=== PATIENT | male | born 1950 | race African-American/Black ===

== ENCOUNTER 2019-12-14 13:47 | Inpatient (IN) | payer MEDICARE ==
[2019-12-14 15:10] LABS: HEMATOCRIT 24.4 % (37.9-51.0); HEMOGLOBIN 8.3 g/dL (13.5-17.0); MEAN CORPUSCULAR HGB CONC 34.1 g/dL (32.0-36.0); MEAN CORPUSCULAR VOLUME 94 fl (80-97); PLATELET COUNT 312 10^3/uL (150-450); RED CELL DISTRIBUTION WIDTH 14.2 % (11.5-14.0)
[2019-12-14 15:16] LABS: ALKALINE PHOSPHATASE 721 U/L (38-126); ASPARTATE AMINO TRANSFERASE 19 U/L (17-59); BILIRUBIN,DIRECT 5.3 mg/dL (0.0-0.4); BILIRUBIN,TOTAL 5.7 mg/dL (0.2-1.3); CALCIUM 8.6 mg/dL (8.4-10.2); CHLORIDE 95 mmol/L (98-107); GLUCOSE 178 mg/dL (75-110); POTASSIUM 4.9 mmol/L (3.6-5.0); TOTAL PROTEIN 8.2 g/dL (6.3-8.2)
--- NOTE | 2019-12-14 15:22 | ER Document Report ---
ED General - General Chief Complaint: General Weakness Stated Complaint: GENERAL WEAKNESS Time Seen by Provider: 12/14/19 14:50 Notes: CHIEF COMPLAINT: Generalized weakness HPI: 69-year-old male who is a poor historian brought in for evaluation of generalized weakness over the last 2 months progressively worsening to the point that he is now not able to ambulate because of generalized weakness. Patient has not had fever nausea vomiting but was noticed to be jaundiced by EMS. Patient does report prior history of alcoholism but has not had a drink in 2 years per the patient. Patient does report abdominal discomfort. Patient does report shortness of breath. ROS: See HPI - all other systems were reviewed and are otherwise negative Constitutional: no fever Eyes: no drainage, no blurred vision, + jaundice ENT: no runny nose, no sore throat Cardiovascular: no chest pain Resp: + SOB, no cough GI: no vomiting, no diarrhea, + abdominal pain : no dysuria Integumentary: + rash Allergy: no hives Musculoskeletal: no extremity pain or swelling Neurological: no numbness/tingling, + weakness MEDICATIONS: I agree with the patient medications as charted by the RN. ALLERGIES: I agree with the allergies as charted by the RN. PAST MEDICAL HISTORY/PAST SURGICAL HISTORY: Reviewed and agree as charted by RN. SOCIAL HISTORY: Reviewed and agree as charted by RN. FAMILY HISTORY: No significant familial comorbid conditions directly related to patient complaint EXAM: Reviewed vital signs as charted by RN. CONSTITUTIONAL: Alert and oriented and responds appropriately to questions. Cachectic-appearing HEAD: Normocephalic; atraumatic EYES: PERRL; Conjunctivae clear, sclerae icteric ENT: normal nose; no rhinorrhea; moist mucous membranes; pharynx without lesions noted, no uvula edema or deviation, no tonsillar hypertrophy, phonation normal NECK: Supple without meningismus; non-tender; no cervical lymphadenopathy, no masses CARD: RRR; no murmurs, no clicks, no rubs, no gallops; symmetric distal pulses RESP: Normal chest excursion without splinting or tachypnea; breath sounds clear and equal bilaterally; no wheezes, no rhonchi, no rales, pulse oximetry 100% on room air not hypoxic ABD/GI: Normal bowel sounds; abdomen is distended, mildly generally tender. BACK: The back appears normal and is non-tender to palpation, there is no CVA tenderness EXT: Normal ROM in all joints; non-tender to palpation; no cyanosis, no e ffusions, no edema SKIN: Jaundiced color for age and race; warm; dry; good turgor; slight breakdown of skin in the sacral and upper gluteal region is noted NEURO: Moves all extremities equally; Motor and sensory function intact, mild generalized weakness in all extremities is noted PSYCH: The patient's mood and manner are appropriate. Grooming and personal hygiene are appropriate. MDM: 69-year-old male with unknown medical history brought for evaluation of shortness of breath abdominal distention and generalized weakness. Symptoms have been progressive apparently over the last 1 to 2 months. Patient now not able to walk on his own. Does live with his sister who moved him out of his ho use because of poor living conditions. Abdomen is significantly distended, patient is jaundiced. Will obtain screening labs, plan for CT of the abdomen given the distention but will obtain chest x-ray and KUB x-ray to evaluate for obstructive pattern - Related Data Allergies/Adverse Reactions: No Known Allergies Allergy (Verified 12/14/19 15:43) Past Medical History - Social History Smoking Status: Unknown if Ever Smoked Chew tobacco use (# tins/day): Yes Family History: Reviewed & Not Pertinent Patient has suicidal ideation: No Patient has homicidal ideation: No - Immunizations Hx Diphtheria, Pertussis, Tetanus Vaccination: No - greater than 5 years Hx Pneumococcal Vaccination: 06/18/10 Physical Exam - Vital signs Vitals: Resp Pulse Ox 28 H 100 12/14/19 13:53 12/14/19 13:53 Course - Re-evaluation Re-evalutation: 12/14/19 15:29 I did note that the patient's lactic acid was 5.7 this may be dehydration. He is mildly tachycardic, very cachectic. I will start hydrating patient towards 30 mL/kg for sepsis protocol. As I was speaking with the radiologist about the patient's x-ray imaging she believes he has a large volvulus, also believes his urinary bladder is massively distended, recommending Lynn catheter. Will have nursing place this. While I was speaking with nursing lab called about the patient's lab work, his creatinine is 22. Will not scan with IV contrast. 12/14/19 15:[address] Montero, attending. discussed with Dr. Townsend, surgery. Case was discussed. Given the severe metabolic abnormalities recommends medical or team truck driver admission but he will come see the patient in consult 12/14/19 15:[address] Avila the team truck driver who will come see the patient. We did discuss the patient's lab work and imaging studies. I did discuss further imaging with CT and pose the question of oral contrast versus no contrast he indicated that questions should be directed to the surgeon. I spoke with Dr. Townsend who indicates that he is more concerned about the medical comorbidities and issues going on with the patient at this time states he will come and see the patient and will address the contrast issue for CT imaging after he evaluates the patient and will discuss this with Dr. Avila to figure out further imaging as necessary. - Vital Signs Vital signs: Temp Pulse Resp BP Pulse Ox 24 H 152/81 H 100 12/14/19 14:01 12/14/19 14:01 12/14/19 14:01 - Laboratory Result Diagrams: 12/14/19 14:24 12/14/19 14:24 Laboratory results interpreted by me: 12/14/19 12/14/19 12/14/19 14:24 14:24 14:24 WBC 27.0 H RBC 2.60 L Hgb 8.3 L Hct 24.4 L RDW 14.2 H Seg Neuts % (Manual) 89 H Band Neutrophils % 6 H Lymphocytes % (Manual) 1 L Abs Neuts (Manual) 25.7 H Abs Lymphs (Manual) 0.3 L Sodium 135.0 L Chloride 95 L Carbon Dioxide < 5 L* BUN 217 H Creatinine 22.36 H Est GFR ( Amer) 2 L Est GFR (MDRD) Non-Af 2 L Glucose 178 H Lactic Acid 5.7 H Total Bilirubin 5.7 H Direct Bilirubin 5.3 H Alkaline Phosphatase 721 H Creatine Kinase NT-Pro-B Natriuret Pep Lipase 483.2 H 12/14/19 12/14/19 14:24 14:24 WBC RBC Hgb Hct RDW Seg Neuts % (Manual) Band Neutrophils % Lymphocytes % (Manual) Abs Neuts (Manual) Abs Lymphs (Manual) Sodium Chloride Carbon Dioxide BUN Creatinine Est GFR ( Amer) Est GFR (MDRD) Non-Af Glucose Lactic Acid Total Bilirubin Direct Bilirubin Alkaline Phosphatase Creatine Kinase 32 L NT-Pro-B Natriuret Pep 1240 H Lipase Discharge - Discharge Clinical Impression: Sigmoid volvulus, Jaundice Sepsis Qualifiers: Sepsis type: sepsis due to unspecified organism Sepsis acute organ dysfunction status: with acute organ dysfunction Severe sepsis acute organ dysfunction type: acute renal failure Acute renal failure type: unspecified Severe sepsis shock status: unspecified Qualified Code(s): A41.9 - Sepsis, unspecified organism; R65.20 - Severe sepsis without septic shock; N17.9 - Acute kidney failure, unspecified Acute renal failure (ARF) Qualifiers: Acute renal failure type: unspecified Qualified Code(s): N17.9 - Acute kidney failure, unspecified Condition: Serious Disposition: ADMITTED INPATIENT Admitting Provider: Margarita (Equipment Engineering Technician) Unit Admitted: ICU
[2019-12-14 15:29] LABS: ABSOLUTE LYMPHOCYTES# (MANUAL) 0.3 10^3/uL (0.5-4.7); ABSOLUTE MONOCYTES # (MANUAL) 1.1 10^3/uL (0.1-1.4); BAND NEUTROPHILS % (MANUAL) 6 % (3-5); BASOPHILS % (MANUAL) 0 % (0-2); EOSINOPHILS % (MANUAL) 0 % (0-6); LYMPHOCYTES % (MANUAL) 1 % (13-45); MONOCYTES % (MANUAL) 4 % (3-13); SEGMENTED NEUTROPHILS % (MAN) 89 % (42-78); TOTAL CELLS COUNTED 100
[2019-12-14] MEDS ORDERED: RINGERS SOLUTION,LACTATED 1,000 ML IV ONE (15:29)
[2019-12-14 15:30] LABS: ANISOCYTOSIS SLIGHT; PLATELET COMMENT ADEQUATE; TOXIC GRANULATION SLIGHT
[2019-12-14 15:31] LABS: BLOOD UREA NITROGEN 217 mg/dL (7-20)
[2019-12-14 15:32] LABS: CARBON DIOXIDE < 5 mmol/L (22-30)
--- NOTE | 2019-12-14 15:33 | RADIOLOGY REPORT (SQ) ---
EXAM DESCRIPTION: CHEST SINGLE VIEW IMAGES COMPLETED DATE/TIME: 12/14/2019 3:22 pm REASON FOR STUDY: sob COMPARISON: None. EXAM PARAMETERS: NUMBER OF VIEWS: One view. TECHNIQUE: Single frontal radiographic view of the chest acquired. RADIATION DOSE: NA LIMITATIONS: None. FINDINGS: LUNGS AND PLEURA: Minimal right basilar atelectasis. Lungs otherwise well inflated and cl ear. No pleural effusion. No pneumothorax MEDIASTINUM AND HILAR STRUCTURES: No masses. Contour normal. HEART AND VASCULAR STRUCTURES: Heart normal in size. Normal vasculature. BONES: No acute findings. HARDWARE: None in the chest. OTHER: Gaseous distension of bowel loops under the hemidiaphragms IMPRESSION: Right basilar atelectasis Gaseous distention of bowel loops under the right and left hemidiaphragm TECHNICAL DOCUMENTATION: JOB ID: [id number] 2010 [employer]- All Rights Reserved Reading location - IP/workstation name: [email or web address]
[2019-12-14] MEDS ORDERED: ONDANSETRON HCL INJ/PF 4 MG/2 ML SDV IV ONE (15:35)
--- NOTE | 2019-12-14 15:39 | RADIOLOGY REPORT (SQ) ---
EXAM DESCRIPTION: KUB/ABDOMEN (SINGLE VIEW) IMAGES COMPLETED DATE/TIME: 12/14/2019 3:22 pm REASON FOR STUDY: abd distention COMPARISON: None. NUMBER OF VIEWS: One view. TECHNIQUE: Supine radiographic image of the abdomen acquired. LIMITATIONS: None. FINDINGS: BOWEL GAS PATTERN: Massively distended colon in the pelvis worrisome for sigmoid volvulus. Markedly distended urinary bladder. Findings called to Emil Hodgson in the emergency room. CALCIFICATIONS: No suspicious calcifications. SOFT TISSUES: No hepatosplenomegaly. HARDWARE: None in the abdomen. BONES: No acute fracture. No worrisome bone lesions. OTHER: No other significant finding. IMPRESSION: Marked urinary bladder distention Distended tortuous sigmoid colon worrisome for sigmoid volvulus TECHNICAL DOCUMENTATION: JOB ID: [id number] 2010 [employer]- All Rights Reserved Reading location - IP/workstation name: [email or web address]
[2019-12-14 15:43] LABS: NT PRO BNP 1240 pg/mL (<125)
[2019-12-14 15:44] LABS: TROPONIN I < 0.012 ng/mL
[2019-12-14] MEDS ORDERED: PIPERACILLIN/TAZOBACTAM 3.375 GM VIAL IV ONE (15:44)
[2019-12-14 16:06] LABS: APPEARANCE,URINE SLIGHTLY-CLOUDY; BILIRUBIN,URINE NEGATIVE (NEGATIVE); COLOR,URINE AMBER; GLUCOSE, URINE NEGATIVE (NEGATIVE); KETONES,URINE NEGATIVE (NEGATIVE); LEUKOCYTE ESTERASE,URINE NEGATIVE (NEGATIVE); NITRITE,URINE NEGATIVE (NEGATIVE); PROTEIN,URINE 30 mg/dL (NEGATIVE); URINE SPECIFIC GRAVITY 1.013; UROBILINOGEN,URINE NEGATIVE mg/dL (<2.0)
--- NOTE | 2019-12-14 16:21 | PDOC CRITICAL CARE PROG REPORT ---
General Date:: 12/14/19 Resuscitation Status: Full Code Events in the past 12 to 24 Hours:: 69-year-old -Togolese male who has had no recent medical care. Staying in our records is an ER visit in 2010 for hypertension. Is been ill for several months and was living alone but now lives with his sister. He is become very weak and is not ambulatory anymore. He presents with abdominal distention and some shortness of breath. He is found to have what is almost certainly a large bowel obstruction possibly due to a volvulus but obviously colon cancer is a possibility given the other findings. He is not a very good historian. Physical Exam Vital Signs: Temp Pulse Resp BP Pulse Ox 24 H 152/81 H 100 12/14/19 14:01 12/14/19 14:01 12/14/19 14:01 Intake & Output 12/13/19 12/14/19 12/15/19 06:59 06:59 06:59 Weight 67.2 kg Weight/Height Weight 67.2 kg Height 5 ft 6 in General appearance: PRESENT: disheveled, mild distress, thin Eye exam: PRESENT: conjunctival injection, EOMI, PERRLA, scleral icterus Mouth exam: PRESENT: dry mucosa, neck supple Neck exam: ABSENT: thyromegaly Respiratory exam: PRESENT: decreased breath sounds Cardiovascular exam: PRESENT: RRR Pulses: PRESENT: +1 pedal pulses bilateral GI/Abdominal exam: PRESENT: diminished bowel sounds, distended, firm Rectal exam: ABSENT: heme (+) stool Psychiatric exam: PRESENT: depressed Skin exam: PRESENT: jaundice Laboratory/Radiographs Laboratory Results: 12/14/19 14:24 12/14/19 14:24 12/14/19 12/14/19 12/14/19 14:24 14:24 14:24 WBC 27.0 H RBC 2.60 L Hgb 8.3 L Hct 24.4 L MCV 94 MCH 32.0 MCHC 34.1 RDW 14.2 H Plt Count 312 Seg Neutrophils % Not Reportable Sodium 135.0 L Potassium 4.9 Chloride 95 L Carbon Dioxide < 5 L* Anion Gap Not Reportable BUN 217 H Creatinine 22.36 H Est GFR ( Amer) 2 L Glucose 178 H Lactic Acid 5.7 H Calcium 8.6 Total Bilirubin 5.7 H AST 19 Alkaline Phosphatase 721 H Ammonia Total Protein 8.2 Albumin 4.0 Lipase 483.2 H Urine Color Urine Appearance Urine pH Ur Specific [place] Urine Protein Urine Glucose (UA) Urine Ketones Urine Blood Urine Nitrite Ur Leukocyte Esterase Urine WBC (Auto) Urine RBC (Auto) 12/14/19 12/14/19 15:25 15:45 WBC RBC Hgb Hct MCV MCH MCHC RDW Plt Count Seg Neutrophils % Sodium Potassium Chloride Carbon Dioxide Anion Gap BUN Creatinine Est GFR ( Amer) Glucose Lactic Acid Calcium Total Bilirubin AST Alkaline Phosphatase Ammonia 153.6 H Total Protein Albumin Lipase Urine Color KATIA Urine Appearance SLIGHTLY-CLOUDY Urine pH 5.0 Ur Specific [place] 1.013 Urine Protein 30 H Urine Glucose (UA) NEGATIVE Urine Ketones NEGATIVE Urine Blood SMALL H Urine Nitrite NEGATIVE Ur Leukocyte Esterase NEGATIVE Urine WBC (Auto) 16 Urine RBC (Auto) 21 12/14/19 12/14/19 14:24 14:24 Creatine Kinase 32 L Troponin I < 0.012 NT-Pro-B Natriuret Pep 1240 H Impressions: Chest X-Ray 12/14/19 15:01 IMPRESSION: Right basilar atelectasis Gaseous distention of bowel loops under the right and left hemidiaphragm KUB X-Ray 12/14/19 15:01 IMPRESSION: Marked urinary bladder distention Distended tortuous sigmoid colon worrisome for sigmoid volvulus Assessment and Plan - Diagnosis (1) Sepsis Qualifiers: Sepsis type: sepsis due to unspecified organism Sepsis acute organ dysfunction status: with acute organ dysfunction Severe sepsis acute organ dysfunction type: acute renal failure Acute renal failure type: unspecified Severe sepsis shock status: unspecified Is this a current diagnosis for this admission?: Yes Plan Summary: Impression: Sepsis from a bowel obstruction or bowel ischemia Acute renal failure secondary to above Jaundiced secondary to above or possibly liver mets Chest x-ray may well show a right hilar mass Plan: Aggressive of fluids Agree with Zosyn Blood cultures sent CT pelvis/abd Surgery consult Depending on CT findings, urgent surgery Given this presentation and his cachexia prognosis is guarded at best Critical Time Critical Time (minutes): 35 Level of Care: ICU -: 1. The care of a critical patient is a dynamic process. This note is a outbound call center representative synopsis but static in nature. The timeframe for treatments given in order is not necessarily the actual time these treatments may have been done. 2. This patient requires critical care secondary to ongoing requirements for therapy not offered or safe outside the critical care environment. Transfer to a lower level of care will result in altered life or limb morbidity and mortality. 3. Multidisciplinary rounds completed. 4. ABCDE bundle addressed.
[2019-12-14 16:32] LABS: ARTERIAL BLOOD BASE EXCESS -18.3 mmol/L; ARTERIAL BLOOD HCO3 7.1 mmol/L (20-24); ARTERIAL BLOOD O2 SATURATION 97.6 % (94-98); ARTERIAL BLOOD PH 7.25 (7.35-7.45); ARTERIAL BLOOD PO2 113.5 mmHg (80-100); ARTERIAL BLOOD TOTAL CO2 7.6 mmol/L (23-27)
[2019-12-14 16:33] LABS: ARTERIAL BLOOD FIO2 ROOM AIR
[2019-12-14 16:34] LABS: ARTERIAL BLOOD PCO2 16.6 mmHg (35-45)
--- NOTE | 2019-12-14 17:15 | PDOC CONSULTATION ---
Consultation Consult Date: 12/14/19 Attending physician:: DYLAN OWENS Provider Consulted: YULI CLAY Consult reason:: Rule out sigmoid volvulus History of Present Illness Admission Date/PCP: 12/14/19 16:11 History of Present Illness: ROCCO PADRON is a 69 year old male Is brought to the emergency department via ground rescue at the request of his sister. Patient cannot provide history of presenting illness. It is uncertain how long he has been sick. He does not see a doctor. Last visit to [facility] 2010 for hypertension. Patient was evaluated emergency department where he was found to be jaundiced, acidotic, transiently hypotensive. He received IV fluids, intravenous antibiotics. Abdominal film shows a massively distended colon with stool, possibly sigmoid volvulus. Surgery was consulted. Patient being admitted to the ICU for port of care. Plans are for CT scan of the abdomen and pelvis. Past Medical History Medical History: Other - Unable to obtained due to patient non-compos mentis Past Surgical History Past Surgical History: Unknown of any past surgical history; no historian to assist Social History Smoking Status: Unknown if Ever Smoked - Advance Directive Resuscitation Status: Full Code Family History Family History: None, Reviewed & Not Pertinent Parental Family History Reviewed: No Children Family History Reviewed: No Sibling(s) Family History Reviewed.: No Medication/Allergy Allergies/Adverse Reactions: No Known Allergies Allergy (Verified 12/14/19 15:43) Review of Systems ROS unobtainable: Due to mental status, Other - Patient cannot provide a history Physical Exam Vital Signs: Temp Pulse Resp BP Pulse Ox 20 145/86 H 100 12/14/19 16:01 12/14/19 16:01 12/14/19 16:01 Intake & Output 12/13/19 12/14/19 12/15/19 06:59 06:59 06:59 Intake Total 1000 Balance 1000 Weight 67.2 kg General appearance: PRESENT: other - Disheveled Afro-Thai male, poor dentition: Old blood in his mouth. Eye exam: PRESENT: scleral icterus - Sclerae icteric, other Mouth exam: PRESENT: other - Dried blood, poor dentition Neck exam: PRESENT: other - Limited range of motion of the neck Respiratory exam: PRESENT: rhonchi Cardiovascular exam: PRESENT: RRR Pulses: PRESENT: normal carotid pulses, normal femoral pulses GI/Abdominal exam: PRESENT: other - Abdomen is distended, moderately tympanitic, semi-firm. Small reducible umbilical hernia. Rectal exam: PRESENT: deferred Extremities exam: PRESENT: +2 edema Neurological exam: PRESENT: other - Awake communicates but disoriented Psychiatric exam: PRESENT: other - Reasonably calm Skin exam: PRESENT: jaundice Results Laboratory Results: 12/14/19 14:24 12/14/19 14:24 12/14/19 12/14/19 12/14/19 14:24 14:24 14:24 WBC 27.0 H RBC 2.60 L Hgb 8.3 L Hct 24.4 L MCV 94 MCH 32.0 MCHC 34.1 RDW 14.2 H Plt Count 312 Seg Neutrophils % Not Reportable Carbonic Acid HCO3/H2CO3 Ratio ABG pH ABG pCO2 ABG pO2 ABG HCO3 ABG O2 Saturation ABG Base Excess FiO2 Sodium 135.0 L Potassium 4.9 Chloride 95 L Carbon Dioxide < 5 L* Anion Gap Not Reportable BUN 217 H Creatinine 22.36 H Est GFR ( Amer) 2 L Glucose 178 H Lactic Acid 5.7 H Calcium 8.6 Total Bilirubin 5.7 H AST 19 Alkaline Phosphatase 721 H Ammonia Total Protein 8.2 Albumin 4.0 Lipase 483.2 H Urine Color Urine Appearance Urine pH Ur Specific [place] Urine Protein Urine Glucose (UA) Urine Ketones Urine Blood Urine Nitrite Ur Leukocyte Esterase Urine WBC (Auto) Urine RBC (Auto) 12/14/19 12/14/19 12/14/19 15:25 15:45 16:13 WBC RBC Hgb Hct MCV MCH MCHC RDW Plt Count Seg Neutrophils % Carbonic Acid 0.50 L HCO3/H2CO3 Ratio 14:1 ABG pH 7.25 L ABG pCO2 16.6 L* ABG pO2 113.5 H ABG HCO3 7.1 L ABG O2 Saturation 97.6 ABG Base Excess -18.3 FiO2 ROOM AIR Sodium Potassium Chloride Carbon Dioxide Anion Gap BUN Creatinine Est GFR ( Amer) Glucose Lactic Acid Calcium Total Bilirubin AST Alkaline Phosphatase Ammonia 153.6 H Total Protein Albumin Lipase Urine Color KATIA Urine Appearance SLIGHTLY-CLOUDY Urine pH 5.0 Ur Specific [place] 1.013 Urine Protein 30 H Urine Glucose (UA) NEGATIVE Urine Ketones NEGATIVE Urine Blood SMALL H Urine Nitrite NEGATIVE Ur Leukocyte Esterase NEGATIVE Urine WBC (Auto) 16 Urine RBC (Auto) 21 12/14/19 12/14/19 14:24 14:24 Creatine Kinase 32 L Troponin I < 0.012 NT-Pro-B Natriuret Pep 1240 H Impressions: Chest X-Ray 12/14/19 15:01 IMPRESSION: Right basilar atelectasis Gaseous distention of bowel loops under the right and left hemidiaphragm KUB X-Ray 12/14/19 15:01 IMPRESSION: Marked urinary bladder distention Distended tortuous sigmoid colon worrisome for sigmoid volvulus Assessment & Plan - Diagnosis (1) Sigmoid volvulus Is this a current diagnosis for this admission?: Yes Plan: Impression: Acute septic picture dehydration acute renal failure metabolic acidosis and a distended sigmoid colon Consistent with sigmoid volvulus; patient is poor historian, unable to obtain past medical history. Recommendations: 1. Resuscitation with IV fluids; agree with admission to the ICU, surgery consulting 2. Agree with CT scan of the abdomen and pelvis with at least an attempt at some oral contrast. Caution to be exercised to reduce risk of aspiration. 3. Patient may require emergent exploratory surgery if his condition does not improve in the near future. Patient's prognosis extremely guarded due to multiple acute embolic and physiologic derangements. (2) Metabolic acidosis Is this a current diagnosis for this admission?: Yes (3) Acute renal failure (ARF) Qualifiers: Acute renal failure type: unspecified Qualified Code(s): N17.9 - Acute kidney failure, unspecified Is this a current diagnosis for this admission?: Yes (4) Jaundice Is this a current diagnosis for this admission?: Yes (5) Sepsis Qualifiers: Sepsis type: sepsis due to unspecified organism Sepsis acute organ dysfunction status: with acute organ dysfunction Severe sepsis acute organ dysfunction type: acute renal failure Acute renal failure type: unspecified Severe sepsis shock status: unspecified Qualified Code(s): A41.9 - Sepsis, unspecified organism; R65.20 - Severe sepsis without septic shock; N17.9 - Acute kidney failure, unspecified Is this a current diagnosis for this admission?: Yes - Time Time Spent: 30 to 50 Minutes Smoking Cessation Education: 3 to 10 minutes
[2019-12-14] MEDS ORDERED: NORMAL SALINE 1000 ML 1,000 ML IV PRN (17:31)
--- NOTE | 2019-12-14 18:17 | RADIOLOGY REPORT (SQ) ---
EXAM DESCRIPTION: CT ABD/PELVIS ORAL ONLY IMAGES COMPLETED DATE/TIME: 12/14/2019 5:58 pm REASON FOR STUDY: abd dist COMPARISON: None. TECHNIQUE: CT scan of the abdomen and pelvis performed with oral contrast and no intravenous contras t. Images reviewed with lung, soft tissue, and bone windows. Reconstructed coronal and sagittal MPR i mages reviewed. All images stored on PACS. All CT scanners at this facility use dose modulation, iterative reconstruction, and/or weight based d osing when appropriate to reduce radiation dose to as low as reasonably achievable (ALARA). [facility]: Dose Right [facility]: CareDose [facility]: Dose Right [facility]: Teradose 4D [facility]: Smart SmashFly RADIATION DOSE: CT Rad equipment meets quality standard of care and radiation dose reduction techniq ues were employed. CTDIvol: 4.8 mGy. DLP: 284 mGy-cm.mGy. LIMITATIONS: None. FINDINGS: LOWER CHEST: No significant findings. No nodules or infiltrates. NON-CONTRASTED LIVER, SPLEEN, ADRENALS: Evaluation limited by lack of IV contrast. No identified sign ificant masses. PANCREAS: Calcifications along the distribution of the pancreas may reflect chronic pancreatitis. GALLBLADDER: No identified stones by CT criteria. No inflammatory changes to suggest cholecystitis. RIGHT KIDNEY AND URETER: No overt renal calculi or gross obstruction. Limited evaluation. LEFT KIDNEY AND URETER: No overt renal calculi are gross obstruction. Limited evaluation. AORTA AND RETROPERITONEUM: Atherosclerotic aorta without aneurysm. BOWEL AND PERITONEAL CAVITY: Massively dilated markedly redundant stool-filled distal colon. This pr edominantly involves the descending and tortuous sigmoid colon and rectum. Proximal large bowel is d ifficult to discretely visualize, likely completely decompressed. No small bowel dilatation suggeste d. There is narrowing in the left lower quadrant at the junction of the descending colon and sigmoid colon. This is not felt to be a fixed point of obstruction but rather represents interposition of t his segment of colon between the iliopsoas muscle and adjacent distended colon. Please see image 58/ 106. No clear point of twisting/volvulus appreciated. There is mild ascites. No free air detected. APPENDIX: Not visualized. PELVIS, BLADDER, AND ABDOMINAL WALL: Lynn catheter decompresses the bladder. Bladder mildly thick-w alled. No bowel containing hernia. BONES: No significant findings. OTHER: Extremely heterogeneous bone density. 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 Corre late with history. IMPRESSION: 1. Massively dilated stool-filled redundant sigmoid colon. Distention also extends to involve the de scending colon. While sigmoid volvulus remains in the differential, it is felt to be less likely as a clear point of twisting or fixed obstruction is not identified. 2. Mild ascites. TECHNICAL DOCUMENTATION: JOB ID: [id number] Quality ID # [id number]: Final reports with documentation of one or more dose reduction techniques (e.g., Au tomated exposure control, adjustment of the mA and/or kV according to patient size, use of iterative reconstruction technique) 2010 [employer]- All Rights Reserved Reading location - IP/workstation name: [email or web address]
[2019-12-14] MEDS: DEXTROSE 5%-LACTATED RINGERS 1,000 ML IV PRN (19:50)
[2019-12-14] MEDS ORDERED: INFLUENZA QUAD (6MOS+) 2019-20 VAC 0.5 ML SYR IM ONE (20:09)
[2019-12-14] MEDS ORDERED: PIPERACILLIN/TAZOBACTAM 2.25 GM VIAL IV PRN (20:31)
[2019-12-14] MEDS: PIPERACILLIN SODIUM/TAZOBACTAM 2.25 GM in NORMAL SALINE 50 ML IV SCH (21:36)
[2019-12-15] MEDS: DEXTROSE 5%-LACTATED RINGERS 1,000 ML IV PRN (03:21)
[2019-12-15] MEDS: PIPERACILLIN SODIUM/TAZOBACTAM 2.25 GM in NORMAL SALINE 50 ML IV SCH ×4 (03:22→21:34)
[2019-12-15] MEDS ORDERED: VECURONIUM BROMIDE INJ 10 MG VIAL IV ONE (07:49)
[2019-12-15] MEDS ORDERED: SUCCINYLCHOLINE CHLORIDE INJ 200 MG/10 ML VIAL ONE (07:49)
[2019-12-15 08:28] LABS: PROTHROMBIN TIME 18.3 SEC (11.4-15.4)
[2019-12-15 08:29] LABS: HEMATOCRIT 21.5 % (37.9-51.0); MEAN CORPUSCULAR HEMOGLOBIN 32.6 pg (27.0-33.4); MEAN CORPUSCULAR HGB CONC 35.4 g/dL (32.0-36.0); MEAN CORPUSCULAR VOLUME 92 fl (80-97); PARTIAL THROMBOPLASTIN TIME 36.6 SEC (23.5-35.8); PLATELET COUNT 240 10^3/uL (150-450); RED BLOOD COUNT 2.33 10^6/uL (4.35-5.55); RED CELL DISTRIBUTION WIDTH 14.5 % (11.5-14.0); WHITE BLOOD COUNT 16.1 10^3/uL (4.0-10.5)
[2019-12-15 08:42] LABS: ALBUMIN 3.2 g/dL (3.5-5.0); ALKALINE PHOSPHATASE 426 U/L (38-126); ASPARTATE AMINO TRANSFERASE 29 U/L (17-59); BILIRUBIN,DIRECT 3.7 mg/dL (0.0-0.4); BILIRUBIN,TOTAL 4.9 mg/dL (0.2-1.3); CALCIUM 9.4 mg/dL (8.4-10.2); GLUCOSE 95 mg/dL (75-110); TOTAL PROTEIN 6.8 g/dL (6.3-8.2)
[2019-12-15 08:57] LABS: ABSOLUTE LYMPHOCYTES# (MANUAL) 0.3 10^3/uL (0.5-4.7); ABSOLUTE MONOCYTES # (MANUAL) 0.8 10^3/uL (0.1-1.4); BAND NEUTROPHILS % (MANUAL) 9 % (3-5); BASOPHILS % (MANUAL) 0 % (0-2); EOSINOPHILS % (MANUAL) 0 % (0-6); LYMPHOCYTES % (MANUAL) 2 % (13-45); MONOCYTES % (MANUAL) 5 % (3-13); NUCLEATED RED BLOOD CELLS 1 /100 WBC (0); SEGMENTED NEUTROPHILS % (MAN) 84 % (42-78); TOTAL CELLS COUNTED 100
--- NOTE | 2019-12-15 08:57 | EKG REPORT ---
SEVERITY:- ABNORMAL ECG - SINUS TACHYCARDIA LOW VOLTAGE IN FRONTAL LEADS POOR R WAVE PROGRESSION ANTERIOR LEADS : Confirmed by: Bear Castellanos MD 15-Dec-2019 08:56:49
[2019-12-15 08:58] LABS: ANISOCYTOSIS SLIGHT; BURR CELLS SLIGHT; PLATELET COMMENT ADEQUATE; POLYCHROMASIA 1+
[2019-12-15 09:00] LABS: CHLORIDE 112 mmol/L (98-107)
[2019-12-15 09:03] LABS: ANION GAP 22 (5-19); POTASSIUM 3.6 mmol/L (3.6-5.0)
[2019-12-15 09:04] LABS: BLOOD UREA NITROGEN 185 mg/dL (7-20)
[2019-12-15 09:05] LABS: CARBON DIOXIDE 8 mmol/L (22-30)
[2019-12-15 09:16] LABS: HEMOGLOBIN 7.6 g/dL (13.5-17.0)
--- NOTE | 2019-12-15 09:57 | PDOC PROGRESS REPORT ---
Subjective Progress Note for:: 12/15/19 Reason For Visit: BOWEL OBSTRUCTION Patient examined in the ICU. He remains hemodynamically stable. No significant events overnight. Rectal drainage tube installed with acceptable results. Urine output good, and turbidity clearing over the last 12 hours. Physical Exam Vital Signs: Temp Pulse Resp BP Pulse Ox 98.6 F 110 H 16 113/70 100 12/15/19 08:00 12/15/19 08:00 12/15/19 08:00 12/15/19 08:00 12/15/19 08:00 Intake & Output 12/14/19 12/15/19 12/16/19 06:59 06:59 06:59 Intake Total 3040 Output Total 3145 500 Balance -105 -500 Weight 55.9 kg General appearance: PRESENT: other - Patient appears in no distress. Mentation is fair. Appears in no distress GI/Abdominal exam: PRESENT: other Results Laboratory Results: 12/15/19 08:11 12/15/19 08:11 12/14/19 12/14/19 12/14/19 14:24 14:24 14:24 WBC 27.0 H RBC 2.60 L Hgb 8.3 L Hct 24.4 L MCV 94 MCH 32.0 MCHC 34.1 RDW 14.2 H Plt Count 312 Seg Neutrophils % Not Reportable Carbonic Acid HCO3/H2CO3 Ratio ABG pH ABG pCO2 ABG pO2 ABG HCO3 ABG O2 Saturation ABG Base Excess FiO2 Sodium 135.0 L Potassium 4.9 Chloride 95 L Carbon Dioxide < 5 L* Anion Gap Not Reportable BUN 217 H Creatinine 22.36 H Est GFR ( Amer) 2 L Glucose 178 H Lactic Acid 5.7 H Calcium 8.6 Total Bilirubin 5.7 H AST 19 Alkaline Phosphatase 721 H Ammonia Total Protein 8.2 Albumin 4.0 Lipase 483.2 H Urine Color Urine Appearance Urine pH Ur Specific [place] Urine Protein Urine Glucose (UA) Urine Ketones Urine Blood Urine Nitrite Ur Leukocyte Esterase Urine WBC (Auto) Urine RBC (Auto) 12/14/19 12/14/19 12/14/19 15:25 15:45 16:13 WBC RBC Hgb Hct MCV MCH MCHC RDW Plt Count Seg Neutrophils % Carbonic Acid 0.50 L HCO3/H2CO3 Ratio 14:1 ABG pH 7.25 L ABG pCO2 16.6 L* ABG pO2 113.5 H ABG HCO3 7.1 L ABG O2 Saturation 97.6 ABG Base Excess -18.3 FiO2 ROOM AIR Sodium Potassium Chloride Carbon Dioxide Anion Gap BUN Creatinine Est GFR ( Amer) Glucose Lactic Acid Calcium Total Bilirubin AST Alkaline Phosphatase Ammonia 153.6 H Total Protein Albumin Lipase Urine Color KATIA Urine Appearance SLIGHTLY-CLOUDY Urine pH 5.0 Ur Specific [place] 1.013 Urine Protein 30 H Urine Glucose (UA) NEGATIVE Urine Ketones NEGATIVE Urine Blood SMALL H Urine Nitrite NEGATIVE Ur Leukocyte Esterase NEGATIVE Urine WBC (Auto) 16 Urine RBC (Auto) 21 12/15/19 12/15/19 08:11 08:11 WBC 16.1 H RBC 2.33 L Hgb 7.6 L Hct 21.5 L MCV 92 MCH 32.6 MCHC 35.4 RDW 14.5 H Plt Count 240 Seg Neutrophils % Not Reportable Carbonic Acid HCO3/H2CO3 Ratio ABG pH ABG pCO2 ABG pO2 ABG HCO3 ABG O2 Saturation ABG Base Excess FiO2 Sodium 141.8 Potassium 3.6 D Chloride 112 H Carbon Dioxide 8 L* Anion Gap 22 H BUN 185 H D Creatinine 12.29 H Est GFR ( Amer) 5 L Glucose 95 Lactic Acid Calcium 9.4 Total Bilirubin 4.9 H AST 29 Alkaline Phosphatase 426 H Ammonia Total Protein 6.8 Albumin 3.2 L Lipase Urine Color Urine Appearance Urine pH Ur Specific [place] Urine Protein Urine Glucose (UA) Urine Ketones Urine Blood Urine Nitrite Ur Leukocyte Esterase Urine WBC (Auto) Urine RBC (Auto) 12/14/19 12/14/19 14:24 14:24 Creatine Kinase 32 L Troponin I < 0.012 NT-Pro-B Natriuret Pep 1240 H Impressions: Abdomen/Pelvis CT 12/14/19 00:00 IMPRESSION: 1. Massively dilated stool-filled redundant sigmoid colon. Distention also extends to involve the descending colon. While sigmoid volvulus remains in the differential, it is felt to be less likely as a clear point of twisting or fixed obstruction is not identified. 2. Mild ascites. Chest X-Ray 12/14/19 15:01 IMPRESSION: Right basilar atelectasis Gaseous distention of bowel loops under the right and left hemidiaphragm KUB X-Ray 12/14/19 15:01 IMPRESSION: Marked urinary bladder distention Distended tortuous sigmoid colon worrisome for sigmoid volvulus Assessment & Plan - Diagnosis (1) Sigmoid volvulus Is this a current diagnosis for this admission?: Yes Plan: Impression: Slight clinical improvement in clinical picture, and laboratory profile across all organ systems. Nonetheless still concerned about persisting metabolic acidosis, which may reflect ischemic bowel. Recommendations: 1. Initiate bicarb drip; this was discussed with webmethods architect 2. We will obtain a abdominal film later today for comparison. 3. If patient's clinical metabolic acidosis does not improve significantly, despite optimal medical therapy, exploratory laparotomy may be required. (2) Metabolic acidosis Is this a current diagnosis for this admission?: Yes (3) Acute renal failure (ARF) Qualifiers: Acute renal failure type: unspecified Qualified Code(s): N17.9 - Acute kidney failure, unspecified Is this a current diagnosis for this admission?: Yes (4) Jaundice Is this a current diagnosis for this admission?: Yes (5) Sepsis Qualifiers: Sepsis type: sepsis due to unspecified organism Sepsis acute organ dysfunction status: with acute organ dysfunction Severe sepsis acute organ dysfunction type: acute renal failure Acute renal failure type: unspecified Severe sepsis shock status: unspecified Qualified Code(s): A41.9 - Sepsis, unspecified organism; R65.20 - Severe sepsis without septic shock; N17.9 - Acute kidney failure, unspecified Is this a current diagnosis for this admission?: Yes - Time Time Spent: 30 to 50 Minutes
[2019-12-15] MEDS ORDERED: DEXTROSE 5%-LACTATED RINGERS 1,000 ML IV PRN (13:13)
--- NOTE | 2019-12-15 13:23 | PDOC CRITICAL CARE PROG REPORT ---
General Date:: 12/15/19 ICU Day:: 2 Hospital Day:: 2 Resuscitation Status: Full Code Events in the past 12 to 24 Hours:: 69-year-old -[place] male who has had no recent medical care except HTN. Has been ill for several months and was living alone but now lives with his sister. He is become very weak and is not ambulatory anymore. He presents with abdominal distention and some shortness of breath. He is found to have what is almost certainly a large bowel obstruction possibly due to a volvulus but obviously colon cancer is a possibility given the other findings. He has started passing stool and actually a large amount with less abdominal distention and improvement in his acidosis. Care discussed with surgery at some length. Physical Exam Vital Signs: Temp Pulse Resp BP Pulse Ox 98.8 F 122 H 24 H 106/61 97 12/15/19 12:00 12/15/19 12:00 12/15/19 12:07 12/15/19 12:07 12/15/19 12:00 Intake & Output 12/14/19 12/15/19 12/16/19 06:59 06:59 06:59 Intake Total 3040 Output Total 3145 1225 Balance -105 -1225 Weight 55.9 kg Weight/Height Weight 55.9 kg Height 5 ft 6 in General appearance: PRESENT: mild distress Head exam: PRESENT: normocephalic Eye exam: PRESENT: EOMI, PERRLA, scleral icterus Mouth exam: PRESENT: neck supple Neck exam: ABSENT: JVD, lymphadenopathy Respiratory exam: PRESENT: decreased breath sounds Cardiovascular exam: PRESENT: RRR Pulses: PRESENT: +1 pedal pulses bilateral GI/Abdominal exam: PRESENT: distended - but significantly decreased, hypoactive bowel sounds Extremities exam: ABSENT: pedal edema Neurological exam: PRESENT: awake, oriented to person. ABSENT: oriented to place, oriented to time, oriented to situation Skin exam: PRESENT: dry, warm Laboratory/Radiographs Laboratory Results: 12/15/19 08:11 12/15/19 08:11 12/14/19 12/14/19 12/14/19 14:24 14:24 14:24 WBC 27.0 H RBC 2.60 L Hgb 8.3 L Hct 24.4 L MCV 94 MCH 32.0 MCHC 34.1 RDW 14.2 H Plt Count 312 Seg Neutrophils % Not Reportable Carbonic Acid HCO3/H2CO3 Ratio ABG pH ABG pCO2 ABG pO2 ABG HCO3 ABG O2 Saturation ABG Base Excess FiO2 Sodium 135.0 L Potassium 4.9 Chloride 95 L Carbon Dioxide < 5 L* Anion Gap Not Reportable BUN 217 H Creatinine 22.36 H Est GFR ( Amer) 2 L Glucose 178 H Lactic Acid 5.7 H Calcium 8.6 Total Bilirubin 5.7 H AST 19 Alkaline Phosphatase 721 H Ammonia Total Protein 8.2 Albumin 4.0 Lipase 483.2 H Urine Color Urine Appearance Urine pH Ur Specific [place] Urine Protein Urine Glucose (UA) Urine Ketones Urine Blood Urine Nitrite Ur Leukocyte Esterase Urine WBC (Auto) Urine RBC (Auto) 12/14/19 12/14/19 12/14/19 15:25 15:45 16:13 WBC RBC Hgb Hct MCV MCH MCHC RDW Plt Count Seg Neutrophils % Carbonic Acid 0.50 L HCO3/H2CO3 Ratio 14:1 ABG pH 7.25 L ABG pCO2 16.6 L* ABG pO2 113.5 H ABG HCO3 7.1 L ABG O2 Saturation 97.6 ABG Base Excess -18.3 FiO2 ROOM AIR Sodium Potassium Chloride Carbon Dioxide Anion Gap BUN Creatinine Est GFR ( Amer) Glucose Lactic Acid Calcium Total Bilirubin AST Alkaline Phosphatase Ammonia 153.6 H Total Protein Albumin Lipase Urine Color KATIA Urine Appearance SLIGHTLY-CLOUDY Urine pH 5.0 Ur Specific [place] 1.013 Urine Protein 30 H Urine Glucose (UA) NEGATIVE Urine Ketones NEGATIVE Urine Blood SMALL H Urine Nitrite NEGATIVE Ur Leukocyte Esterase NEGATIVE Urine WBC (Auto) 16 Urine RBC (Auto) 12/15/19 12/15/19 08:11 08:11 WBC 16.1 H RBC 2.33 L Hgb 7.6 L Hct 21.5 L MCV 92 MCH 32.6 MCHC 35.4 RDW 14.5 H Plt Count 240 Seg Neutrophils % Not Reportable Carbonic Acid HCO3/H2CO3 Ratio ABG pH ABG pCO2 ABG pO2 ABG HCO3 ABG O2 Saturation ABG Base Excess FiO2 Sodium 141.8 Potassium 3.6 D Chloride 112 H Carbon Dioxide 8 L* Anion Gap 22 H BUN 185 H D Creatinine 12.29 H Est GFR ( Amer) 5 L Glucose 95 Lactic Acid Calcium 9.4 Total Bilirubin 4.9 H AST 29 Alkaline Phosphatase 426 H Ammonia Total Protein 6.8 Albumin 3.2 L Lipase Urine Color Urine Appearance Urine pH Ur Specific [place] Urine Protein Urine Glucose (UA) Urine Ketones Urine Blood Urine Nitrite Ur Leukocyte Esterase Urine WBC (Auto) Urine RBC (Auto) 12/14/19 12/14/19 14:24 14:24 Creatine Kinase 32 L Troponin I < 0.012 NT-Pro-B Natriuret Pep 1240 H Impressions: Abdomen/Pelvis CT 12/14/19 00:00 IMPRESSION: 1. Massively dilated stool-filled redundant sigmoid colon. Distention also extends to involve the descending colon. While sigmoid volvulus remains in the differential, it is felt to be less likely as a clear point of twisting or fixed obstruction is not identified. 2. Mild ascites. Chest X-Ray 12/14/19 15:01 IMPRESSION: Right basilar atelectasis Gaseous distention of bowel loops under the right and left hemidiaphragm KUB X-Ray 12/14/19 15:01 IMPRESSION: Marked urinary bladder distention Distended tortuous sigmoid colon worrisome for sigmoid volvulus Assessment and Plan - Diagnosis (1) Sepsis Qualifiers: Sepsis type: sepsis due to unspecified organism Sepsis acute organ dysfunction status: with acute organ dysfunction Severe sepsis acute organ dysfunction type: acute renal failure Acute renal failure type: unspecified Severe sepsis shock status: unspecified Qualified Code(s): A41.9 - Sepsis, unspecified organism; R65.20 - Severe sepsis without septic shock; N17.9 - Acute kidney failure, unspecified Is this a current diagnosis for this admission?: Yes Plan Summary: Impression: Sepsis from a bowel obstruction or bowel ischemia Acute renal failure secondary to above, improved Jaundiced secondary to above or possibly liver mets Plan: Aggressive of fluids to continue Increase RL for now but if acidosis does not continue to resolve change to a bicarb drip Agree with Nichole Repeat labs this afternoon and again in a.m. Critical Time Critical Time (minutes): 35 Level of Care: ICU -: 1. The care of a critical patient is a dynamic process. This note is a veterans contact representative synopsis but static in nature. The timeframe for treatments given in order is not necessarily the actual time these treatments may have been done. 2. This patient requires critical care secondary to ongoing requirements for therapy not offered or safe outside the critical care environment. Transfer to a lower level of care will result in altered life or limb morbidity and mortality. 3. Multidisciplinary rounds completed. 4. ABCDE bundle addressed.
[2019-12-15 14:13] LABS: MEAN CORPUSCULAR HGB CONC 35.6 g/dL (32.0-36.0); MEAN CORPUSCULAR VOLUME 93 fl (80-97); PLATELET COUNT 231 10^3/uL (150-450); RED BLOOD COUNT 2.26 10^6/uL (4.35-5.55); RED CELL DISTRIBUTION WIDTH 14.7 % (11.5-14.0); WHITE BLOOD COUNT 19.9 10^3/uL (4.0-10.5)
[2019-12-15 14:18] LABS: HEMOGLOBIN 7.5 g/dL (13.5-17.0)
[2019-12-15 14:24] LABS: ALKALINE PHOSPHATASE 387 U/L (38-126); ASPARTATE AMINO TRANSFERASE 32 U/L (17-59); BILIRUBIN,DIRECT 3.7 mg/dL (0.0-0.4); BILIRUBIN,TOTAL 4.7 mg/dL (0.2-1.3); CALCIUM 9.2 mg/dL (8.4-10.2); GLUCOSE 108 mg/dL (75-110); TOTAL PROTEIN 6.8 g/dL (6.3-8.2)
[2019-12-15 14:30] LABS: CHLORIDE 114 mmol/L (98-107)
[2019-12-15] MEDS ORDERED: BUPIVACAINE INJ/PF LIPOSOME/PF 266 MG/20 ML SDV ONE (14:32)
[2019-12-15] MEDS ORDERED: FENTANYL CITRATE INJ/PF 100 MCG/2 ML AMPUL ONE ×2 (14:35→22:35)
[2019-12-15] MEDS ORDERED: MIDAZOLAM 2 MG/2 ML INJ ONE (14:35)
[2019-12-15] MEDS ORDERED: FENTANYL CITRATE INJ/PF 250 MCG/5 ML AMPULE ONE (14:35)
[2019-12-15] MEDS ORDERED: EPHEDRINE SULFATE INJ 50 MG/1 ML AMPULE ONE (14:36)
[2019-12-15 14:38] LABS: ABSOLUTE MONOCYTES # (MANUAL) 1.2 10^3/uL (0.1-1.4); BAND NEUTROPHILS % (MANUAL) 4 % (3-5); BASOPHILS % (MANUAL) 0 % (0-2); EOSINOPHILS % (MANUAL) 0 % (0-6); LYMPHOCYTES % (MANUAL) 10 % (13-45); MONOCYTES % (MANUAL) 6 % (3-13); NUCLEATED RED BLOOD CELLS 4 /100 WBC (0); SEGMENTED NEUTROPHILS % (MAN) 80 % (42-78); TOTAL CELLS COUNTED 100
[2019-12-15 14:39] LABS: ANISOCYTOSIS SLIGHT; BURR CELLS 1+; PLATELET COMMENT ADEQUATE; POIKILOCYTOSIS 1+
[2019-12-15 14:40] LABS: SCHISTOCYTES SLIGHT
[2019-12-15 14:41] LABS: BLOOD UREA NITROGEN 174 mg/dL (7-20); POTASSIUM 3.1 mmol/L (3.6-5.0)
[2019-12-15 14:43] LABS: CARBON DIOXIDE 8 mmol/L (22-30)
[2019-12-15 14:44] LABS: ANION GAP 23 (5-19)
[2019-12-15 15:05] LABS: HEMATOCRIT 20.4 % (37.9-51.0); MEAN CORPUSCULAR HGB CONC 35.3 g/dL (32.0-36.0); MEAN CORPUSCULAR VOLUME 94 fl (80-97); PLATELET COUNT 224 10^3/uL (150-450); RED BLOOD COUNT 2.18 10^6/uL (4.35-5.55); RED CELL DISTRIBUTION WIDTH 14.4 % (11.5-14.0); WHITE BLOOD COUNT 19.6 10^3/uL (4.0-10.5)
[2019-12-15] MEDS ORDERED: SODIUM BICARBONATE 4.2% INJ (2.5 MEQ/5 ML) VIAL ONE (15:06)
[2019-12-15 15:07] LABS: HEMOGLOBIN 7.2 g/dL (13.5-17.0)
[2019-12-15] MEDS ORDERED: SODIUM BICARBONATE 8.4% INJ 50 MEQ/50 ML DISP.SYRIN ONE (15:07)
[2019-12-15] MEDS ORDERED: FENTANYL CITRATE INJ/PF 100 MCG/2 ML AMPUL IV PRN ×3 (16:24)
--- NOTE | 2019-12-15 17:02 | Operative Report ---
Operative Report DATE OF SURGERY: 12/15/19 PREOPERATIVE DIAGNOSIS: 1. Persisting metabolic acidosis. 2. Ischemic sigmoid colon POSTOPERATIVE DIAGNOSIS: Same with infarcting sigmoid colon OPERATION: 1. Left renal jugular central venous access catheter insertion. 2. Sporter laparotomy. 3. Sigmoid colectomy, Teague's pouch and left colostomy,. 4. Drainage of pelvis SURGEON: YULI CLAY ANESTHESIA: GA TISSUE REMOVED OR ALTERED: Sigmoid colon COMPLICATIONS: None ESTIMATED BLOOD LOSS: 75 cc INTRAOPERATIVE FINDINGS: See below PROCEDURE: The patient was taken emergently from the intensive care unit to the main operating room and general anesthesia was induced. Lynn catheter to been previously inserted. The left neck and left subclavian areas were prepped and draped in sterile fashion and using Seldinger technique, triple-lumen central venous access catheter was inserted into the left internal jugular vein. There was good flow through all 3 lm. Catheter was secured to the skin with 2-0 silk suture, sterile dressing applied. The abdomen was clipped of hair, prepped and draped in sterile fashion. Surgical plan and surgical timeout were conducted. The abdomen was opened through a standard midline incision above and below the umbilicus. Upon entering the peritoneal cavity, the distended sigmoid colon with ischemic changes was mobilized into the free peritoneal space. It was redundant, distended, and discolored, but did not actually require detorsion. Nonetheless it needed to be removed. There was no evidence of perforation. A suitable site for transection of the proximal sigmoid colon was chosen. A MARINA 55 stapler was fired across the sigmoid colon. The meso appendix of the sigmoid colon was taken down between clamps and 2-0 Vicryl and 0 Vicryl ties. A suitable site for transection of the rectosigmoid junction was chosen for transection. Another firing of the MARINA 55 stapler was accomplished thereby transecting the sigmoid colon. The specimen was passed off the table as sigmoid colon and sent to pathology for permanent analysis. Inspection of the Teague's pouch, rectal stump revealed staple line malfunction. Therefore Allis clamps were placed on the rectal stump staple line, and additional upper rectal mesocolon was taken down between clamps. We now brought onto the field a another firing of the MARINA 55 stapler and this to malfunction. Technically it was a reload of the previous stapler. After this malfunction, I elected to b ring onto the field a TA 60 stapler. Minimal additional mobilization of the rectal stump was required. We stated midline and there was never a question of our anatomic relationship between the ureters. The TA 60 stapler was successfully fired across the rectal stump, and the redundant taper line was excised with [place] scissors. The stump was allowed to retract into the pelvis and the pelvis packed We now irrigated the peritoneal cavity out several liters of warm saline. The nasogastric tube was confirmed to be in good position. We ran the entire bowel from the ligament of Treitz all the way to the ileum and there was no evidence of perforation ischemia or kinking of the small bowel. There were no adhesions or evidence of tumor. Strong pulses in the branches of the superior mesenteric artery. The right colon specifically the cecum and ascending colon were in good shape. The transverse colon was very redundant and actually ran up towards the lesser curvature of the stomach, then swept back down towards the spleen. The circulation appeared to be healthy and the bowel wall appeared viable. The descending colon was also well perfused. During this time the patient's blood pressure sagged transiently but then improved. He was not on sustained vasopressors during the case. After irrigated the peritoneal cavity out above and below the liver and spleen small and large bowel, we suctioned it out thoroughly. A large Shaun drain was placed in the left lower quadrant, with its trimmed and in the pelvis. We now mobilized the proximal sigmoid colon-left colon by opening up the white line of Toldt. This permitted nice free mobilization of the free end of the colon. A suitable site for a colostomy was chosen several centimeters lateral to the umbilicus. Skin subcutaneous tissue, fascia and muscle were all opened with electrocautery. The muscular fascial opening was made with a cruciate incision. The end left colon was brought up through the hole in the abdominal wall without tension. We carefully inspected the left mesocolon and there was no evidence of kinking. This point felt the operation was complete. Sponge and needle counts correct. Abdomen was closed with 2 running double-stranded #1 PDS sutures and skin approximated madelin with portions of gauze packed in between several madelin. The ostomy was matured by opening the staple line with electrocautery, the maturing the mucosa to the skin with multiple 4-0 Vicryl sutures. An ostomy appliance was applied. A honeycomb dressing was applied to the midline incision. Patient was taken to the ICU in guarded condition. Results dictating.
[2019-12-15] MEDS ORDERED: NORMAL SALINE INJ/PF 0.9% 10 ML SDV IV PRN (17:32)
--- NOTE | 2019-12-15 17:55 | RADIOLOGY REPORT (SQ) ---
EXAM DESCRIPTION: CHEST SINGLE VIEW IMAGES COMPLETED DATE/TIME: 12/15/2019 5:40 pm REASON FOR STUDY: Status post intubation and central line placement COMPARISON: AP chest 12/14/2019 EXAM PARAMETERS: NUMBER OF VIEWS: One view. TECHNIQUE: Single frontal radiographic view of the chest acquired. RADIATION DOSE: NA LIMITATIONS: None. FINDINGS: LUNGS AND PLEURA: No opacities, masses or pneumothorax. No pleural effusion. MEDIASTINUM AND HILAR STRUCTURES: No masses. Contour normal. HEART AND VASCULAR STRUCTURES: Heart normal in size. Normal vasculature. BONES: No acute findings. HARDWARE: Endotracheal tube tip midtrachea. Left jugular central line tip at the junction of the sup erior vena cava/ right atrium. Nasogastric tube tip and side port below the hemidiaphragms. OTHER: No other significant finding. IMPRESSION: No focal infiltrates. Tubes and lines in positioning. TECHNICAL DOCUMENTATION: JOB ID: [id number] 2010 [employer]- All Rights Reserved Reading location - IP/workstation name: [email or web address]
[2019-12-15] MEDS: NORMAL SALINE 1000 ML 1,000 ML IV SCH ×2 (20:34→21:33)
[2019-12-15 21:22] LABS: ARTERIAL BLOOD H2CO3 1.21 mmol/L (1.05-1.35); ARTERIAL BLOOD HCO3 16.7 mmol/L (20-24); ARTERIAL BLOOD O2 SATURATION 99.4 % (94-98); ARTERIAL BLOOD PCO2 40.2 mmHg (35-45); ARTERIAL BLOOD PH 7.24 (7.35-7.45); ARTERIAL BLOOD PO2 239.3 mmHg (80-100); ARTERIAL BLOOD TOTAL CO2 17.9 mmol/L (23-27)
[2019-12-15 21:23] LABS: ARTERIAL BLOOD FIO2 50%
[2019-12-15] MEDS ORDERED: DEXTROSE 5%-WATER 250 ML with NOREPINEPHRINE BITARTRATE 4 MG IV PRN ×2 (21:44)
[2019-12-15 22:01] LABS: ANION GAP 14 (5-19); CALCIUM 8.2 mg/dL (8.4-10.2); CARBON DIOXIDE 16 mmol/L (22-30); CHLORIDE 120 mmol/L (98-107); GLUCOSE 111 mg/dL (75-110); PHOSPHORUS 6.7 mg/dL (2.5-4.5); POTASSIUM 3.3 mmol/L (3.6-5.0)
[2019-12-15] MEDS ORDERED: NOREPINEPHRINE BITARTRATE INJ/PF 4 MG/4 ML SDV IV ONE (22:11)
[2019-12-15] MEDS ORDERED: FENTANYL CITRATE INJ/PF 100 MCG/2 ML AMPUL IV ONE (22:21)
[2019-12-15] MEDS ORDERED: HYDROMORPHONE HCL INJ/PF 2 MG/ML AMPULE IV ONE (23:52)
[2019-12-16] MEDS: POTASSI CL 20 MEQ/D5-1/2NS 1L 1,000 ML IV PRN ×2 (00:02→13:56)
[2019-12-16] MEDS ORDERED: DEXMEDETOMIDINE IN 0.9 % NACL 400 MCG/100 ML RTUPB IV PRN (02:43)
[2019-12-16] MEDS ORDERED: DEXTROSE 40% GEL 15 GM TUBE PO PRN ×2 (02:44)
[2019-12-16] MEDS ORDERED: DEXTROSE 50%-WATER 25 GM/50 ML DISP.SYRIN IV PRN (02:44)
[2019-12-16] MEDS ORDERED: GLUCAGON,HUMAN RECOMB 1 MG INJ IM PRN (02:44)
[2019-12-16 04:46] LABS: HEMATOCRIT 26.8 % (37.9-51.0); MEAN CORPUSCULAR HGB CONC 34.6 g/dL (32.0-36.0); PLATELET COUNT 172 10^3/uL (150-450); RED BLOOD COUNT 3.09 10^6/uL (4.35-5.55); WHITE BLOOD COUNT 24.4 10^3/uL (4.0-10.5)
[2019-12-16 05:01] LABS: ARTERIAL BLOOD BASE EXCESS -5.7 mmol/L; ARTERIAL BLOOD FIO2 21%; ARTERIAL BLOOD H2CO3 0.65 mmol/L (1.05-1.35); ARTERIAL BLOOD HCO3 16.2 mmol/L (20-24); ARTERIAL BLOOD O2 SATURATION 98.5 % (94-98); ARTERIAL BLOOD PCO2 21.5 mmHg (35-45); ARTERIAL BLOOD PH 7.49 (7.35-7.45); ARTERIAL BLOOD PO2 112.2 mmHg (80-100); ARTERIAL BLOOD TOTAL CO2 16.8 mmol/L (23-27)
[2019-12-16 05:02] LABS: ALBUMIN 2.5 g/dL (3.5-5.0); ALKALINE PHOSPHATASE 292 U/L (38-126); ANION GAP 11 (5-19); ASPARTATE AMINO TRANSFERASE 33 U/L (17-59); BILIRUBIN,DIRECT 2.6 mg/dL (0.0-0.4); BILIRUBIN,TOTAL 4.1 mg/dL (0.2-1.3); CALCIUM 8.6 mg/dL (8.4-10.2); CARBON DIOXIDE 15 mmol/L (22-30); CHLORIDE 125 mmol/L (98-107); GLUCOSE 131 mg/dL (75-110); TOTAL PROTEIN 5.8 g/dL (6.3-8.2)
[2019-12-16 05:11] LABS: BLOOD UREA NITROGEN 123 mg/dL (7-20)
[2019-12-16 05:13] LABS: POTASSIUM 2.9 mmol/L (3.6-5.0)
[2019-12-16] MEDS ORDERED: POTASSI CL 20 MEQ/50 ML RIDER 20 MEQ/50 ML RTUPB IV ONE (05:17)
[2019-12-16] MEDS: PIPERACILLIN SODIUM/TAZOBACTAM 2.25 GM in NORMAL SALINE 50 ML IV SCH (05:28)
[2019-12-16 05:38] LABS: ABSOLUTE LYMPHOCYTES# (MANUAL) 1.2 10^3/uL (0.5-4.7); ABSOLUTE MONOCYTES # (MANUAL) 0.7 10^3/uL (0.1-1.4); BAND NEUTROPHILS % (MANUAL) 6 % (3-5); BASOPHILS % (MANUAL) 0 % (0-2); EOSINOPHILS % (MANUAL) 0 % (0-6); LYMPHOCYTES % (MANUAL) 5 % (13-45); MONOCYTES % (MANUAL) 3 % (3-13); SEGMENTED NEUTROPHILS % (MAN) 86 % (42-78); TOTAL CELLS COUNTED 100
[2019-12-16 05:39] LABS: ANISOCYTOSIS 2+; BURR CELLS 2+; PLATELET COMMENT ADEQUATE; POIKILOCYTOSIS 2+; POLYCHROMASIA 1+
[2019-12-16 05:45] LABS: HEMOGLOBIN 9.3 g/dL (13.5-17.0)
[2019-12-16 05:46] LABS: MEAN CORPUSCULAR VOLUME 87 fl (80-97)
[2019-12-16] MEDS: INSULIN REG, HUMAN 100 UNIT/ML 3 ML VIAL (PYX) SUBCUT SCH ×4 (06:31→23:57)
[2019-12-16 06:42] LABS: BLOOD UREA NITROGEN 136 mg/dL (7-20)
[2019-12-16] MEDS ORDERED: ENOXAPARIN SODIUM INJ 30 MG/0.3 ML DISP.SYRIN SUBCUT SCH (10:00)
[2019-12-16] MEDS ORDERED: RINGERS SOLUTION,LACTATED 1,000 ML IV ONE ×2 (10:10→10:11)
--- NOTE | 2019-12-16 11:12 | CDI QUERY ---
CDI Query CDI Review: Dear Provider, PLEASE DOCUMENT IN PROGRESS NOTES AND DISCHARGE SUMMARY IF YOU AGREE WITH THE CLINICAL FINDINGS: ACUTE TUBULAR NECROSIS WITH ARF, IMPROVING? PT HAS ACUTE RENAL FAILURE ONLY? OTHER? CLINICAL INDICATORS: CREATININE / BUN 22.36 / 217... LABS IMPROVING CAST 1
[2019-12-16] MEDS: MEROPENEM 1 GM in NORMAL SALINE 50 ML IV SCH (11:31)
--- NOTE | 2019-12-16 11:35 | RADIOLOGY REPORT (SQ) ---
EXAM DESCRIPTION: CHEST SINGLE VIEW IMAGES COMPLETED DATE/TIME: 12/16/2019 9:38 am REASON FOR STUDY: sepsis COMPARISON: Previous day NUMBER OF VIEWS: One view. TECHNIQUE: Single frontal radiographic image of the chest acquired. LIMITATIONS: None. FINDINGS: LUNGS AND PLEURA: No infiltrate or pneumothorax. MEDIASTINUM AND HEART: Stable heart size and mediastinal structures. SUPPORT DEVICES: Unchanged position of left central line and nasogastric tube. Interval removal of e ndotracheal tube. BONY STRUCTURES: No acute findings. HARDWARE: None. OTHER: No other significant finding. IMPRESSION: Stable chest status post extubation. Reading location - IP/workstation name: [email or web address]
--- NOTE | 2019-12-16 11:38 | PDOC PROGRESS REPORT ---
Subjective Progress Note for:: 12/16/19 Reason For Visit: BOWEL OBSTRUCTION Physical Exam Vital Signs: Temp Pulse Resp BP Pulse Ox 100.6 F H 127 H 15 151/65 H 100 12/16/19 01:44 12/16/19 08:15 12/16/19 08:15 12/16/19 08:15 12/16/19 08:15 Intake & Output 12/15/19 12/16/19 12/17/19 06:59 06:59 06:59 Intake Total 3040 8416 112 Output Total 3144 8660 425 Balance -105 -244 -313 Weight 55.9 kg 58.2 kg Results Laboratory Results: 12/16/19 04:19 12/16/19 04:05 12/15/19 12/15/19 12/15/19 13:58 13:58 14:45 WBC 19.9 H 19.6 H RBC 2.26 L 2.18 L Hgb 7.5 L 7.2 L Hct 21.0 L 20.4 L MCV 93 94 MCH 33.0 33.0 MCHC 35.6 35.3 RDW 14.7 H 14.4 H Plt Count 231 224 Seg Neutrophils % Not Reportable Carbonic Acid HCO3/H2CO3 Ratio ABG pH ABG pCO2 ABG pO2 ABG HCO3 ABG O2 Saturation ABG Base Excess FiO2 Sodium 144.5 Potassium 3.1 L Chloride 114 H Carbon Dioxide 8 L* Anion Gap 23 H BUN 174 H Creatinine 9.86 H Est GFR ( Amer) 6 L Glucose 108 Lactic Acid Calcium 9.2 Phosphorus Magnesium Total Bilirubin 4.7 H AST 32 Alkaline Phosphatase 387 H Ammonia Total Protein 6.8 Albumin 3.0 L Blood Type Antibody Screen 12/15/19 12/15/19 12/15/19 14:45 21:10 21:30 WBC RBC Hgb Hct MCV MCH MCHC RDW Plt Count Seg Neutrophils % Carbonic Acid 1.21 HCO3/H2CO3 Ratio 13:1 ABG pH 7.24 L ABG pCO2 40.2 ABG pO2 239.3 H ABG HCO3 16.7 L ABG O2 Saturation 99.4 H ABG Base Excess -10.0 FiO2 50% Sodium 149.9 H Potassium 3.3 L Chloride 120 H Carbon Dioxide 16 L Anion Gap 14 BUN 136 H D Creatinine 6.62 H Est GFR ( Amer) 10 L Glucose 111 H Lactic Acid Calcium 8.2 L Phosphorus 6.7 H Magnesium 1.8 Total Bilirubin AST Alkaline Phosphatase Ammonia Total Protein Albumin Blood Type B POSITIVE Antibody Screen NEGATIVE 12/15/19 12/16/19 12/16/19 22:10 04:05 04:05 WBC RBC Hgb Hct MCV MCH MCHC RDW Plt Count Seg Neutrophils % Carbonic Acid 0.65 L HCO3/H2CO3 Ratio 24:1 ABG pH 7.49 H ABG pCO2 21.5 L ABG pO2 112.2 H ABG HCO3 16.2 L ABG O2 Saturation 98.5 H ABG Base Excess -5.7 FiO2 21% Sodium Potassium Chloride Carbon Dioxide Anion Gap BUN Creatinine Est GFR ( Amer) Glucose Lactic Acid 1.9 Calcium Phosphorus Magnesium Total Bilirubin AST Alkaline Phosphatase Ammonia 14.9 Total Protein Albumin Blood Type Antibody Screen 12/16/19 12/16/19 12/16/19 04:05 04:05 04:19 WBC 24.4 H RBC 3.09 L Hgb 9.3 L D Hct 26.8 L MCV 87 D MCH 30.0 MCHC 34.6 RDW 19.0 H Plt Count 172 Seg Neutrophils % Not Reportable Carbonic Acid HCO3/H2CO3 Ratio ABG pH ABG pCO2 ABG pO2 ABG HCO3 ABG O2 Saturation ABG Base Excess FiO2 Sodium 151.2 H Potassium 2.9 L* Chloride 125 H Carbon Dioxide 15 L Anion Gap 11 BUN 123 H Creatinine 5.10 H Est GFR ( Amer) 14 L Glucose 131 H Lactic Acid 1.7 Calcium 8.6 Phosphorus Magnesium Total Bilirubin 4.1 H AST 33 Alkaline Phosphatase 292 H Ammonia Total Protein 5.8 L Albumin 2.5 L Blood Type Antibody Screen 12/14/19 12/14/19 14:24 14:24 Creatine Kinase 32 L Troponin I < 0.012 NT-Pro-B Natriuret Pep 1240 H Impressions: Abdomen/Pelvis CT 12/14/19 00:00 IMPRESSION: 1. Massively dilated stool-filled redundant sigmoid colon. Distention also extends to involve the descending colon. While sigmoid volvulus remains in the differential, it is felt to be less likely as a clear point of twisting or fixed obstruction is not identified. 2. Mild ascites. KUB X-Ray 12/14/19 15:01 IMPRESSION: Marked urinary bladder distention Distended tortuous sigmoid colon worrisome for sigmoid volvulus Assessment & Plan - Diagnosis (1) Sigmoid volvulus Is this a current diagnosis for this admission?: Yes - Plan Summary Plan Summary: This is a 69-year-old male status post Teague's procedure with sigmoidectomy due to mesenteric ischemia, likely related to a sigmoid volvulus. The patient is extubated, but he is still somewhat somnolent. He is still mildly tachycardic. His last recorded CVP is 4. His map is maintaining approximately 65-68. His left lower quadrant colostomy is pink and slightly edematous. It is not productive at this time. Patient's urine output is adequate, however his urine appears concentrated. He has been off vasopressors since early this morning. His BUN and creatinine are still elevated, but improving. 2 L lactated Ringer bolus today, suspect the patient is still hypovolemic. I discussed the case with Dr. Reed, who is providing medical/molder automobile carpets care for the patient. Surgery will continue to follow this patient very closely with you.
[2019-12-16] MEDS ORDERED: RINGERS SOLUTION,LACTATED 2,000 ML IV ONE (12:00)
[2019-12-16] MEDS: POTASSI CL 20 MEQ/50 ML RIDER 20 MEQ/50 ML RTUPB IV SCH ×3 (12:07→15:50)
--- NOTE | 2019-12-16 12:20 | PDOC CRITICAL CARE PROG REPORT ---
General Date:: 12/16/19 ICU Day:: 2 Hospital Day:: 2 Resuscitation Status: Full Code Events in the past 12 to 24 Hours:: Surgery and extubation. Review of systems relevant to events:: Neurological, GI, CV. Reason for ICU Addmission:: Intubated and on pressors post-op. - Medications: Medications reviewed and adjusted accordingly: Yes Vasopressors:: None Sedation:: None Physical Exam Vital Signs: Temp Pulse Resp BP Pulse Ox 100.6 F H 127 H 14 151/65 H 100 12/16/19 01:44 12/16/19 08:15 12/16/19 11:45 12/16/19 08:15 12/16/19 11:45 Intake & Output 12/15/19 12/16/19 12/17/19 06:59 06:59 06:59 Intake Total 3040 8416 112 Output Total 3145 8660 425 Balance -105 -244 -313 Weight 55.9 kg 58.2 kg Weight/Height Weight 58.2 kg Height 5 ft 6 in General appearance: PRESENT: no acute distress, thin, well-developed, well- nourished Head exam: PRESENT: atraumatic, normocephalic Eye exam: PRESENT: conjunctiva pink, EOMI, PERRLA. ABSENT: scleral icterus Ear exam: PRESENT: normal external ear exam Mouth exam: PRESENT: dry mucosa Respiratory exam: PRESENT: clear to auscultation aldair, decreased breath sounds. ABSENT: rales, rhonchi, wheezes Cardiovascular exam: PRESENT: tachycardia GI/Abdominal exam: PRESENT: normal bowel sounds, soft, other - Incision very clean. Secodary intention.. ABSENT: distended, guarding, mass, organolmegaly, rebound, tenderness Rectal exam: PRESENT: deferred Gentrourinary exam: PRESENT: indwelling catheter Extremities exam: PRESENT: full ROM. ABSENT: calf tenderness, clubbing, pedal edema Neurological exam: PRESENT: altered Skin exam: PRESENT: dry, intact, warm. ABSENT: cyanosis, rash Tubes/Lines: PRESENT: Central Line Laboratory/Radiographs Laboratory Results: 12/16/19 04:19 12/16/19 04:05 12/15/19 12/15/19 12/15/19 13:58 13:58 14:45 WBC 19.9 H 19.6 H RBC 2.26 L 2.18 L Hgb 7.5 L 7.2 L Hct 21.0 L 20.4 L MCV 93 94 MCH 33.0 33.0 MCHC 35.6 35.3 RDW 14.7 H 14.4 H Plt Count 231 224 Seg Neutrophils % Not Reportable Carbonic Acid HCO3/H2CO3 Ratio ABG pH ABG pCO2 ABG pO2 ABG HCO3 ABG O2 Saturation ABG Base Excess FiO2 Sodium 144.5 Potassium 3.1 L Chloride 114 H Carbon Dioxide 8 L* Anion Gap 23 H BUN 174 H Creatinine 9.86 H Est GFR ( Amer) 6 L Glucose 108 Lactic Acid Calcium 9.2 Phosphorus Magnesium Total Bilirubin 4.7 H AST 32 Alkaline Phosphatase 387 H Ammonia Total Protein 6.8 Albumin 3.0 L Blood Type Antibody Screen 12/15/19 12/15/19 12/15/19 14:45 21:10 21:30 WBC RBC Hgb Hct MCV MCH MCHC RDW Plt Count Seg Neutrophils % Carbonic Acid 1.21 HCO3/H2CO3 Ratio 13:1 ABG pH 7.24 L ABG pCO2 40.2 ABG pO2 239.3 H ABG HCO3 16.7 L ABG O2 Saturation 99.4 H ABG Base Excess -10.0 FiO2 50% Sodium 149.9 H Potassium 3.3 L Chloride 120 H Carbon Dioxide 16 L Anion Gap 14 BUN 136 H D Creatinine 6.62 H Est GFR ( Amer) 10 L Glucose 111 H Lactic Acid Calcium 8.2 L Phosphorus 6.7 H Magnesium 1.8 Total Bilirubin AST Alkaline Phosphatase Ammonia Total Protein Albumin Blood Type B POSITIVE Antibody Screen NEGATIVE 12/15/19 12/16/19 12/16/19 22:10 04:05 04:05 WBC RBC Hgb Hct MCV MCH MCHC RDW Plt Count Seg Neutrophils % Carbonic Acid 0.65 L HCO3/H2CO3 Ratio 24:1 ABG pH 7.49 H ABG pCO2 21.5 L ABG pO2 112.2 H ABG HCO3 16.2 L ABG O2 Saturation 98.5 H ABG Base Excess -5.7 FiO2 21% Sodium Potassium Chloride Carbon Dioxide Anion Gap BUN Creatinine Est GFR ( Amer) Glucose Lactic Acid 1.9 Calcium Phosphorus Magnesium Total Bilirubin AST Alkaline Phosphatase Ammonia 14.9 Total Protein Albumin Blood Type Antibody Screen 12/16/19 12/16/19 12/16/19 04:05 04:05 04:19 WBC 24.4 H RBC 3.09 L Hgb 9.3 L D Hct 26.8 L MCV 87 D MCH 30.0 MCHC 34.6 RDW 19.0 H Plt Count 172 Seg Neutrophils % Not Reportable Carbonic Acid HCO3/H2CO3 Ratio ABG pH ABG pCO2 ABG pO2 ABG HCO3 ABG O2 Saturation ABG Base Excess FiO2 Sodium 151.2 H Potassium 2.9 L* Chloride 125 H Carbon Dioxide 15 L Anion Gap 11 BUN 123 H Creatinine 5.10 H Est GFR ( Amer) 14 L Glucose 131 H Lactic Acid 1.7 Calcium 8.6 Phosphorus Magnesium Total Bilirubin 4.1 H AST 33 Alkaline Phosphatase 292 H Ammonia Total Protein 5.8 L Albumin 2.5 L Blood Type Antibody Screen 12/14/19 12/14/19 14:24 14:24 Creatine Kinase 32 L Troponin I < 0.012 NT-Pro-B Natriuret Pep 1240 H Impressions: Abdomen/Pelvis CT 12/14/19 00:00 IMPRESSION: 1. Massively dilated stool-filled redundant sigmoid colon. Distention also extends to involve the descending colon. While sigmoid volvulus remains in the differential, it is felt to be less likely as a clear point of twisting or fixed obstruction is not identified. 2. Mild ascites. KUB X-Ray 12/14/19 15:01 IMPRESSION: Marked urinary bladder distention Distended tortuous sigmoid colon worrisome for sigmoid volvulus Chest X-Ray 12/16/19 04:51 IMPRESSION: Stable chest status post extubation. All labs, radiographs, diagnostic studies and EKGs were personally reviewed: Yes In addition, reports of radiographic and diagnostic studies were read: Yes Assessment and Plan - Diagnosis (1) Acute renal failure (ARF) Qualifiers: Acute renal failure type: with acute tubular necrosis Qualified Code(s): N17.0 - Acute kidney failure with tubular necrosis Is this a current diagnosis for this admission?: Yes Plan: Cant tell with certainty but ATN is a good probability. (2) Jaundice Is this a current diagnosis for this admission?: Yes Plan: Likely a stress response from sepsis. (3) Sepsis Qualifiers: Sepsis type: sepsis due to unspecified organism Sepsis acute organ dysfunction status: with acute organ dysfunction Severe sepsis acute organ dysfunction type: acute renal failure Acute renal failure type: unspecified Severe sepsis shock status: unspecified Qualified Code(s): A41.9 - Sepsis, unspecified organism; R65.20 - Severe sepsis without septic shock; N17.9 - Acute kidney failure, unspecified Is this a current diagnosis for this admission?: Yes Plan: Probably due to bacterial translocation. Resolved with surgery. No definite organisms yet. (4) Sigmoid volvulus Is this a current diagnosis for this admission?: Yes Plan: Resolved with surgery. (5) Hypokalemia Is this a current diagnosis for this admission?: Yes Plan: Level of 2.9 with some PVCs. Even with BUN/CR he needs some potassium with uatsdin of PVCs. Plan Summary: Keep in ICU for potassium replacement, improvement of mental status. CV status. Critical Time Critical Time (minutes): 35 Level of Care: ICU Anticipated discharge: SNF Within: Other -: 1. The care of a critical patient is a dynamic process. This note is a retail account representative synopsis but static in nature. The timeframe for treatments given in order is not necessarily the actual time these treatments may have been done. 2. This patient requires critical care secondary to ongoing requirements for therapy not offered or safe outside the critical care environment. Transfer to a lower level of care will result in altered life or limb morbidity and mortality. 3. Multidisciplinary rounds completed. 4. ABCDE bundle addressed.
[2019-12-16 15:57] LABS: ANION GAP 9 (5-19); CALCIUM 7.9 mg/dL (8.4-10.2); CARBON DIOXIDE 18 mmol/L (22-30); CHLORIDE 128 mmol/L (98-107); GLUCOSE 157 mg/dL (75-110); POTASSIUM 3.1 mmol/L (3.6-5.0)
[2019-12-16 16:11] LABS: BLOOD UREA NITROGEN 92 mg/dL (7-20)
[2019-12-16] MEDS: ACETAMINOPHEN 1,000 MG/100 ML RTUPB IV SCH (21:25)
[2019-12-16] MEDS ORDERED: FENTANYL CITRATE INJ/PF 100 MCG/2 ML AMPUL IV ONE (21:30)
[2019-12-17] MEDS ORDERED: ACETAMINOPHEN 1,000 MG/100 ML RTUPB IV ONE (00:53)
[2019-12-17] MEDS: POTASSI CL 20 MEQ/D5-1/2NS 1L 1,000 ML IV PRN (03:20)
[2019-12-17 03:43] LABS: HEMATOCRIT 23.9 % (37.9-51.0); HEMOGLOBIN 8.3 g/dL (13.5-17.0); MEAN CORPUSCULAR HEMOGLOBIN 29.4 pg (27.0-33.4); MEAN CORPUSCULAR HGB CONC 34.6 g/dL (32.0-36.0); MEAN CORPUSCULAR VOLUME 85 fl (80-97); PLATELET COUNT 131 10^3/uL (150-450); RED BLOOD COUNT 2.81 10^6/uL (4.35-5.55); RED CELL DISTRIBUTION WIDTH 20.4 % (11.5-14.0)
[2019-12-17 03:50] LABS: ANION GAP 7 (5-19); BLOOD UREA NITROGEN 77 mg/dL (7-20); CALCIUM 8.2 mg/dL (8.4-10.2); CARBON DIOXIDE 21 mmol/L (22-30); CHLORIDE 131 mmol/L (98-107); GLUCOSE 142 mg/dL (75-110)
[2019-12-17 04:12] LABS: POTASSIUM 2.9 mmol/L (3.6-5.0)
[2019-12-17 04:17] LABS: ABSOLUTE LYMPHOCYTES# (MANUAL) 3.6 10^3/uL (0.5-4.7); ABSOLUTE MONOCYTES # (MANUAL) 0.7 10^3/uL (0.1-1.4); BASOPHILS % (MANUAL) 0 % (0-2); EOSINOPHILS % (MANUAL) 0 % (0-6); LYMPHOCYTES % (MANUAL) 10 % (13-45); MONOCYTES % (MANUAL) 2 % (3-13); NUCLEATED RED BLOOD CELLS 3 /100 WBC (0); SEGMENTED NEUTROPHILS % (MAN) 87 % (42-78); TOTAL CELLS COUNTED 100
[2019-12-17 04:18] LABS: ANISOCYTOSIS 2+; PLATELET COMMENT DECREASED
[2019-12-17 04:21] LABS: OVALOCYTES SLIGHT; SCHISTOCYTES SLIGHT
[2019-12-17 04:22] LABS: POIKILOCYTOSIS 1+; POLYCHROMASIA SLIGHT; TARGET CELLS SLIGHT
[2019-12-17] MEDS ORDERED: POTASSIUM CHLORIDE 20 MEQ PACKET NG ONE (04:22)
[2019-12-17 04:23] LABS: WHITE BLOOD COUNT 32.9 10^3/uL (4.0-10.5)
[2019-12-17] MEDS: DEXTROSE 5%-WATER 1000 ML 1,000 ML IV PRN (04:35)
[2019-12-17] MEDS: ACETAMINOPHEN 1,000 MG/100 ML RTUPB IV SCH (06:22)
[2019-12-17] MEDS: INSULIN REG, HUMAN 100 UNIT/ML 3 ML VIAL (PYX) SUBCUT SCH ×4 (06:29→23:21)
--- NOTE | 2019-12-17 07:50 | PDOC PROGRESS REPORT ---
Subjective Progress Note for:: 12/17/19 Subjective:: awake, responsive, extubated Reason For Visit: BOWEL OBSTRUCTION Physical Exam Vital Signs: Temp Pulse Resp BP Pulse Ox 100.6 F H 100 20 147/69 H 100 12/16/19 01:44 12/16/19 19:00 12/17/19 06:00 12/17/19 05:26 12/17/19 06:00 Intake & Output 12/16/19 12/17/19 12/18/19 06:59 06:59 06:59 Intake Total 8416 4656 Output Total 8660 3810 Balance -244 846 Weight 58.2 kg 58 kg General appearance: PRESENT: no acute distress Head exam: PRESENT: normocephalic Eye exam: PRESENT: EOMI Ear exam: PRESENT: normal external ear exam Mouth exam: PRESENT: dry mucosa Teeth exam: PRESENT: poor dentation Neck exam: PRESENT: full ROM Respiratory exam: PRESENT: clear to auscultation aldair Cardiovascular exam: PRESENT: RRR Pulses: PRESENT: normal radial pulses, normal femoral pulses GI/Abdominal exam: PRESENT: soft - stoma sl swollen, pink, no flatus Rectal exam: PRESENT: deferred Gentrourinary exam: PRESENT: indwelling catheter Extremities exam: PRESENT: full ROM Musculoskeletal exam: PRESENT: full ROM Neurological exam: PRESENT: alert, awake Psychiatric exam: PRESENT: appropriate affect Skin exam: PRESENT: dry Results Laboratory Results: 12/17/19 03:28 12/17/19 03:28 12/16/19 12/17/19 12/17/19 15:15 03:28 03:28 WBC 32.9 H* RBC 2.81 L Hgb 8.3 L Hct 23.9 L MCV 85 MCH 29.4 MCHC 34.6 RDW 20.4 H Plt Count 131 L Seg Neutrophils % Not Reportable Sodium 154.5 H 159.4 H Potassium 3.1 L 2.9 L* Chloride 128 H 131 H Carbon Dioxide 18 L 21 L Anion Gap 9 7 BUN 92 H D 77 H Creatinine 2.90 H 1.77 H Est GFR ( Amer) 26 L 46 L Glucose 157 H 142 H Calcium 7.9 L 8.2 L 12/14/19 12/14/19 14:24 14:24 Creatine Kinase 32 L Troponin I < 0.012 NT-Pro-B Natriuret Pep 1240 H Impressions: Abdomen/Pelvis CT 12/14/19 00:00 IMPRESSION: 1. Massively dilated stool-filled redundant sigmoid colon. Distention also extends to involve the descending colon. While sigmoid volvulus remains in the differential, it is felt to be less likely as a clear point of twisting or fixed obstruction is not identified. 2. Mild ascites. KUB X-Ray 12/14/19 15:01 IMPRESSION: Marked urinary bladder distention Distended tortuous sigmoid colon worrisome for sigmoid volvulus Chest X-Ray 12/16/19 04:51 IMPRESSION: Stable chest status post extubation. Assessment & Plan - Plan Summary Plan Summary: pt now extubated, stable cxr from yesterday reviewd wbc thisam 32k creat downto 2.9 abd soft, stoma pink ng bilious 300cc yesterday impression, s/p sigmoid volvolus, sever dehydration nowdoing better after resection plan dc art line. out of bed, cont ng today. physical therapy.
[2019-12-17 09:44] LABS: PATH REVIEW PATHOLOGIST REVIEWED
[2019-12-17] MEDS: MEROPENEM 1 GM in NORMAL SALINE 50 ML IV SCH (10:07)
[2019-12-17 17:10] LABS: ANION GAP 6 (5-19); BLOOD UREA NITROGEN 62 mg/dL (7-20); CARBON DIOXIDE 23 mmol/L (22-30); CHLORIDE 129 mmol/L (98-107); GLUCOSE 130 mg/dL (75-110)
[2019-12-17 17:15] LABS: POTASSIUM 2.8 mmol/L (3.6-5.0)
[2019-12-17] MEDS: POTASSI CL 20 MEQ/50 ML RIDER 20 MEQ/50 ML RTUPB IV SCH ×4 (17:59→23:17)
[2019-12-18] MEDS: DEXTROSE 5%-WATER 1000 ML 1,000 ML IV PRN ×2 (00:46→20:50)
[2019-12-18 03:22] LABS: HEMATOCRIT 22.9 % (37.9-51.0); MEAN CORPUSCULAR HEMOGLOBIN 29.1 pg (27.0-33.4); MEAN CORPUSCULAR HGB CONC 34.2 g/dL (32.0-36.0); MEAN CORPUSCULAR VOLUME 85 fl (80-97); PLATELET COUNT 107 10^3/uL (150-450); RED BLOOD COUNT 2.69 10^6/uL (4.35-5.55); RED CELL DISTRIBUTION WIDTH 19.9 % (11.5-14.0)
[2019-12-18 03:36] LABS: BLOOD UREA NITROGEN 52 mg/dL (7-20); CALCIUM 8.3 mg/dL (8.4-10.2); CHLORIDE 132 mmol/L (98-107); GLUCOSE 120 mg/dL (75-110); POTASSIUM 3.5 mmol/L (3.6-5.0)
[2019-12-18 03:41] LABS: CARBON DIOXIDE 26 mmol/L (22-30)
[2019-12-18 03:53] LABS: ANION GAP 3 (5-19)
[2019-12-18 04:08] LABS: ABSOLUTE LYMPHOCYTES# (MANUAL) 1.5 10^3/uL (0.5-4.7); ABSOLUTE MONOCYTES # (MANUAL) 1.5 10^3/uL (0.1-1.4); BASOPHILS % (MANUAL) 0 % (0-2); EOSINOPHILS % (MANUAL) 0 % (0-6); LYMPHOCYTES % (MANUAL) 5 % (13-45); MONOCYTES % (MANUAL) 5 % (3-13); NUCLEATED RED BLOOD CELLS 3 /100 WBC (0); POIKILOCYTOSIS SLIGHT; POLYCHROMASIA SLIGHT; SEGMENTED NEUTROPHILS % (MAN) 90 % (42-78); TOTAL CELLS COUNTED 100; TOXIC GRANULATION 1+
[2019-12-18 04:09] LABS: ANISOCYTOSIS 2+; BURR CELLS SLIGHT; OVALOCYTES SLIGHT; PLATELET COMMENT DECREASED; SCHISTOCYTES SLIGHT
[2019-12-18 04:10] LABS: WHITE BLOOD COUNT 30.7 10^3/uL (4.0-10.5)
[2019-12-18 04:11] LABS: HEMOGLOBIN 7.8 g/dL (13.5-17.0)
[2019-12-18] MEDS: INSULIN REG, HUMAN 100 UNIT/ML 3 ML VIAL (PYX) SUBCUT SCH ×3 (06:24→18:11)
[2019-12-18] MEDS: MAGNESIUM SULFATE/D5W 1 GM/100 ML RTUPB IV SCH ×3 (06:27→08:45)
[2019-12-18] MEDS ORDERED: DEXTROSE 5% IV ONE ×3 (07:00→08:00)
[2019-12-18] MEDS ORDERED: WATER IV ONE ×3 (07:00→08:00)
[2019-12-18] MEDS ORDERED: POTASSIUM PHOS M BASIC D BASIC IV ONE ×3 (07:00→08:00)
[2019-12-18] MEDS: MEROPENEM 1 GM in NORMAL SALINE 50 ML IV SCH ×2 (09:00→21:13)
--- NOTE | 2019-12-18 10:53 | PDOC CRITICAL CARE PROG REPORT ---
General Date:: 12/18/19 ICU Day:: 3 Hospital Day:: 3 Resuscitation Status: Full Code Events in the past 12 to 24 Hours:: Doing well post op. Needs to mobilize more. Review of systems relevant to events:: GI Reason for ICU Addmission:: High WBC. Need to mobilize. OK to downgrade. - Medications: Medications reviewed and adjusted accordingly: Yes Vasopressors:: None Sedation:: None Physical Exam Vital Signs: Temp Pulse Resp BP Pulse Ox 100.6 F H 105 H 12 122/89 H 100 12/16/19 01:44 12/18/19 07:00 12/18/19 06:15 12/18/19 05:46 12/18/19 06:15 Intake & Output 12/17/19 12/18/19 12/19/19 06:59 06:59 06:59 Intake Total 4656 1344 200 Output Total 3810 5500 100 Balance 846 -4156 100 Weight 58 kg 55.9 kg Weight/Height Weight 55.9 kg Height 5 ft 6 in General appearance: PRESENT: no acute distress, well-developed, well-nourished Head exam: PRESENT: atraumatic, normocephalic Eye exam: PRESENT: conjunctiva pink, EOMI, PERRLA. ABSENT: scleral icterus Mouth exam: PRESENT: moist, tongue midline Respiratory exam: PRESENT: clear to auscultation aldair. ABSENT: rales, rhonchi, wheezes Cardiovascular exam: PRESENT: RRR, tachycardia. ABSENT: diastolic murmur, rubs, systolic murmur GI/Abdominal exam: PRESENT: normal bowel sounds, soft. ABSENT: distended, guarding, mass, organolmegaly, rebound, tenderness Rectal exam: PRESENT: deferred Extremities exam: PRESENT: full ROM. ABSENT: calf tenderness, clubbing, pedal edema Neurological exam: PRESENT: alert, awake, oriented to person, oriented to place, oriented to time, oriented to situation, CN II-XII grossly intact. ABSENT: motor sensory deficit Skin exam: PRESENT: dry, intact, warm. ABSENT: cyanosis, rash Laboratory/Radiographs Laboratory Results: 12/18/19 03:10 12/18/19 03:10 12/17/19 12/18/19 12/18/19 16:44 03:10 03:10 WBC 30.7 H* RBC 2.69 L Hgb 7.8 L Hct 22.9 L MCV 85 MCH 29.1 MCHC 34.2 RDW 19.9 H Plt Count 107 L Seg Neutrophils % Not Reportable Sodium 158.1 H 160.5 H Potassium 2.8 L* 3.5 L Chloride 129 H 132 H Carbon Dioxide 23 26 Anion Gap 6 3 L BUN 62 H 52 H Creatinine 1.50 H 1.25 Est GFR ( Amer) 56 L > 60 Glucose 130 H 120 H Calcium 8.0 L 8.3 L Phosphorus Magnesium 12/18/19 03:10 WBC RBC Hgb Hct MCV MCH MCHC RDW Plt Count Seg Neutrophils % Sodium Potassium Chloride Carbon Dioxide Anion Gap BUN Creatinine Est GFR ( Amer) Glucose Calcium Phosphorus 2.0 L Magnesium 1.7 12/14/19 12/14/19 14:24 14:24 Creatine Kinase 32 L Troponin I < 0.012 NT-Pro-B Natriuret Pep 1240 H Impressions: Abdomen/Pelvis CT 12/14/19 00:00 IMPRESSION: 1. Massively dilated stool-filled redundant sigmoid colon. Distention also ext ends to involve the descending colon. While sigmoid volvulus remains in the differential, it is felt to be less likely as a clear point of twisting or fixed obstruction is not identified. 2. Mild ascites. KUB X-Ray 12/14/19 15:01 IMPRESSION: Marked urinary bladder distention Distended tortuous sigmoid colon worrisome for sigmoid volvulus Chest X-Ray 12/16/19 04:51 IMPRESSION: Stable chest status post extubation. All labs, radiographs, diagnostic studies and EKGs were personally reviewed: Yes In addition, reports of radiographic and diagnostic studies were read: Yes Assessment and Plan - Diagnosis (1) Acute renal failure (ARF) Qualifiers: Acute renal failure type: with acute tubular necrosis Qualified Code(s): N17.0 - Acute kidney failure with tubular necrosis Is this a current diagnosis for this admission?: Yes Plan: Resolved (2) Jaundice Is this a current diagnosis for this admission?: Yes Plan: Imoproving (3) Sepsis Qualifiers: Sepsis type: sepsis due to unspecified organism Sepsis acute organ dysfunction status: with acute organ dysfunction Severe sepsis acute organ dysfunction type: acute renal failure Acute renal failure type: unspecified Severe sepsis shock status: unspecified Qualified Code(s): A41.9 - Sepsis, unspecified organism; R65.20 - Severe sepsis without septic shock; N17.9 - Acute kidney failure, unspecified Is this a current diagnosis for this admission?: Yes Plan: Resolved (4) Sigmoid volvulus Is this a current diagnosis for this admission?: Yes Plan: Resolved with surgery. (5) Hypokalemia Is this a current diagnosis for this admission?: Yes Plan: Improved but still a bit low. Replace. (6) Leukocytosis Qualifiers: Leukocytosis type: leukemoid reaction Qualified Code(s): D72.823 - Leukemoid reaction Is this a current diagnosis for this admission?: Yes Plan: Improved. No obvious sign off infection. Recheck labs in AM. Observe for now. Plan Summary: Get OOB and walk, Hope to D/C NG soon. Right now no need for TPN. Downgrade to surgical floor. Critical Time Critical Time (minutes): 25 Level of Care: MEDICAL Anticipated discharge: Home Within: Other -: 1. The care of a critical patient is a dynamic process. This note is a district representative synopsis but static in nature. The timeframe for treatments given in order is not necessarily the actual time these treatments may have been done. 2. This patient requires critical care secondary to ongoing requirements for therapy not offered or safe outside the critical care environment. Transfer to a lower level of care will result in altered life or limb morbidity and mortal ity. 3. Multidisciplinary rounds completed. 4. ABCDE bundle addressed.
--- NOTE | 2019-12-18 11:00 | PDOC PROGRESS REPORT ---
Subjective Progress Note for:: 12/18/19 Reason For Visit: BOWEL OBSTRUCTION Physical Exam Vital Signs: Temp Pulse Resp BP Pulse Ox 100.6 F H 105 H 12 122/89 H 100 12/16/19 01:44 12/18/19 07:00 12/18/19 06:15 12/18/19 05:46 12/18/19 06:15 Intake & Output 12/17/19 12/18/19 12/19/19 06:59 06:59 06:59 Intake Total 4656 1344 200 Output Total 3810 5500 100 Balance 846 -4156 100 Weight 58 kg 55.9 kg Results Laboratory Results: 12/18/19 03:10 12/18/19 03:10 12/17/19 12/18/19 12/18/19 16:44 03:10 03:10 WBC 30.7 H* RBC 2.69 L Hgb 7.8 L Hct 22.9 L MCV 85 MCH 29.1 MCHC 34.2 RDW 19.9 H Plt Count 107 L Seg Neutrophils % Not Reportable Sodium 158.1 H 160.5 H Potassium 2.8 L* 3.5 L Chloride 129 H 132 H Carbon Dioxide 23 26 Anion Gap 6 3 L BUN 62 H 52 H Creatinine 1.50 H 1.25 Est GFR ( Amer) 56 L > 60 Glucose 130 H 120 H Calcium 8.0 L 8.3 L Phosphorus Magnesium 12/18/19 03:10 WBC RBC Hgb Hct MCV MCH MCHC RDW Plt Count Seg Neutrophils % Sodium Potassium Chloride Carbon Dioxide Anion Gap BUN Creatinine Est GFR ( Amer) Glucose Calcium Phosphorus 2.0 L Magnesium 1.7 12/14/19 12/14/19 14:24 14:24 Creatine Kinase 32 L Troponin I < 0.012 NT-Pro-B Natriuret Pep 1240 H Impressions: Abdomen/Pelvis CT 12/14/19 00:00 IMPRESSION: 1. Massively dilated stool-filled redundant sigmoid colon. Distention also extends to involve the descending colon. While sigmoid volvulus remains in the differential, it is felt to be less likely as a clear point of twisting or fixed obstruction is not identified. 2. Mild ascites. KUB X-Ray 12/14/19 15:01 IMPRESSION: Marked urinary bladder distention Distended tortuous sigmoid colon worrisome for sigmoid volvulus Chest X-Ray 12/16/19 04:51 IMPRESSION: Stable chest status post extubation. Assessment & Plan - Diagnosis (1) Sigmoid volvulus Is this a current diagnosis for this admission?: Yes - Plan Summary Plan Summary: 6-year-old male status post exploratory laparotomy with Teague's procedure for necrotic/ischemic sigmoid colon. The patient is doing well today. He is awake and alert. He responds appropriately to questions. His blood pressure has normalized, as has his heart rate. His urine output is good. His colostomy is pink, although it is not functioning yet. The patient reports midline abdominal pain, however his pain medication is satisfactory. Out of bed today, ambulate. Aggressive pulmonary toilet. Awaiting bowel function. Okay for ice chips and popsicles at present. Plan for Lynn removal once patient is able to mobilize. The patient was discussed with Dr. Reed today. Plan for downgrade to floor bed later today.
[2019-12-18 13:14] LABS: APPEARANCE,URINE SLIGHTLY-CLOUDY; BILIRUBIN,URINE NEGATIVE (NEGATIVE); GLUCOSE, URINE NEGATIVE (NEGATIVE); KETONES,URINE NEGATIVE (NEGATIVE); LEUKOCYTE ESTERASE,URINE TRACE (NEGATIVE); NITRITE,URINE NEGATIVE (NEGATIVE); PROTEIN,URINE 100 mg/dL (NEGATIVE); URINE SPECIFIC GRAVITY 1.015; UROBILINOGEN,URINE NEGATIVE mg/dL (<2.0)
[2019-12-18 13:16] LABS: COLOR,URINE YELLOW
[2019-12-18] MEDS ORDERED: ENOXAPARIN SODIUM INJ 40 MG/0.4 ML DISP.SYRIN SUBCUT ONE (14:30)
--- NOTE | 2019-12-18 14:41 | PDOC CRITICAL CARE PROG REPORT ---
General Date:: 12/17/19 ICU Day:: 3 Hospital Day:: 3 Resuscitation Status: Full Code Events in the past 12 to 24 Hours:: Extubated and more awake Review of systems relevant to events:: GI and neurological. Reason for ICU Addmission:: High WBC. Need to mobilize - Medications: Medications reviewed and adjusted accordingly: Yes Vasopressors:: None Sedation:: None Physical Exam Vital Signs: Temp Pulse Resp BP Pulse Ox 100.6 F H 100 15 125/87 H 99 12/16/19 01:44 12/16/19 19:00 12/17/19 10:00 12/17/19 08:26 12/17/19 10:00 Intake & Output 12/16/19 12/17/19 12/18/19 06:59 06:59 06:59 Intake Total 8416 4656 Output Total 8660 3810 1425 Balance -244 846 -1425 Weight 58.2 kg 58 kg Weight/Height Weight 58 kg Height 5 ft 6 in General appearance: PRESENT: no acute distress, cooperative, thin Head exam: PRESENT: atraumatic, normocephalic Eye exam: PRESENT: conjunctiva pink, EOMI, PERRLA. ABSENT: scleral icterus Ear exam: PRESENT: normal external ear exam Mouth exam: PRESENT: moist, tongue midline Respiratory exam: PRESENT: clear to auscultation aldair. ABSENT: rales, rhonchi, wheezes Cardiovascular exam: PRESENT: RRR, tachycardia. ABSENT: diastolic murmur, rubs, systolic murmur GI/Abdominal exam: PRESENT: hypoactive bowel sounds, soft, other - Wound clean. ABSENT: distended, guarding, mass, organolmegaly, rebound, tenderness Rectal exam: PRESENT: deferred Extremities exam: PRESENT: full ROM. ABSENT: calf tenderness, clubbing, pedal edema Musculoskeletal exam: PRESENT: normal inspection Neurological exam: PRESENT: alert, awake, oriented to person, oriented to place, oriented to time, oriented to situation, CN II-XII grossly intact. ABSENT: motor sensory deficit Psychiatric exam: PRESENT: appropriate affect, normal mood. ABSENT: homicidal ideation, suicidal ideation Skin exam: PRESENT: dry, intact, warm. ABSENT: cyanosis, rash Laboratory/Radiographs Laboratory Results: 12/17/19 03:28 12/17/19 03:28 12/16/19 12/17/19 12/17/19 15:15 03:28 03:28 WBC 32.9 H* RBC 2.81 L Hgb 8.3 L Hct 23.9 L MCV 85 MCH 29.4 MCHC 34.6 RDW 20.4 H Plt Count 131 L Seg Neutrophils % Not Reportable Sodium 154.5 H 159.4 H Potassium 3.1 L 2.9 L* Chloride 128 H 131 H Carbon Dioxide 18 L 21 L Anion Gap 9 7 BUN 92 H D 77 H Creatinine 2.90 H 1.77 H Est GFR ( Amer) 26 L 46 L Glucose 157 H 142 H Calcium 7.9 L 8.2 L 12/14/19 12/14/19 14:24 14:24 Creatine Kinase 32 L Troponin I < 0.012 NT-Pro-B Natriuret Pep 1240 H Impressions: Abdomen/Pelvis CT 12/14/19 00:00 IMPRESSION: 1. Massively dilated stool-filled redundant sigmoid colon. Distention also extends to involve the descending colon. While sigmoid volvulus remains in the differential, it is felt to be less likely as a clear point of twisting or fixed obstruction is not identified. 2. Mild ascites. KUB X-Ray 12/14/19 15:01 IMPRESSION: Marked urinary bladder distention Distended tortuous sigmoid colon worrisome for sigmoid volvulus Chest X-Ray 12/16/19 04:51 IMPRESSION: Stable chest status post extubation. All labs, radiographs, diagnostic studies and EKGs were personally reviewed: Yes In addition, reports of radiographic and diagnostic studies were read: Yes Assessment and Plan - Diagnosis (1) Acute renal failure (ARF) Qualifiers: Acute renal failure type: with acute tubular necrosis Qualified Code(s): N1 7.0 - Acute kidney failure with tubular necrosis Is this a current diagnosis for this admission?: Yes Plan: Improving to 77/1.71 (2) Jaundice Is this a current diagnosis for this admission?: Yes Plan: Improving with total bili down to 4.1. (3) Sepsis Qualifiers: Sepsis type: sepsis due to unspecified organism Sepsis acute organ dysfunction status: with acute organ dysfunction Severe sepsis acute organ dysfunction type: acute renal failure Acute renal failure type: unspecified Severe sepsis shock status: unspecified Qualified Code(s): A41.9 - Sepsis, unspecified organism; R65.20 - Severe sepsis without septic shock; N17.9 - Acute kidney failure, unspecified Is this a current diagnosis for this admission?: Yes Plan: He is still tachycardic and WBC is 32K, however I believe this is a residual of stress, previous sepsis, perhaps a leukemoid reaction. (4) Sigmoid volvulus Is this a current diagnosis for this admission?: Yes Plan: Resolved with surgery. Inc (5) Hypokalemia Is this a current diagnosis for this admission?: Yes Critical Time Critical Time (minutes): 35 Level of Care: ICU Anticipated discharge: Home Within: Other -: 1. The care of a critical patient is a dynamic process. This note is a traffic representative synopsis but static in nature. The timeframe for treatments given in order is not necessarily the actual time these treatments may have been done. 2. This patient requires critical care secondary to ongoing requirements for therapy not offered or safe outside the critical care environment. Transfer to a lower level of care will result in altered life or limb morbidity and mortality. 3. Multidisciplinary rounds completed. 4. ABCDE bundle addressed.
[2019-12-18] MEDS: ENOXAPARIN SODIUM INJ 40 MG/0.4 ML DISP.SYRIN SUBCUT SCH (16:07)
[2019-12-18] MEDS ORDERED: DEXMEDETOMIDINE IN 0.9 % NACL 400 MCG/100 ML RTUPB IV PRN (19:32)
[2019-12-18] MEDS ORDERED: PHOSPHORUS #1 250 MG TABLET NG ONE (21:00)
[2019-12-18] MEDS ORDERED: QUETIAPINE FUMARATE 25 MG TABLET NG ONE (23:50)
[2019-12-19] MEDS: INSULIN REG, HUMAN 100 UNIT/ML 3 ML VIAL (PYX) SUBCUT SCH ×4 (00:10→18:08)
[2019-12-19] MEDS ORDERED: QUETIAPINE FUMARATE 25 MG TABLET ONE (00:14)
[2019-12-19] MEDS ORDERED: HALOPERIDOL LACTATE INJ 5 MG/1 ML VIAL IV ONE (00:41)
[2019-12-19] MEDS ORDERED: 1/2 NORMAL SALINE 500 ML IV ONE (02:10)
[2019-12-19 06:22] LABS: MEAN CORPUSCULAR HEMOGLOBIN 29.9 pg (27.0-33.4); MEAN CORPUSCULAR HGB CONC 34.4 g/dL (32.0-36.0); MEAN CORPUSCULAR VOLUME 87 fl (80-97); RED BLOOD COUNT 2.54 10^6/uL (4.35-5.55); RED CELL DISTRIBUTION WIDTH 20.5 % (11.5-14.0); WHITE BLOOD COUNT 12.1 10^3/uL (4.0-10.5)
[2019-12-19 06:36] LABS: PHOSPHORUS 3.2 mg/dL (2.5-4.5)
[2019-12-19 06:37] LABS: BLOOD UREA NITROGEN 42 mg/dL (7-20); CALCIUM 7.6 mg/dL (8.4-10.2); GLUCOSE 111 mg/dL (75-110); POTASSIUM 3.5 mmol/L (3.6-5.0)
[2019-12-19 06:42] LABS: CARBON DIOXIDE 27 mmol/L (22-30); CHLORIDE 127 mmol/L (98-107)
[2019-12-19 06:43] LABS: PLATELET COUNT 88 10^3/uL (150-450)
[2019-12-19 06:45] LABS: ANION GAP 3 (5-19)
[2019-12-19 06:50] LABS: ABSOLUTE LYMPHOCYTES# (MANUAL) 1.8 10^3/uL (0.5-4.7); ABSOLUTE MONOCYTES # (MANUAL) 0.2 10^3/uL (0.1-1.4); BASOPHILS % (MANUAL) 0 % (0-2); EOSINOPHILS % (MANUAL) 1 % (0-6); LYMPHOCYTES % (MANUAL) 15 % (13-45); MONOCYTES % (MANUAL) 2 % (3-13); SEGMENTED NEUTROPHILS % (MAN) 82 % (42-78); TOTAL CELLS COUNTED 100
[2019-12-19 06:51] LABS: ANISOCYTOSIS 2+; PLATELET COMMENT DECREASED
[2019-12-19 06:57] LABS: OVALOCYTES SLIGHT; POLYCHROMASIA SLIGHT; TARGET CELLS 1+
[2019-12-19 07:06] LABS: NUCLEATED RED BLOOD CELLS 7 /100 WBC (0)
[2019-12-19 07:08] LABS: HEMOGLOBIN 7.6 g/dL (13.5-17.0)
--- NOTE | 2019-12-19 08:14 | PDOC CRITICAL CARE PROG REPORT ---
General Date:: 12/19/19 Hospital Day:: 4 Resuscitation Status: Full Code Events in the past 12 to 24 Hours:: Cant sleep, beginning to get delirious Review of systems relevant to events:: Neurological and GI Reason for ICU Addmission:: Need to mobilize and get floor bed. - Medications: Medications reviewed and adjusted accordingly: Yes Vasopressors:: None Sedation:: None Physical Exam Vital Signs: Temp Pulse Resp BP Pulse Ox 100.6 F H 108 H 18 86/59 L 98 12/16/19 01:44 12/19/19 07:00 12/19/19 06:00 12/19/19 05:48 12/19/19 03:16 Intake & Output 12/18/19 12/19/19 12/20/19 06:59 06:59 06:59 Intake Total 1344 1763 Output Total 5500 3080 400 Balance -4156 -1317 -400 Weight 55.9 kg 57.4 kg Weight/Height Weight 57.4 kg Height 5 ft 6 in General appearance: PRESENT: no acute distress, thin, well-developed, well- nourished Head exam: PRESENT: atraumatic, normocephalic Eye exam: PRESENT: conjunctiva pink, EOMI, PERRLA. ABSENT: scleral icterus Ear exam: PRESENT: normal external ear exam Mouth exam: PRESENT: moist, tongue midline Respiratory exam: PRESENT: clear to auscultation aldair. ABSENT: rales, rhonchi, wheezes Cardiovascular exam: PRESENT: tachycardia Vascular exam: PRESENT: normal capillary refill GI/Abdominal exam: PRESENT: hypoactive bowel sounds, normal bowel sounds, soft. ABSENT: distended, guarding, mass, organolmegaly, rebound, tenderness Rectal exam: PRESENT: deferred Extremities exam: PRESENT: full ROM. ABSENT: calf tenderness, clubbing, pedal edema Musculoskeletal exam: PRESENT: normal inspection Neurological exam: PRESENT: altered, awake, oriented to person, other - He seems to look cooperative but on nights he has lost insight into condition and is likely getting deliriou from surgery, pain, high sodium, immobility. Skin exam: PRESENT: dry, intact, warm. ABSENT: cyanosis, rash Laboratory/Radiographs Laboratory Results: 12/19/19 06:08 12/19/19 06:08 12/18/19 12/19/19 12/19/19 12:40 06:08 06:08 WBC 12.1 H RBC 2.54 L Hgb 7.6 L Hct 22.0 L MCV 87 MCH 29.9 MCHC 34.4 RDW 20.5 H Plt Count 88 L Seg Neutrophils % Not Reportable Sodium 157.2 H Potassium 3.5 L Chloride 127 H Carbon Dioxide 27 Anion Gap 3 L BUN 42 H Creatinine 1.06 Est GFR ( Amer) > 60 Glucose 111 H Calcium 7.6 L Phosphorus Magnesium Urine Color YELLOW Urine Appearance SLIGHTLY-CLOUDY Urine pH 5.0 Ur Specific [place] 1.015 Urine Protein 100 H Urine Glucose (UA) NEGATIVE Urine Ketones NEGATIVE Urine Blood MODERATE H Urine Nitrite NEGATIVE Ur Leukocyte Esterase TRACE H Urine WBC (Auto) 40 Urine RBC (Auto) 30 12/19/19 06:08 WBC RBC Hgb Hct MCV MCH MCHC RDW Plt Count Seg Neutrophils % Sodium Potassium Chloride Carbon Dioxide Anion Gap BUN Creatinine Est GFR ( Amer) Glucose Calcium Phosphorus 3.2 Magnesium 2.1 Urine Color Urine Appearance Urine pH Ur Specific [place] Urine Protein Urine Glucose (UA) Urine Ketones Urine Blood Urine Nitrite Ur Leukocyte Esterase Urine WBC (Auto) Urine RBC (Auto) 12/14/19 12/14/19 14:24 14:24 Creatine Kinase 32 L Troponin I < 0.012 NT-Pro-B Natriuret Pep 1240 H Impressions: Abdomen/Pelvis CT 12/14/19 00:00 IMPRESSION: 1. Massively dilated stool-filled redundant sigmoid colon. Distention also extends to involve the descending colon. While sigmoid volvulus remains in the differential, it is felt to be less likely as a clear point of twisting or fixed obstruction is not identified. 2. Mild ascites. KUB X-Ray 12/14/19 15:01 IMPRESSION: Marked urinary bladder distention Distended tortuous sigmoid colon worrisome for sigmoid volvulus Chest X-Ray 12/16/19 04:51 IMPRESSION: Stable chest status post extubation. All labs, radiographs, diagnostic studies and EKGs were personally reviewed: Yes In addition, reports of radiographic and diagnostic studies were read: Yes Assessment and Plan - Diagnosis (1) Sigmoid volvulus Is this a current diagnosis for this admission?: Yes Plan: Resolved with surgery (2) Acute renal failure (ARF) Qualifiers: Acute renal failure type: with acute tubular necrosis Qualified Code(s): N17.0 - Acute kidney failure with tubular necrosis Is this a current diagnosis for this admission?: Yes Plan: Resolved. (3) Jaundice Is this a current diagnosis for this admission?: Yes Plan: Resolving (4) Sepsis Qualifiers: Sepsis type: sepsis due to unspecified organism Sepsis acute organ dysfunction status: with acute organ dysfunction Severe sepsis acute organ dysfunction type: acute renal failure Acute renal failure type: unspecified Severe sepsis shock status: unspecified Qualified Code(s): A41.9 - Sepsis, unspecified organism; R65.20 - Severe sepsis without septic shock; N17.9 - Acute kidney failure, unspecified Is this a current diagnosis for this admission?: Yes Plan: Resolved (5) Hypokalemia Is this a current diagnosis for this admission?: Yes Plan: Improving but still a bit low replace IV. (6) Hypernatremia Is this a current diagnosis for this admission?: Yes Plan: Improved but still high at 157. Continue D5W and recheck labs (7) Leukocytosis Qualifiers: Leukocytosis type: leukemoid reaction Qualified Code(s): D72.823 - Leukemoid reaction Is this a current diagnosis for this admission?: Yes Plan: Resolved level at 12K this AM. (8) Delirium due to another medical condition, acute, hypoactive Is this a current diagnosis for this admission?: Yes Plan: He is at high risk with surgery, pain, narcotics, immobility playing a role. There is no good pharmacologic treatment. He needs reorientation, mobility. Getting up and walking and transfer out of ICU where he can have more uninterupted sleep and get his sleep/wake cycle more back to normal. Familiar voices may help but with a restricted visitor policy that is not possible right now. Plan Summary: Try to get a floor bed today and reorient. Critical Time Critical Time (minutes): 25 Level of Care: MEDICAL Anticipated discharge: Home Within: Other -: 1. The care of a critical patient is a dynamic process. This note is a re presentative synopsis but static in nature. The timeframe for treatments given in order is not necessarily the actual time these treatments may have been done. 2. This patient requires critical care secondary to ongoing requirements for therapy not offered or safe outside the critical care environment. Transfer to a lower level of care will result in altered life or limb morbidity and mortalit y. 3. Multidisciplinary rounds completed. 4. ABCDE bundle addressed.
[2019-12-19] MEDS: MEROPENEM 1 GM in NORMAL SALINE 50 ML IV SCH ×2 (10:05→21:40)
[2019-12-19] MEDS: ENOXAPARIN SODIUM INJ 40 MG/0.4 ML DISP.SYRIN SUBCUT SCH (10:06)
[2019-12-19 12:27] LABS: PATH REVIEW PATHOLOGIST REVIEWED
--- NOTE | 2019-12-19 12:42 | PDOC PROGRESS REPORT ---
Subjective Progress Note for:: 12/19/19 Reason For Visit: BOWEL OBSTRUCTION Physical Exam Vital Signs: Temp Pulse Resp BP Pulse Ox 100.6 F H 108 H 13 100/77 100 12/16/19 01:44 12/19/19 07:00 12/19/19 09:15 12/19/19 08:48 12/19/19 08:00 Intake & Output 12/18/19 12/19/19 12/20/19 06:59 06:59 06:59 Intake Total 1344 1763 Output Total 5500 3080 400 Balance -4156 -1317 -400 Weight 55.9 kg 57.4 kg Results Laboratory Results: 12/19/19 06:08 12/19/19 06:08 12/18/19 12/19/19 12/19/19 12:40 06:08 06:08 WBC 12.1 H RBC 2.54 L Hgb 7.6 L Hct 22.0 L MCV 87 MCH 29.9 MCHC 34.4 RDW 20.5 H Plt Count 88 L Seg Neutrophils % Not Reportable Sodium 157.2 H Potassium 3.5 L Chloride 127 H Carbon Dioxide 27 Anion Gap 3 L BUN 42 H Creatinine 1.06 Est GFR ( Amer) > 60 Glucose 111 H Calcium 7.6 L Phosphorus Magnesium Urine Color YELLOW Urine Appearance SLIGHTLY-CLOUDY Urine pH 5.0 Ur Specific [place] 1.015 Urine Protein 100 H Urine Glucose (UA) NEGATIVE Urine Ketones NEGATIVE Urine Blood MODERATE H Urine Nitrite NEGATIVE Ur Leukocyte Esterase TRACE H Urine WBC (Auto) 40 Urine RBC (Auto) 30 12/19/19 06:08 WBC RBC Hgb Hct MCV MCH MCHC RDW Plt Count Seg Neutrophils % Sodium Potassium Chloride Carbon Dioxide Anion Gap BUN Creatinine Est GFR ( Amer) Glucose Calcium Phosphorus 3.2 Magnesium 2.1 Urine Color Urine Appearance Urine pH Ur Specific [place] Urine Protein Urine Glucose (UA) Urine Ketones Urine Blood Urine Nitrite Ur Leukocyte Esterase Urine WBC (Auto) Urine RBC (Auto) 12/14/19 12/14/19 14:24 14:24 Creatine Kinase 32 L Troponin I < 0.012 NT-Pro-B Natriuret Pep 1240 H Impressions: Abdomen/Pelvis CT 12/14/19 00:00 IMPRESSION: 1. Massively dilated stool-filled redundant sigmoid colon. Distention also extends to involve the descending colon. While sigmoid volvulus remains in the differential, it is felt to be less likely as a clear point of twisting or fixed obstruction is not identified. 2. Mild ascites. KUB X-Ray 12/14/19 15:01 IMPRESSION: Marked urinary bladder distention Distended tortuous sigmoid colon worrisome for sigmoid volvulus Chest X-Ray 12/16/19 04:51 IMPRESSION: Stable chest status post extubation. Assessment & Plan - Diagnosis (1) Sigmoid volvulus Is this a current diagnosis for this admission?: Yes - Plan Summary Plan Summary: 69-year-old male status post exploratory laparotomy with Teague's procedure for necrotic/ischemic sigmoid colon. The patient is doing well today. He is awake and alert. He responds appropriately to questions. His colostomy is pink, although it is still not productive. The patient reports midline abdominal pain. Out of bed today, ambulate. Aggressive pulmonary toilet. Awaiting bowel function. Okay for ice chips and popsicles at present. The patient was discussed with Dr. Reed today. Awaiting floor bed.
[2019-12-19] MEDS: DEXTROSE 5%-WATER 1000 ML 1,000 ML IV PRN (18:00)
[2019-12-19] MEDS ORDERED: FINASTERIDE 5 MG TABLET PO ONE (21:00)
[2019-12-19] MEDS ORDERED: PHOSPHORUS #1 250 MG TABLET NG ONE (21:02)
--- NOTE | 2019-12-19 21:23 | Progress Note ---
Provider Note Provider Note: Patient with minimal voids past 24 hrs and 1 incontinent episode this afternoon around 15:00 pm. I personally performed POCUS of the bladder demonstrating a moderately distended bladder with ~400-500 mL of urine present. In my discussion with Mr Guido, he does admit to dribbling and weak urinary stream at [facility] prior to admission as well as recalling that a physician has informed him in the past that he does have prostate hypertrophy. He reports he does not take any medications for this at home. Mr Guido has not had IV opioid narcotics for several days now, therefore, I do not suspect that is the etiology. Renal function continues to improve and I have no overt concerns of obstructive uropathy at this time. Will continue to follow while patient is in ICU awaiting floor bed. Plan: -Initiate Finasteride nightly and evaluate response over the next 72 hrs to see if symptoms improve. -Would avoid indwelling catheter, performing in-and-out catheterizations only as necessary to empty bladder if volume >500 mL with patient inability to void upon request, to minimize trauma for repeated catheterizations. It's possible he may require more bladder distention before feeling as if he has to void. -Perform post-void or catheterization bladder scans to ensure emptying or acceptable residual. -Anticipate he will need to be discharged on Finasteride or Tamsulosin with a recommendation of following up with his PCP.
[2019-12-20] MEDS: INSULIN REG, HUMAN 100 UNIT/ML 3 ML VIAL (PYX) SUBCUT SCH ×4 (00:32→18:52)
[2019-12-20] MEDS ORDERED: QUETIAPINE FUMARATE 100 MG TABLET NG ONE (02:30)
[2019-12-20 07:09] LABS: HEMATOCRIT 22.5 % (37.9-51.0); MEAN CORPUSCULAR HGB CONC 34.2 g/dL (32.0-36.0); MEAN CORPUSCULAR VOLUME 88 fl (80-97); RED BLOOD COUNT 2.57 10^6/uL (4.35-5.55); RED CELL DISTRIBUTION WIDTH 20.1 % (11.5-14.0); WHITE BLOOD COUNT 13.5 10^3/uL (4.0-10.5)
[2019-12-20 07:20] LABS: ANION GAP 6 (5-19); BLOOD UREA NITROGEN 50 mg/dL (7-20); CALCIUM 7.5 mg/dL (8.4-10.2); CARBON DIOXIDE 27 mmol/L (22-30); CHLORIDE 120 mmol/L (98-107); GLUCOSE 98 mg/dL (75-110); PHOSPHORUS 3.9 mg/dL (2.5-4.5); POTASSIUM 3.5 mmol/L (3.6-5.0)
[2019-12-20 07:35] LABS: PLATELET COUNT 98 10^3/uL (150-450)
[2019-12-20 07:37] LABS: HEMOGLOBIN 7.7 g/dL (13.5-17.0)
[2019-12-20] MEDS: POTASSI CL 20 MEQ/D5-1/2NS 1L 1,000 ML IV PRN ×2 (07:51→18:56)
[2019-12-20] MEDS ORDERED: 1/2 NORMAL SALINE 1,000 ML IV PRN (07:52)
[2019-12-20] MEDS: 1/2 NORMAL SALINE 500 ML IV ONE ×2 (07:57→08:09)
[2019-12-20] MEDS ORDERED: POTASSIUM CHLORIDE 20 MEQ PACKET NG ONE (08:00)
--- NOTE | 2019-12-20 08:58 | PDOC PROGRESS REPORT ---
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 Physical Exam Vital Signs: Temp Pulse Resp BP Pulse Ox 97.5 F 100 11 L 115/80 99 12/20/19 06:08 12/19/19 20:00 12/20/19 07:00 12/20/19 02:13 12/19/19 20:00 Intake & Output 12/19/19 12/20/19 12/21/19 06:59 06:59 06:59 Intake Total 1763 1406 Output Total 3080 2590 950 Balance -1317 -1184 -950 Weight 57.4 kg 54.7 kg General appearance: PRESENT: no acute distress, disheveled Head exam: PRESENT: atraumatic Eye exam: PRESENT: EOMI Ear exam: PRESENT: normal external ear exam Mouth exam: PRESENT: dry mucosa Teeth exam: PRESENT: poor dentation Neck exam: PRESENT: full ROM Respiratory exam: PRESENT: clear to auscultation aldair Cardiovascular exam: PRESENT: RRR, tachycardia Pulses: PRESENT: +1 pedal pulses bilateral Breast: PRESENT: Normal GI/Abdominal exam: PRESENT: soft, other - stoma pink, non productive Rectal exam: PRESENT: deferred Gentrourinary exam: PRESENT: indwelling catheter Extremities exam: PRESENT: full ROM Musculoskeletal exam: PRESENT: ambulatory Neurological exam: PRESENT: altered, awake Psychiatric exam: PRESENT: appropriate affect, unusual affect Skin exam: PRESENT: dry Results Laboratory Results: 12/20/19 06:05 12/20/19 06:05 12/20/19 12/20/19 06:05 06:05 WBC 13.5 H RBC 2.57 L Hgb 7.7 L Hct 22.5 L MCV 88 MCH 30.0 MCHC 34.2 RDW 20.1 H Plt Count 98 L Sodium 153.3 H Potassium 3.5 L Chloride 120 H Carbon Dioxide 27 Anion Gap 6 BUN 50 H Creatinine 1.42 H Est GFR ( Amer) > 60 Glucose 98 Calcium 7.5 L Phosphorus 3.9 Magnesium 2.0 12/14/19 12/14/19 14:24 14:24 Creatine Kinase 32 L Troponin I < 0.012 NT-Pro-B Natriuret Pep 1240 H Impressions: Abdomen/Pelvis CT 12/14/19 00:00 IMPRESSION: 1. Massively dilated stool-filled redundant sigmoid colon. Distention also extends to involve the descending colon. While sigmoid volvulus remains in the differential, it is felt to be less likely as a clear point of twisting or fixed obstruction is not identified. 2. Mild ascites. KUB X-Ray 12/14/19 15:01 IMPRESSION: Marked urinary bladder distention Distended tortuous sigmoid colon worrisome for sigmoid volvulus Chest X-Ray 12/16/19 04:51 IMPRESSION: Stable chest status post extubation. Assessment & Plan - Plan Summary Plan Summary: appears dehydrated with elevated bun/creat dry mucosa, high ng output plan-iv rehydration awaiting return of bowel function.
[2019-12-20] MEDS: ENOXAPARIN SODIUM INJ 40 MG/0.4 ML DISP.SYRIN SUBCUT SCH (09:11)
[2019-12-20] MEDS: MEROPENEM 1 GM in NORMAL SALINE 50 ML IV SCH ×2 (09:11→21:40)
--- NOTE | 2019-12-20 10:31 | PDOC CRITICAL CARE PROG REPORT ---
General Date:: 12/20/19 Hospital Day:: 6 Resuscitation Status: Full Code Events in the past 12 to 24 Hours:: Still delirious, still has NG. Urinary retention. Review of systems relevant to events:: GI, neurologic, . Reason for ICU Addmission:: Need to mobilize and get floor bed. - Medications: Medications reviewed and adjusted accordingly: Yes Vasopressors:: None Sedation:: None Physical Exam Vital Signs: Temp Pulse Resp BP Pulse Ox 98.6 F 100 9 L 134/63 H 99 12/20/19 08:00 12/19/19 20:00 12/20/19 09:00 12/20/19 07:50 12/19/19 20:00 Intake & Output 12/19/19 12/20/19 12/21/19 06:59 06:59 06:59 Intake Total 1763 1406 50 Output Total 3080 2590 950 Balance -1317 -1184 -900 Weight 57.4 kg 54.7 kg Weight/Height Weight 54.7 kg Height 5 ft 6 in General appearance: PRESENT: no acute distress, cooperative, well-developed, well-nourished Head exam: PRESENT: atraumatic, normocephalic Eye exam: PRESENT: conjunctiva pink, EOMI, PERRLA. ABSENT: scleral icterus Ear exam: PRESENT: normal external ear exam Mouth exam: PRESENT: moist, tongue midline Respiratory exam: PRESENT: clear to auscultation aldair. ABSENT: rales, rhonchi, wheezes Cardiovascular exam: PRESENT: RRR, tachycardia. ABSENT: diastolic murmur, rubs, systolic murmur GI/Abdominal exam: PRESENT: normal bowel sounds, soft. ABSENT: distended, guarding, mass, organolmegaly, rebound, tenderness Rectal exam: PRESENT: deferred Extremities exam: PRESENT: full ROM. ABSENT: calf tenderness, clubbing, pedal edema Neurological exam: PRESENT: alert, altered, awake, oriented to person, CN II-XII grossly intact Psychiatric exam: PRESENT: appropriate affect, normal mood. ABSENT: homicidal ideation, suicidal ideation Skin exam: PRESENT: dry, intact, warm. ABSENT: cyanosis, rash Laboratory/Radiographs Laboratory Results: 12/20/19 06:05 12/20/19 06:05 12/20/19 12/20/19 06:05 06:05 WBC 13.5 H RBC 2.57 L Hgb 7.7 L Hct 22.5 L MCV 88 MCH 30.0 MCHC 34.2 RDW 20.1 H Plt Count 98 L Sodium 153.3 H Potassium 3.5 L Chloride 120 H Carbon Dioxide 27 Anion Gap 6 BUN 50 H Creatinine 1.42 H Est GFR ( Amer) > 60 Glucose 98 Calcium 7.5 L Phosphorus 3.9 Magnesium 2.0 12/14/19 12/14/19 14:24 14:24 Creatine Kinase 32 L Troponin I < 0.012 NT-Pro-B Natriuret Pep 1240 H Impressions: Abdomen/Pelvis CT 12/14/19 00:00 IMPRESSION: 1. Massively dilated stool-filled redundant sigmoid colon. Distention also extends to involve the descending colon. While sigmoid volvulus remains in the differential, it is felt to be less likely as a clear point of twisting or fixed obstruction is not identified. 2. Mild ascites. KUB X-Ray 12/14/19 15:01 IMPRESSION: Marked urinary bladder distention Distended tortuous sigmoid colon worrisome for sigmoid volvulus Chest X-Ray 12/16/19 04:51 IMPRESSION: Stable chest status post extubation. All labs, radiographs, diagnostic studies and EKGs were personally reviewed: Yes In addition, reports of radiographic and diagnostic studies were read: Yes Assessment and Plan - Diagnosis (1) Delirium due to another medical condition, acute, hypoactive Is this a current diagnosis for this admission?: Yes Plan: The most important aspect besides his surgical care. He is at fairly high risk. Surgery, pain, use of narcotics, immobility. Treatment is to mobilize. He has not used narcotics for 2 days. He has not slept for 3-4 nights. Catnaps. Above all else get him out of the ICU so sleep/wake cycles can be reestablished and he can walk easier, and see day light. (2) Sigmoid volvulus Is this a current diagnosis for this admission?: Yes Plan: Resolved with surgery. (3) Acute renal failure (ARF) Qualifiers: Acute renal failure type: with acute tubular necrosis Qualified Code(s): N17.0 - Acute kidney failure with tubular necrosis Is this a current diagnosis for this admission?: Yes Plan: Resolved (4) Jaundice Is this a current diagnosis for this admission?: Yes Plan: Improving (5) Sepsis Qualifiers: Sepsis type: sepsis due to unspecified organism Sepsis acute organ dysfunction status: with acute organ dysfunction Severe sepsis acute organ dysfunction type: acute renal failure Acute renal failure type: unspecified Severe sepsis shock status: unspecified Qualified Code(s): A41.9 - Sepsis, unspecified organism; R65.20 - Severe sepsis without septic shock; N17.9 - Acute kidney failure, unspecified Is this a current diagnosis for this admission?: Yes Plan: Resolved (6) Hypokalemia Is this a current diagnosis for this admission?: Yes Plan: Nearly resolved (7) Hypernatremia Is this a current diagnosis for this admission?: Yes Plan: Improving (8) Leukocytosis Qualifiers: Leukocytosis type: leukemoid reaction Qualified Code(s): D72.823 - Leukemoid reaction Is this a current diagnosis for this admission?: Yes Plan: Resolved. Plan Summary: Get him a floor bed. Critical Time Critical Time (minutes): 25 Level of Care: MEDICAL Anticipated discharge: Home with Homehealth Within: Other -: 1. The care of a critical patient is a dynamic process. This note is a district representative synopsis but static in nature. The timeframe for treatments given in order is not necessarily the actual time these treatments may have been done. 2. This patient requires critical care secondary to ongoing requirements for therapy not offered or safe outside the critical care environment. Transfer to a lower level of care will result in altered life or limb morbidity and mortality. 3. Multidisciplinary rounds completed. 4. ABCDE bundle addressed.
[2019-12-20 11:47] LABS: APPEARANCE,URINE SLIGHTLY-CLOUDY; BILIRUBIN,URINE NEGATIVE (NEGATIVE); COLOR,URINE DARK YELLOW; GLUCOSE, URINE NEGATIVE (NEGATIVE); KETONES,URINE NEGATIVE (NEGATIVE); LEUKOCYTE ESTERASE,URINE TRACE (NEGATIVE); NITRITE,URINE NEGATIVE (NEGATIVE); PROTEIN,URINE 30 mg/dL (NEGATIVE); URINE SPECIFIC GRAVITY 1.014
[2019-12-20] MEDS: FINASTERIDE 5 MG TABLET PO SCH (21:40)
[2019-12-20] MEDS ORDERED: FINASTERIDE 5 MG TABLET PO SCH (22:00)
[2019-12-21] MEDS: INSULIN REG, HUMAN 100 UNIT/ML 3 ML VIAL (PYX) SUBCUT SCH ×4 (00:28→21:46)
[2019-12-21] MEDS: POTASSI CL 20 MEQ/D5-1/2NS 1L 1,000 ML IV PRN (05:40)
--- NOTE | 2019-12-21 08:10 | PDOC PROGRESS REPORT ---
Subjective Progress Note for:: 12/21/19 Reason For Visit: BOWEL OBSTRUCTION Nasogastric tube draining over a liter overnight. Lynn catheter draining. Patient remains hemodynamically stable. Minimal output from ostomy. Physical Exam Vital Signs: Temp Pulse Resp BP Pulse Ox 98.0 F 106 H 19 107/70 100 12/20/19 22:00 12/20/19 22:00 12/20/19 22:00 12/20/19 22:00 12/20/19 22:00 Intake & Output 12/20/19 12/21/19 12/22/19 06:59 06:59 06:59 Intake Total 1406 4051 Output Total 2590 2980 Balance -1184 1071 Weight 54.7 kg 54.7 kg General appearance: PRESENT: other - Eyes open, minimal verbal communication, no acute distress. GI/Abdominal exam: PRESENT: other - Dressing removed from midline incision; madelin intact; ostomy with minimal cellular slough; ostomy pink, some liquid stool in the bag. Fairly dark brownish-green nasogastric drainage. Results Laboratory Results: 12/20/19 06:05 12/20/19 06:05 12/20/19 11:20 Urine Color DARK YELLOW Urine Appearance SLIGHTLY-CLOUDY Urine pH 5.0 Ur Specific [place] 1.014 Urine Protein 30 H Urine Glucose (UA) NEGATIVE Urine Ketones NEGATIVE Urine Blood MODERATE H Urine Nitrite NEGATIVE Ur Leukocyte Esterase TRACE H Urine WBC (Auto) 10 Urine RBC (Auto) 5 12/14/19 12/14/19 14:24 14:24 Creatine Kinase 32 L Troponin I < 0.012 NT-Pro-B Natriuret Pep 1240 H Impressions: Abdomen/Pelvis CT 12/14/19 00:00 IMPRESSION: 1. Massively dilated stool-filled redundant sigmoid colon. Distention also extends to involve the descending colon. While sigmoid volvulus remains in the differential, it is felt to be less likely as a clear point of twisting or fixed obstruction is not identified. 2. Mild ascites. KUB X-Ray 12/14/19 15:01 IMPRESSION: Marked urinary bladder distention Distended tortuous sigmoid colon worrisome for sigmoid volvulus Chest X-Ray 12/16/19 04:51 IMPRESSION: Stable chest status post extubation. Assessment & Plan - Diagnosis (1) Sigmoid volvulus Is this a current diagnosis for this admission?: Yes Plan: Impression: Patient is 6 days status post exploratory laparotomy sigmoid colectomy, colostomy, Teague's procedure with persistent postop ileus, electrolyte abnormalities: Urinary retention, Lynn catheter backend, acute renal insufficiency stabilizing. No evidence of acute abdomen. Ostomy viable Recommendations: 1. Continue nasogastric drainage 2. Continue correction of electrolyte abnormalities including sodium, potassium, and chloride. 3. Continue truncating intravenous antibiotics. 4. I have discussed patient's care with hospitalist service, Krishna Espinal, who agrees to accept the patient in transfer. Surgical service will continue to follow patient manage gastrointestinal tract function. (2) Metabolic acidosis Is this a current diagnosis for this admission?: Yes (3) Acute renal failure (ARF) Qualifiers: Acute renal failure type: with acute tubular necrosis Qualified Code(s): N17.0 - Acute kidney failure with tubular necrosis Is this a current diagnosis for this admission?: Yes (4) Jaundice Is this a current diagnosis for this admission?: Yes (5) Sepsis Qualifiers: Sepsis type: sepsis due to unspecified organism Sepsis acute organ dysfunction status: with acute organ dysfunction Severe sepsis acute organ dysfunction type: acute renal failure Acute renal failure type: unspecified Severe sepsis shock status: unspecified Qualified Code(s): A41.9 - Sepsis, unspecified organism; R65.20 - Severe sepsis without septic shock; N17.9 - Acute kidney failure, unspecified Is this a current diagnosis for this admission?: Yes - Time Time Spent: 30 to 50 Minutes
[2019-12-21 09:48] LABS: HEMATOCRIT 26.6 % (37.9-51.0); HEMOGLOBIN 8.9 g/dL (13.5-17.0); MEAN CORPUSCULAR HEMOGLOBIN 29.8 pg (27.0-33.4); MEAN CORPUSCULAR HGB CONC 33.6 g/dL (32.0-36.0); MEAN CORPUSCULAR VOLUME 89 fl (80-97); PLATELET COUNT 104 10^3/uL (150-450); RED CELL DISTRIBUTION WIDTH 20.7 % (11.5-14.0); WHITE BLOOD COUNT 12.4 10^3/uL (4.0-10.5)
[2019-12-21 10:02] LABS: ALBUMIN 2.7 g/dL (3.5-5.0); ALKALINE PHOSPHATASE 498 U/L (38-126); ASPARTATE AMINO TRANSFERASE 40 U/L (17-59); BILIRUBIN,DIRECT 0.8 mg/dL (0.0-0.4); BILIRUBIN,TOTAL 1.4 mg/dL (0.2-1.3); BLOOD UREA NITROGEN 30 mg/dL (7-20); CALCIUM 7.4 mg/dL (8.4-10.2); CHLORIDE 116 mmol/L (98-107); GLUCOSE 120 mg/dL (75-110); POTASSIUM 3.9 mmol/L (3.6-5.0); TOTAL PROTEIN 6.4 g/dL (6.3-8.2)
[2019-12-21 10:07] LABS: CARBON DIOXIDE 32 mmol/L (22-30)
[2019-12-21] MEDS: ENOXAPARIN SODIUM INJ 40 MG/0.4 ML DISP.SYRIN SUBCUT SCH (10:09)
[2019-12-21] MEDS: MEROPENEM 1 GM in NORMAL SALINE 50 ML IV SCH ×2 (10:09→21:56)
[2019-12-21 10:10] LABS: ANION GAP 1 (5-19)
[2019-12-21 10:23] LABS: ABSOLUTE LYMPHOCYTES# (MANUAL) 2.1 10^3/uL (0.5-4.7); ABSOLUTE MONOCYTES # (MANUAL) 0.1 10^3/uL (0.1-1.4); BASOPHILS % (MANUAL) 0 % (0-2); EOSINOPHILS % (MANUAL) 1 % (0-6); LYMPHOCYTES % (MANUAL) 17 % (13-45); MONOCYTES % (MANUAL) 1 % (3-13); SEGMENTED NEUTROPHILS % (MAN) 81 % (42-78); TOTAL CELLS COUNTED 100
[2019-12-21 10:25] LABS: ANISOCYTOSIS 2+; PLATELET COMMENT DECREASED
--- NOTE | 2019-12-21 12:42 | PDOC CONSULTATION ---
Consultation Consult Date: 12/21/19 Attending physician:: YULI CLAY Provider Consulted: BRODY MORRIS JR Consult reason:: Medical management History of Present Illness Admission Date/PCP: 12/14/19 16:11 History of Present Illness: ROCCO PADRON is a 69 year old male admitted through the emergency room on 12/14/2019 abdominal pain and abdominal distention with shortness of breath. Patient appeared to have a large bowel obstruction secondary to a volvulus. Pat mt was taken to the OR he is now 6 days postop and we were asked if we could medically manage the patient. Surgery will continue to consult on a regular basis concerning his postoperative care. Admission patient appeared to be septic, as well as acute kidney injury, jaundice, hypotension, metabolic acidosis, altered mental status On 12/15/2019 the patient went to the OR where a laparotomy with sigmoid colectomy, Teague's pouch and left colostomy was performed. Estimated blood loss 75 cc. 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 Since that time patient has been in the ICU and was transferred to the floor yesterday. We were asked to see the patient in consultation and to assume medical management today. Yesterday's note by the architecture department chair listed his problems as delirium secondary to other medical conditions, sigmoid volvulus that has resolved with surgery, acute tubular necrosis which is resolved, jaundice which is improving, hyper natremia which is improving. Even today patient continues to be a poor historian and appears either demented or confused Past Medical History Past Medical History: Unknown due to patient being a poor historian Social History Smoking Status: Unknown if Ever Smoked Family History Family History: None, Reviewed & Not Pertinent Parental Family History Reviewed: No Children Family History Reviewed: No Sibling(s) Family History Reviewed.: No Medication/Allergy Home Medications: No Home Medications 12/17/19 Allergies/Adverse Reactions: No Known Allergies Allergy (Verified 12/14/19 15:43) Review of Systems ROS unobtainable: Due to mental status Physical Exam Vital Signs: Temp Pulse Resp BP Pulse Ox 97.6 F 110 H 18 122/71 95 12/21/19 08:00 12/21/19 08:00 12/21/19 08:00 12/21/19 08:00 12/21/19 08:00 Intake & Output 12/20/19 12/21/19 12/22/19 06:59 06:59 06:59 Intake Total 1406 4051 Output Total 2590 2980 Balance -1184 1071 Weight 54.7 kg 54.7 kg 54.7 kg General appearance: PRESENT: no acute distress, other - Patient is awake alert sitting up in bed with an NG tube present Respiratory exam: PRESENT: clear to auscultation aldair. ABSENT: rales, rhonchi, wheezes Cardiovascular exam: PRESENT: RRR. ABSENT: diastolic murmur, rubs, systolic murmur GI/Abdominal exam: PRESENT: other - Deferred to surgery Neurological exam: PRESENT: alert, awake, other - Patient was unable to answer simple questions concerning orientation Psychiatric exam: PRESENT: unusual affect, other - Probably due to dementia Results Laboratory Results: 12/21/19 09:31 12/21/19 09:31 12/21/19 12/21/19 09:31 09:31 WBC 12.4 H RBC 3.00 L Hgb 8.9 L Hct 26.6 L MCV 89 MCH 29.8 MCHC 33.6 RDW 20.7 H Plt Count 104 L Seg Neutrophils % Not Reportable Sodium 149.4 H Potassium 3.9 Chloride 116 H Carbon Dioxide 32 H Anion Gap 1 L BUN 30 H Creatinine 1.00 Est GFR ( Amer) > 60 Glucose 120 H Calcium 7.4 L Total Bilirubin 1.4 H AST 40 Alkaline Phosphatase 498 H Total Protein 6.4 Albumin 2.7 L 12/14/19 12/14/19 14:24 14:24 Creatine Kinase 32 L Troponin I < 0.012 NT-Pro-B Natriuret Pep 1240 H Impressions: Abdomen/Pelvis CT 12/14/19 00:00 IMPRESSION: 1. Massively dilated stool-filled redundant sigmoid colon. Distention also extends to involve the descending colon. While sigmoid volvulus remains in the differential, it is felt to be less likely as a clear point of twisting or fixed obstruction is not identified. 2. Mild ascites. KUB X-Ray 12/14/19 15:01 IMPRESSION: Marked urinary bladder distention Distended tortuous sigmoid colon worrisome for sigmoid volvulus Chest X-Ray 12/16/19 04:51 IMPRESSION: Stable chest status post extubation. Assessment and Plan - Diagnosis (1) Tachycardia Is this a current diagnosis for this admission?: Yes (2) Acute renal failure (ARF) Qualifiers: Acute renal failure type: with acute tubular necrosis Qualified Code(s): N17.0 - Acute kidney failure with tubular necrosis Is this a current diagnosis for this admission?: Yes (3) Delirium due to another medical condition, acute, hypoactive Is this a current diagnosis for this admission?: Yes (4) Hypernatremia Is this a current diagnosis for this admission?: Yes (5) Jaundice Is this a current diagnosis for this admission?: Yes (6) Leukocytosis Qualifiers: Leukocytosis type: leukemoid reaction Qualified Code(s): D72.823 - Leukemoid reaction Is this a current diagnosis for this admission?: Yes (7) Metabolic acidosis Is this a current diagnosis for this admission?: Yes (8) Sepsis Qualifiers: Sepsis type: sepsis due to unspecified organism Sepsis acute organ dysfunct ion status: with acute organ dysfunction Severe sepsis acute organ dysfunction type: acute renal failure Acute renal failure type: unspecified Severe sepsis shock status: unspecified Qualified Code(s): A41.9 - Sepsis, unspecified organism; R65.20 - Severe sepsis without septic shock; N17.9 - Acute kidney failure, unspecified Is this a current diagnosis for this admission?: Yes (9) Sigmoid volvulus Is this a current diagnosis for this admission?: Yes - Plan Summary Summary: 12/21/2019 Vital signs today show the patient to be afebrile temperature 97.6 pulse is 110 although has been as high as 128 oxygen saturation is 95% on room air Blood pressure appears stable at 109/72. Baseline blood pressure appears to be 110/70 On admission his sodium was 135 it went up as high as 160 it is now down to 149 Potassium on admission was 4.9 it went down to 2.8 it is now stable at 3.9 When patient was admitted his BUN was 217, yesterday was 50 today it is 30 Admission his creatinine was 22.36, yesterday is 1.42 today it is 1.0 Blood sugars appear to be running in the low 100s calcium 7.4 with albumin 2.7 Alkaline phos on admission was 721 it went down to 292 now is back up to 498 Pertinent medications at this time include sliding scale of insulin, meropenem every 12 hours which is actually scheduled in today Patient has D5 half-normal saline with 20 of K running at 100 cc/h. Going to changes to D5W with 20 of K at 125 an hour We will be glad to assume medical management of patient. - Time Time Spent with patient: 35 or more minutes
[2019-12-21] MEDS: DEXTROSE 5%-WATER 1000 ML 1,000 ML with POTASSIUM CHLORIDE 20 MEQ IV PRN ×2 (15:10)
[2019-12-21] MEDS ORDERED: LORAZEPAM 1 MG TABLET PO ONE (17:45)
[2019-12-21] MEDS: FINASTERIDE 5 MG TABLET PO SCH (21:56)
[2019-12-22] MEDS: DEXTROSE 5%-WATER 1000 ML 1,000 ML with POTASSIUM CHLORIDE 20 MEQ IV PRN ×6 (01:03→18:56)
[2019-12-22] MEDS: INSULIN REG, HUMAN 100 UNIT/ML 3 ML VIAL (PYX) SUBCUT SCH ×5 (03:35→23:30)
[2019-12-22] MEDS: MEROPENEM 1 GM in NORMAL SALINE 50 ML IV SCH ×2 (09:39→21:28)
[2019-12-22] MEDS: ENOXAPARIN SODIUM INJ 40 MG/0.4 ML DISP.SYRIN SUBCUT SCH (09:39)
[2019-12-22 09:40] LABS: ALBUMIN 2.7 g/dL (3.5-5.0); ALKALINE PHOSPHATASE 544 U/L (38-126); ASPARTATE AMINO TRANSFERASE 35 U/L (17-59); BILIRUBIN,DIRECT 0.5 mg/dL (0.0-0.4); BLOOD UREA NITROGEN 23 mg/dL (7-20); CALCIUM 7.4 mg/dL (8.4-10.2); GLUCOSE 105 mg/dL (75-110); POTASSIUM 3.6 mmol/L (3.6-5.0); TOTAL PROTEIN 6.3 g/dL (6.3-8.2)
[2019-12-22 09:45] LABS: CARBON DIOXIDE 34 mmol/L (22-30); CHLORIDE 110 mmol/L (98-107)
[2019-12-22 09:46] LABS: ANION GAP 2 (5-19)
--- NOTE | 2019-12-22 09:55 | PDOC PROGRESS REPORT ---
Subjective Progress Note for:: 12/22/19 Subjective:: feels ok Reason For Visit: BOWEL OBSTRUCTION Physical Exam Vital Signs: Temp Pulse Resp BP Pulse Ox 97.9 F 67 20 114/66 95 12/22/19 08:00 12/22/19 08:00 12/22/19 09:26 12/22/19 08:00 12/22/19 08:00 Intake & Output 12/21/19 12/22/19 12/23/19 06:59 06:59 06:59 Intake Total 4051 1100 1000 Output Total 2980 1830 Balance 1071 -730 1000 Weight 54.7 kg 54.7 kg General appearance: PRESENT: disheveled, thin Head exam: PRESENT: atraumatic Eye exam: PRESENT: EOMI Mouth exam: PRESENT: dry mucosa Neck exam: PRESENT: full ROM Respiratory exam: PRESENT: clear to auscultation aldair Cardiovascular exam: PRESENT: RRR Pulses: PRESENT: normal radial pulses, normal femoral pulses Vascular exam: PRESENT: normal capillary refill GI/Abdominal exam: PRESENT: soft, other - stoma pink digitalized with hard dry stool noted. Rectal exam: PRESENT: deferred Extremities exam: PRESENT: full ROM Musculoskeletal exam: PRESENT: full ROM Neurological exam: PRESENT: alert, awake, oriented to place Psychiatric exam: PRESENT: flat affect Skin exam: PRESENT: dry Results Laboratory Results: 12/22/19 09:05 12/21/19 12/21/19 12/22/19 09:31 09:31 09:05 WBC 12.4 H RBC 3.00 L Hgb 8.9 L Hct 26.6 L MCV 89 MCH 29.8 MCHC 33.6 RDW 20.7 H Plt Count 104 L Seg Neutrophils % Not Reportable Sodium 149.4 H Potassium 3.9 Chloride 116 H Carbon Dioxide 32 H Anion Gap 1 L BUN 30 H Creatinine 1.00 Est GFR ( Amer) > 60 Glucose 120 H Calcium 7.4 L Total Bilirubin 1.4 H AST 40 Alkaline Phosphatase 498 H Ammonia < 8.7 L Total Protein 6.4 Albumin 2.7 L 12/22/19 09:05 WBC RBC Hgb Hct MCV MCH MCHC RDW Plt Count Seg Neutrophils % Sodium 145.6 H Potassium 3.6 Chloride 110 H Carbon Dioxide 34 H Anion Gap 2 L BUN 23 H Creatinine 0.89 Est GFR ( Amer) > 60 Glucose 105 Calcium 7.4 L Total Bilirubin 1.0 AST 35 Alkaline Phosphatase 544 H Ammonia Total Protein 6.3 Albumin 2.7 L 12/14/19 12/14/19 14:24 14:24 Creatine Kinase 32 L Troponin I < 0.012 NT-Pro-B Natriuret Pep 1240 H Impressions: Abdomen/Pelvis CT 12/14/19 00:00 IMPRESSION: 1. Massively dilated stool-filled redundant sigmoid colon. Distention also extends to involve the descending colon. While sigmoid volvulus remains in the differential, it is felt to be less likely as a clear point of twisting or fixed obstruction is not identified. 2. Mild ascites. KUB X-Ray 12/14/19 15:01 IMPRESSION: Marked urinary bladder distention Distended tortuous sigmoid colon worrisome for sigmoid volvulus Chest X-Ray 12/16/19 04:51 IMPRESSION: Stable chest status post extubation. Assessment & Plan - Plan Summary Plan Summary: s/p sigmoid colectomy for ischemia still awaiting return of bowel function hypernatremic, followed by medicine still with high ng op stoma digitalized this am and is open with hard dry stool noted plan cont ng correcting dehydrated state out of bed.
[2019-12-22 09:59] LABS: ABSOLUTE EOSINOPHILS # (AUTO) 0.1 10^3/uL (0.0-0.6); ABSOLUTE LYMPHOCYTES (AUTO) 1.3 10^3/uL (0.5-4.7); ABSOLUTE MONOCYTES (AUTO) 0.5 10^3/uL (0.1-1.4); ABSOLUTE NEUT (AUTO) 12.6 10^3/uL (1.7-8.2); BASOPHILS % (AUTO) 0.2 % (0-2); EOSINOPHILS % (AUTO) 0.6 % (0-6); HEMATOCRIT 23.5 % (37.9-51.0); MEAN CORPUSCULAR HEMOGLOBIN 29.7 pg (27.0-33.4); MEAN CORPUSCULAR HGB CONC 32.9 g/dL (32.0-36.0); MEAN CORPUSCULAR VOLUME 90 fl (80-97); MONOCYTES % (AUTO) 3.8 % (3-13); RED CELL DISTRIBUTION WIDTH 19.9 % (11.5-14.0); SEGMENTED NEUTROPHILS % (AUTO) 86.4 % (42-78); TOTAL CELLS COUNTED % (AUTO) 100 %; WHITE BLOOD COUNT 14.6 10^3/uL (4.0-10.5)
[2019-12-22 10:27] LABS: HEMOGLOBIN 7.7 g/dL (13.5-17.0); PLATELET COUNT 91 10^3/uL (150-450)
--- NOTE | 2019-12-22 10:27 | PDOC PROGRESS REPORT ---
Subjective Progress Note for:: 12/22/19 Reason For Visit: BOWEL OBSTRUCTION 12/22/19 She admitted for sigmoid volvulus with bowel obstruction. Medical management includes sepsis, acute kidney injury, hypotension ,metabolic acidosis ,and altered mental status Physical Exam Vital Signs: Temp Pulse Resp BP Pulse Ox 97.9 F 67 20 114/66 95 12/22/19 08:00 12/22/19 08:00 12/22/19 09:26 12/22/19 08:00 12/22/19 08:00 Intake & Output 12/21/19 12/22/19 12/23/19 06:59 06:59 06:59 Intake Total 4051 1100 1000 Output Total 2980 1830 Balance 1071 -730 1000 Weight 54.7 kg 54.7 kg General appearance: PRESENT: no acute distress, other - Patient still confused at times refusing medications and lab venipunctures Respiratory exam: PRESENT: clear to auscultation aldair. ABSENT: rales, rhonchi, wheezes Cardiovascular exam: PRESENT: RRR. ABSENT: diastolic murmur, rubs, systolic murmur GI/Abdominal exam: PRESENT: other - Deferred to GI. NG-tube draining greenish liquid Neurological exam: PRESENT: alert, awake, other - Patient is disoriented x4 Psychiatric exam: PRESENT: unusual affect - Patient's psychiatric evaluation oscillates between being pleasant and friendly to being somewhat recluse and anxious Results Laboratory Results: 12/22/19 09:05 12/21/19 12/22/19 12/22/19 09:31 09:05 09:05 WBC 12.4 H RBC 3.00 L Hgb 8.9 L Hct 26.6 L MCV 89 MCH 29.8 MCHC 33.6 RDW 20.7 H Plt Count 104 L Sodium 145.6 H Potassium 3.6 Chloride 110 H Carbon Dioxide 34 H Anion Gap 2 L BUN 23 H Creatinine 0.89 Est GFR ( Amer) > 60 Glucose 105 Calcium 7.4 L Total Bilirubin 1.0 AST 35 Alkaline Phosphatase 544 H Ammonia < 8.7 L Total Protein 6.3 Albumin 2.7 L 12/14/19 12/14/19 14:24 14:24 Creatine Kinase 32 L Troponin I < 0.012 NT-Pro-B Natriuret Pep 1240 H Impressions: Abdomen/Pelvis CT 12/14/19 00:00 IMPRESSION: 1. Massively dilated stool-filled redundant sigmoid colon. Distention also extends to involve the descending colon. While sigmoid volvulus remains in the differential, it is felt to be less likely as a clear point of twisting or fixed obstruction is not identified. 2. Mild ascites. KUB X-Ray 12/14/19 15:01 IMPRESSION: Marked urinary bladder distention Distended tortuous sigmoid colon worrisome for sigmoid volvulus Chest X-Ray 12/16/19 04:51 IMPRESSION: Stable chest status post extubation. Assessment and Plan - Diagnosis (1) Tachycardia Is this a current diagnosis for this admission?: Yes (2) Acute renal failure (ARF) Qualifiers: Acute renal failure type: with acute tubular necrosis Qualified Code(s): N17.0 - Acute kidney failure with tubular necrosis Is this a current diagnosis for this admission?: Yes (3) Delirium due to another medical condition, acute, hypoactive Is this a current diagnosis for this admission?: Yes (4) Hypernatremia Is this a current diagnosis for this admission?: Yes (5) Jaundice Is this a current diagnosis for this admission?: Yes (6) Leukocytosis Qualifiers: Leukocytosis type: leukemoid reaction Qualified Code(s): D72.823 - Leukemoid reaction Is this a current diagnosis for this admission?: Yes (7) Metabolic acidosis Is this a current diagnosis for this admission?: Yes (8) Sepsis Qualifiers: Sepsis type: sepsis due to unspecified organism Sepsis acute organ dysfunction status: with acute organ dysfunction Severe sepsis acute organ dysfunction type: acute renal failure Acute renal failure type: unspecified Severe sepsis shock status: unspecified Qualified Code(s): A41.9 - Sepsis, unspecified organism; R65.20 - Severe sepsis without septic shock; N17.9 - Acute kidney failure, unspecified Is this a current diagnosis for this admission?: Yes (9) Sigmoid volvulus Is this a current diagnosis for this admission?: Yes - Plan Summary Summary: 12/21/2019 Vital signs today show the patient to be afebrile temperature 97.6 pulse is 110 although has been as high as 128 oxygen saturation is 95% on room air Blood pressure appears stable at 109/72. Baseline blood pressure appears to be 110/70 On admission his sodium was 135 it went up as high as 160 it is now down to 149 Potassium on admission was 4.9 it went down to 2.8 it is now stable at 3.9 When patient was admitted his BUN was 217, yesterday was 50 today it is 30 Admission his creatinine was 22.36, yesterday is 1.42 today it is 1.0 Blood sugars appear to be running in the low 100s calcium 7.4 with albumin 2.7 Alkaline phos on admission was 721 it went down to 292 now is back up to 498 Pertinent medications at this time include sliding scale of insulin, meropenem every 12 hours which is actually scheduled in today Patient has D5 half-normal saline with 20 of K running at 100 cc/h. Going to changes to D5W with 20 of K at 125 an hour We will be glad to assume medical management of patient. 12/22/2019 Temperature 98.8 pulse between 101 120 blood pressure 134/63, 109/72 White count is down to 12,400 hemoglobin is stable at 8.9 Sodium is coming down now at 145 potassium stable 3.6 BUN of 2 creatinine 0.89 Ammonia level is normal less than 8.7 Patient is currently on fluid restriction and being followed by general surgery Other labs from this morning are pending I am going to check a hemoglobin A1c and also a TSH tomorrow morning I a.m. wondering if patient's mental status is close to baseline and what his level was prior to admission. There seems to be an element of dementia - Time Time Spent with patient: 25-34 minutes
[2019-12-22] MEDS: DEXTROSE 50%-WATER 25 GM/50 ML DISP.SYRIN IV PRN (10:39)
[2019-12-22] MEDS: FINASTERIDE 5 MG TABLET PO SCH (21:28)
[2019-12-23] MEDS: DEXTROSE 5%-WATER 1000 ML 1,000 ML with POTASSIUM CHLORIDE 20 MEQ IV PRN ×2 (04:13)
[2019-12-23 06:17] LABS: HEMOGLOBIN 7.7 g/dL (13.5-17.0); MEAN CORPUSCULAR HEMOGLOBIN 29.6 pg (27.0-33.4); MEAN CORPUSCULAR HGB CONC 33.3 g/dL (32.0-36.0); MEAN CORPUSCULAR VOLUME 89 fl (80-97); RED BLOOD COUNT 2.58 10^6/uL (4.35-5.55); RED CELL DISTRIBUTION WIDTH 19.7 % (11.5-14.0); WHITE BLOOD COUNT 13.7 10^3/uL (4.0-10.5)
[2019-12-23 06:26] LABS: PLATELET COUNT 99 10^3/uL (150-450)
[2019-12-23] MEDS: INSULIN REG, HUMAN 100 UNIT/ML 3 ML VIAL (PYX) SUBCUT SCH ×3 (07:20→18:56)
[2019-12-23 07:32] LABS: BLOOD UREA NITROGEN 21 mg/dL (7-20); CALCIUM 7.3 mg/dL (8.4-10.2); GLUCOSE 99 mg/dL (75-110); POTASSIUM 3.6 mmol/L (3.6-5.0)
[2019-12-23 07:38] LABS: CARBON DIOXIDE 31 mmol/L (22-30); CHLORIDE 105 mmol/L (98-107)
[2019-12-23 07:50] LABS: ANION GAP 4 (5-19)
--- NOTE | 2019-12-23 08:00 | PDOC PROGRESS REPORT ---
Subjective Progress Note for:: 12/23/19 Reason For Visit: BOWEL OBSTRUCTION Patient is postoperative day 8 status post exporter laparotomy, sigmoid colectomy, colostomy and Teague's procedure, on the floor, less nasogastric tube drainage, low urine output, walk to the [place] [facility] yesterday. Physical Exam Vital Signs: Temp Pulse Resp BP Pulse Ox 97.8 F 92 16 96/55 L 94 12/23/19 00:30 12/23/19 00:30 12/23/19 00:30 12/23/19 00:30 12/23/19 00:30 Intake & Output 12/22/19 12/23/19 12/24/19 06:59 06:59 06:59 Intake Total 1100 3190 Output Total 1830 2525 Balance -730 665 Weight 54.7 kg 54.7 kg General appearance: PRESENT: no acute distress GI/Abdominal exam: PRESENT: other - Bilious nasogastric drainage. The abdomen is soft, not distended no tenderness no peritoneal signs. Colostomy bag with gas minimal liquid stool Results Laboratory Results: 12/23/19 04:53 12/23/19 04:53 12/22/19 12/22/19 12/22/19 09:05 09:05 09:05 WBC 14.6 H RBC 2.60 L Hgb 7.7 L Hct 23.5 L MCV 90 MCH 29.7 MCHC 32.9 RDW 19.9 H Plt Count 91 L Seg Neutrophils % 86.4 H Sodium 145.6 H Potassium 3.6 Chloride 110 H Carbon Dioxide 34 H Anion Gap 2 L BUN 23 H Creatinine 0.89 Est GFR ( Amer) > 60 Glucose 105 Calcium 7.4 L Total Bilirubin 1.0 AST 35 Alkaline Phosphatase 544 H Ammonia < 8.7 L Total Protein 6.3 Albumin 2.7 L 12/23/19 12/23/19 12/23/19 04:53 04:53 04:53 WBC 13.7 H Cancelled RBC 2.58 L Cancelled Hgb 7.7 L Cancelled Hct 23.0 L Cancelled MCV 89 Cancelled MCH 29.6 Cancelled MCHC 33.3 Cancelled RDW 19.7 H Cancelled Plt Count 99 L Cancelled Seg Neutrophils % Cancelled Sodium 139.8 Potassium 3.6 Chloride 105 Carbon Dioxide 31 H Anion Gap 4 L BUN 21 H Creatinine 0.74 Est GFR ( Amer) > 60 Glucose 99 Calcium 7.3 L Total Bilirubin AST Alkaline Phosphatase Ammonia Total Protein Albumin 12/14/19 12/14/19 14:24 14:24 Creatine Kinase 32 L Troponin I < 0.012 NT-Pro-B Natriuret Pep 1240 H Impressions: Abdomen/Pelvis CT 12/14/19 00:00 IMPRESSION: 1. Massively dilated stool-filled redundant sigmoid colon. Distention also extends to involve the descending colon. While sigmoid volvulus remains in the differential, it is felt to be less likely as a clear point of twisting or fixed obstruction is not identified. 2. Mild ascites. KUB X-Ray 12/14/19 15:01 IMPRESSION: Marked urinary bladder distention Distended tortuous sigmoid colon worrisome for sigmoid volvulus Chest X-Ray 12/16/19 04:51 IMPRESSION: Stable chest status post extubation. Assessment & Plan - Diagnosis (1) Sigmoid volvulus Is this a current diagnosis for this admission?: Yes Plan: Impression: Resolving ileus 69-year-old male 1 week status post exploratory laparotomy, colectomy, colostomy; multiple comorbidities doing recovery. All laboratory parameters improving. Low urine output overnight Recommendations: 1. We will give fluid bolus morning. 2. Hopefully can clamp NG tube later today and eventually remove 3. Increase physical activity. (2) Metabolic acidosis Is this a current diagnosis for this admission?: Yes (3) Acute renal failure (ARF) Qualifiers: Acute renal failure type: with acute tubular necrosis Qualified Code(s): N17.0 - Acute kidney failure with tubular necrosis Is this a current diagnosis for this admission?: Yes (4) Jaundice Is this a current diagnosis for this admission?: Yes (5) Sepsis Qualifiers: Sepsis type: sepsis due to unspecified organism Sepsis acute organ dysfunction status: with acute organ dysfunction Severe sepsis acute organ dysfunction type: acute renal failure Acute renal failure type: unspecified Severe sepsis shock status: unspecified Qualified Code(s): A41.9 - Sepsis, unspecified organism; R65.20 - Severe sepsis without septic shock; N17.9 - Acute kidney failure, unspecified Is this a current diagnosis for this admission?: Yes
[2019-12-23 08:10] LABS: ABSOLUTE LYMPHOCYTES# (MANUAL) 1.5 10^3/uL (0.5-4.7); ABSOLUTE MONOCYTES # (MANUAL) 0.5 10^3/uL (0.1-1.4); BASOPHILS % (MANUAL) 0 % (0-2); EOSINOPHILS % (MANUAL) 1 % (0-6); LYMPHOCYTES % (MANUAL) 11 % (13-45); MONOCYTES % (MANUAL) 4 % (3-13); SEGMENTED NEUTROPHILS % (MAN) 84 % (42-78); TOTAL CELLS COUNTED 100
[2019-12-23 08:12] LABS: ANISOCYTOSIS 2+; OVALOCYTES SLIGHT; PLATELET COMMENT DECREASED; POLYCHROMASIA 1+; TOXIC GRANULATION 1+
[2019-12-23] MEDS ORDERED: 1/2 NORMAL SALINE 500 ML IV ONE (08:15)
[2019-12-23] MEDS ORDERED: NORMAL SALINE 1000 ML 500 ML IV ONE (08:15)
[2019-12-23] MEDS ORDERED: NORMAL SALINE 250 ML IV PRN ×2 (08:54)
[2019-12-23] MEDS: ENOXAPARIN SODIUM INJ 40 MG/0.4 ML DISP.SYRIN SUBCUT SCH (09:06)
--- NOTE | 2019-12-23 09:26 | PDOC PROGRESS REPORT ---
Subjective Progress Note for:: 12/23/19 Reason For Visit: BOWEL OBSTRUCTION 12/23/2019 Patient was admitted with a sigmoid volvulus and is now being managed for acute kidney injury hypotension metabolic acidosis altered mental status and sepsis Physical Exam Vital Signs: Temp Pulse Resp BP Pulse Ox 97.8 F 92 16 96/55 L 94 12/23/19 00:30 12/23/19 00:30 12/23/19 00:30 12/23/19 00:30 12/23/19 00:30 Intake & Output 12/22/19 12/23/19 12/24/19 06:59 06:59 06:59 Intake Total 1100 3190 Output Total 1830 2525 Balance -730 665 Weight 54.7 kg 54.7 kg General appearance: PRESENT: no acute distress Respiratory exam: PRESENT: clear to auscultation aldair. ABSENT: rales, rhonchi, wheezes Cardiovascular exam: PRESENT: RRR. ABSENT: diastolic murmur, rubs, systolic murmur Neurological exam: PRESENT: alert, altered, awake, CN II-XII grossly intact. ABSENT: motor sensory deficit Psychiatric exam: PRESENT: unusual affect Results Laboratory Results: 12/23/19 04:53 12/23/19 04:53 12/22/19 12/22/19 12/22/19 09:05 09:05 09:05 WBC 14.6 H RBC 2.60 L Hgb 7.7 L Hct 23.5 L MCV 90 MCH 29.7 MCHC 32.9 RDW 19.9 H Plt Count 91 L Seg Neutrophils % 86.4 H Sodium 145.6 H Potassium 3.6 Chloride 110 H Carbon Dioxide 34 H Anion Gap 2 L BUN 23 H Creatinine 0.89 Est GFR ( Amer) > 60 Glucose 105 Calcium 7.4 L Total Bilirubin 1.0 AST 35 Alkaline Phosphatase 544 H Ammonia < 8.7 L Total Protein 6.3 Albumin 2.7 L 12/23/19 12/23/19 12/23/19 04:53 04:53 04:53 WBC 13.7 H Cancelled RBC 2.58 L Cancelled Hgb 7.7 L Cancelled Hct 23.0 L Cancelled MCV 89 Cancelled MCH 29.6 Cancelled MCHC 33.3 Cancelled RDW 19.7 H Cancelled Plt Count 99 L Cancelled Seg Neutrophils % Not Reportable Cancelled Sodium 139.8 Potassium 3.6 Chloride 105 Carbon Dioxide 31 H Anion Gap 4 L BUN 21 H Creatinine 0.74 Est GFR ( Amer) > 60 Glucose 99 Calcium 7.3 L Total Bilirubin AST Alkaline Phosphatase Ammonia Total Protein Albumin 12/14/19 12/14/19 14:24 14:24 Creatine Kinase 32 L Troponin I < 0.012 NT-Pro-B Natriuret Pep 1240 H Impressions: Abdomen/Pelvis CT 12/14/19 00:00 IMPRESSION: 1. Massively dilated stool-filled redundant sigmoid colon. Distention also extends to involve the descending colon. While sigmoid volvulus remains in the differential, it is felt to be less likely as a clear point of twisting or fixed obstruction is not identified. 2. Mild ascites. KUB X-Ray 12/14/19 15:01 IMPRESSION: Marked urinary bladder distention Distended tortuous sigmoid colon worrisome for sigmoid volvulus Chest X-Ray 12/16/19 04:51 IMPRESSION: Stable chest status post extubation. Assessment and Plan - Diagnosis (1) Tachycardia Is this a current diagnosis for this admission?: Yes (2) Acute renal failure (ARF) Qualifiers: Acute renal failure type: with acute tubular necrosis Qualified Code(s): N17.0 - Acute kidney failure with tubular necrosis Is this a current diagnosis for this admission?: Yes (3) Delirium due to another medical condition, acute, hypoactive Is this a current diagnosis for this admission?: Yes (4) Hypernatremia Is this a current diagnosis for this admission?: Yes (5) Jaundice Is this a current diagnosis for this admission?: Yes (6) Leukocytosis Qualifiers: Leukocytosis type: leukemoid reaction Qualified Code(s): D72.823 - Leukemoid reaction Is this a current diagnosis for this admission?: Yes (7) Metabolic acidosis Is this a current diagnosis for this admission?: Yes (8) Sepsis Qualifiers: Sepsis type: sepsis due to unspecified organism Sepsis acute organ dysfunction status: with acute organ dysfunction Severe sepsis acute organ dysfunction type: acute renal failure Acute renal failure type: unspecified Severe sepsis shock status: unspecified Qualified Code(s): A41.9 - Sepsis, unspecified organism; R65.20 - Severe sepsis without septic shock; N17.9 - Acute kidney failure, unspecified Is this a current diagnosis for this admission?: Yes (9) Sigmoid volvulus Is this a current diagnosis for this admission?: Yes - Plan Summary Summary: 12/21/2019 Vital signs today show the patient to be afebrile temperature 97.6 pulse is 110 although has been as high as 128 oxygen saturation is 95% on room air Blood pressure appears stable at 109/72. Baseline blood pressure appears to be 110/70 On admission his sodium was 135 it went up as high as 160 it is now down to 149 Potassium on admission was 4.9 it went down to 2.8 it is now stable at 3.9 When patient was admitted his BUN was 217, yesterday was 50 today it is 30 Admission his creatinine was 22.36, yesterday is 1.42 today it is 1.0 Blood sugars appear to be running in the low 100s calcium 7.4 with albumin 2.7 Alkaline phos on admission was 721 it went down to 292 now is back up to 498 Pertinent medications at this time include sliding scale of insulin, meropenem every 12 hours which is actually scheduled in today Patient has D5 half-normal saline with 20 of K running at 100 cc/h. Going to changes to D5W with 20 of K at 125 an hour We will be glad to assume medical management of patient. 12/22/2019 Temperature 98.8 pulse between 101 120 blood pressure 134/63, 109/72 White count is down to 12,400, hemoglobin is at 7.7, however it is been at this level before, we will simply watch Sodium is coming down now at 145 potassium stable 3.6 BUN of 2 creatinine 0.89 Ammonia level is normal less than 8.7 Patient is currently on fluid restriction and being followed by general surgery Other labs from this morning are pending I am going to check a hemoglobin A1c and also a TSH tomorrow morning I a.m. wondering if patient's mental status is close to baseline and what his level was prior to admission. There seems to be an element of dementia 12/23/2019 Temp 97 8, pulse 92 , blood pressure this morning 96/55 but normally is 114/66. Oxygen saturation 94% on room air Potassium is still 3.6, going to add p.o. potassium, sodium is coming down nicely 139, creatinine is coming down it is now 0.74 Patient now appears to be eating and drinking early Patient's hemoglobin on 12/18 was 7.6 then on it was 8.9 and today it is down to 7.7 I have ordered 2 units of packed red blood cells to increase his energy level and see if he responds better to treatments White blood cell count is staying around 13 Patient is still pleasantly altered and is probably at his baseline for dementia Patient is going to need halfway facility at the time of discharge Patient is currently on meropenem. Patient's main medical problems now include nutritional status, dementia, electrolyte imbalance, anemia due to chronic disease. - Time Time Spent with patient: 25-34 minutes
[2019-12-23] MEDS: MEROPENEM 1 GM in NORMAL SALINE 50 ML IV SCH (10:35)
[2019-12-23] MEDS: DEXTROSE 50%-WATER 25 GM/50 ML DISP.SYRIN IV PRN (10:52)
[2019-12-23 15:17] LABS: APPEARANCE,URINE SLIGHTLY-CLOUDY; BILIRUBIN,URINE NEGATIVE (NEGATIVE); GLUCOSE, URINE 50 mg/dL (NEGATIVE); KETONES,URINE NEGATIVE (NEGATIVE); LEUKOCYTE ESTERASE,URINE NEGATIVE (NEGATIVE); NITRITE,URINE NEGATIVE (NEGATIVE); PROTEIN,URINE 100 mg/dL (NEGATIVE); URINE SPECIFIC GRAVITY 1.023
[2019-12-23 15:20] LABS: COLOR,URINE DARK YELLOW
[2019-12-23] MEDS: FINASTERIDE 5 MG TABLET PO SCH (21:21)
[2019-12-24] MEDS: INSULIN REG, HUMAN 100 UNIT/ML 3 ML VIAL (PYX) SUBCUT SCH ×4 (00:20→18:13)
[2019-12-24 02:32] LABS: ABSOLUTE LYMPHOCYTES (AUTO) 1.4 10^3/uL (0.5-4.7); ABSOLUTE MONOCYTES (AUTO) 0.8 10^3/uL (0.1-1.4); ABSOLUTE NEUT (AUTO) 9.3 10^3/uL (1.7-8.2); BASOPHILS % (AUTO) 0.3 % (0-2); EOSINOPHILS % (AUTO) 0.4 % (0-6); HEMATOCRIT 29.1 % (37.9-51.0); LYMPHOCYTES % (AUTO) 12.1 % (13-45); MEAN CORPUSCULAR HEMOGLOBIN 29.9 pg (27.0-33.4); MEAN CORPUSCULAR HGB CONC 34.4 g/dL (32.0-36.0); MEAN CORPUSCULAR VOLUME 87 fl (80-97); MONOCYTES % (AUTO) 6.6 % (3-13); PLATELET COUNT 109 10^3/uL (150-450); RED BLOOD COUNT 3.35 10^6/uL (4.35-5.55); RED CELL DISTRIBUTION WIDTH 17.8 % (11.5-14.0); SEGMENTED NEUTROPHILS % (AUTO) 80.6 % (42-78); TOTAL CELLS COUNTED % (AUTO) 100 %; WHITE BLOOD COUNT 11.5 10^3/uL (4.0-10.5)
[2019-12-24] MEDS: DEXTROSE 5%-WATER 1000 ML 1,000 ML with POTASSIUM CHLORIDE 20 MEQ IV PRN ×4 (07:39→16:05)
[2019-12-24 08:35] LABS: BLOOD UREA NITROGEN 16 mg/dL (7-20); CALCIUM 7.5 mg/dL (8.4-10.2); GLUCOSE 80 mg/dL (75-110); POTASSIUM 3.2 mmol/L (3.6-5.0)
[2019-12-24 08:40] LABS: CARBON DIOXIDE 31 mmol/L (22-30); CHLORIDE 102 mmol/L (98-107)
[2019-12-24 08:44] LABS: ANION GAP 4 (5-19)
[2019-12-24] MEDS: ENOXAPARIN SODIUM INJ 40 MG/0.4 ML DISP.SYRIN SUBCUT SCH (09:15)
--- NOTE | 2019-12-24 10:58 | PDOC PROGRESS REPORT ---
<LISA JON G - Last Filed: 12/24/19 10:54> Subjective Progress Note for:: 12/24/19 Reason For Visit: BOWEL OBSTRUCTION Physical Exam Vital Signs: Temp Pulse Resp BP Pulse Ox 98.2 F 83 16 106/62 100 12/23/19 22:59 12/23/19 22:59 12/23/19 22:59 12/23/19 22:59 12/23/19 22:59 Intake & Output 12/23/19 12/24/19 12/25/19 06:59 06:59 06:59 Intake Total 3190 1989 Output Total 2525 2100 Balance 665 -110 Weight 54.7 kg 56.9 kg Results Laboratory Results: 12/24/19 02:07 12/24/19 08:00 12/23/19 12/23/19 12/24/19 09:23 14:46 02:07 WBC 11.5 H RBC 3.35 L Hgb 10.0 L D Hct 29.1 L MCV 87 MCH 29.9 MCHC 34.4 RDW 17.8 H Plt Count 109 L Seg Neutrophils % 80.6 H Sodium Potassium Chloride Carbon Dioxide Anion Gap BUN Creatinine Est GFR ( Amer) Glucose Calcium Urine Color DARK YELLOW Urine Appearance SLIGHTLY-CLOUDY Urine pH 5.0 Ur Specific [place] 1.023 Urine Protein 100 H Urine Glucose (UA) 50 H Urine Ketones NEGATIVE Urine Blood MODERATE H Urine Nitrite NEGATIVE Ur Leukocyte Esterase NEGATIVE Urine WBC (Auto) 25 Urine RBC (Auto) 15 Blood Type B POSITIVE Antibody Screen NEGATIVE 12/24/19 08:00 WBC RBC Hgb Hct MCV MCH MCHC RDW Plt Count Seg Neutrophils % Sodium 136.5 L Potassium 3.2 L Chloride 102 Carbon Dioxide 31 H Anion Gap 4 L BUN 16 Creatinine 0.70 Est GFR ( Amer) > 60 Glucose 80 Calcium 7.5 L Urine Color Urine Appearance Urine pH Ur Specific [place] Urine Protein Urine Glucose (UA) Urine Ketones Urine Blood Urine Nitrite Ur Leukocyte Esterase Urine WBC (Auto) Urine RBC (Auto) Blood Type Antibody Screen 12/14/19 12/14/19 14:24 14:24 Creatine Kinase 32 L Troponin I < 0.012 NT-Pro-B Natriuret Pep 1240 H Impressions: Abdomen/Pelvis CT 12/14/19 00:00 IMPRESSION: 1. Massively dilated stool-filled redundant sigmoid colon. Distention also extends to involve the descending colon. While sigmoid volvulus remains in the differential, it is felt to be less likely as a clear point of twisting or fixed obstruction is not identified. 2. Mild ascites. KUB X-Ray 12/14/19 15:01 IMPRESSION: Marked urinary bladder distention Distended tortuous sigmoid colon worrisome for sigmoid volvulus Chest X-Ray 12/16/19 04:51 IMPRESSION: Stable chest status post extubation. Assessment & Plan - Diagnosis (1) Sepsis Qualifiers: Sepsis type: sepsis due to unspecified organism Sepsis acute organ dysfunc tion status: with acute organ dysfunction Severe sepsis acute organ dysfu nction type: acute renal failure Acute renal failure type: unspecified Severe sepsis shock status: unspecified Qualified Code(s): A41.9 - Sepsis, unspecified organism; R65.20 - Severe sepsis without septic shock; N17.9 - Acute kidney failure, unspecified Is this a current diagnosis for this admission?: Yes (2) Sigmoid volvulus Is this a current diagnosis for this admission?: Yes - Plan Summary Plan Summary: 69 yo male s/p Teague procedure for ischemic sigmoid colon, colostomy is productive, patient is doing well. NG tube removed at bedside by Dr. Wright. Start full liquid diet. Out of bed. Remove diaz. Surgery will continue to follow. <BUTCH WRIGHT - Last Filed: 12/24/19 11:53> Subjective Reason For Visit: BOWEL OBSTRUCTION Physical Exam Vital Signs: Temp Pulse Resp BP Pulse Ox 98.2 F 83 16 106/62 100 12/23/19 22:59 12/23/19 22:59 12/23/19 22:59 12/23/19 22:59 12/23/19 22:59 Intake & Output 12/23/19 12/24/19 12/25/19 06:59 06:59 06:59 Intake Total 3190 1990 Output Total 2525 2100 Balance 665 -110 Weight 54.7 kg 56.9 kg 56.9 kg Results Laboratory Results: 12/24/19 02:07 12/24/19 08:00 12/23/19 12/23/19 12/24/19 09:23 14:46 02:07 WBC 11.5 H RBC 3.35 L Hgb 10.0 L D Hct 29.1 L MCV 87 MCH 29.9 MCHC 34.4 RDW 17.8 H Plt Count 109 L Seg Neutrophils % 80.6 H Sodium Potassium Chloride Carbon Dioxide Anion Gap BUN Creatinine Est GFR ( Amer) Glucose Calcium Urine Color DARK YELLOW Urine Appearance SLIGHTLY-CLOUDY Urine pH 5.0 Ur Specific [place] 1.023 Urine Protein 100 H Urine Glucose (UA) 50 H Urine Ketones NEGATIVE Urine Blood MODERATE H Urine Nitrite NEGATIVE Ur Leukocyte Esterase NEGATIVE Urine WBC (Auto) 25 Urine RBC (Auto) 15 Blood Type B POSITIVE Antibody Screen NEGATIVE 12/24/19 08:00 WBC RBC Hgb Hct MCV MCH MCHC RDW Plt Count Seg Neutrophils % Sodium 136.5 L Potassium 3.2 L Chloride 102 Carbon Dioxide 31 H Anion Gap 4 L BUN 16 Creatinine 0.70 Est GFR ( Amer) > 60 Glucose 80 Calcium 7.5 L Urine Color Urine Appearance Urine pH Ur Specific [place] Urine Protein Urine Glucose (UA) Urine Ketones Urine Blood Urine Nitrite Ur Leukocyte Esterase Urine WBC (Auto) Urine RBC (Auto) Blood Type Antibody Screen 12/14/19 12/14/19 14:24 14:24 Creatine Kinase 32 L Troponin I < 0.012 NT-Pro-B Natriuret Pep 1240 H Impressions: Abdomen/Pelvis CT 12/14/19 00:00 IMPRESSION: 1. Massively dilated stool-filled redundant sigmoid colon. Distention also extends to involve the descending colon. While sigmoid volvulus remains in the differential, it is felt to be less likely as a clear point of twisting or fixed obstruction is not identified. 2. Mild ascites. KUB X-Ray 12/14/19 15:01 IMPRESSION: Marked urinary bladder distention Distended tortuous sigmoid colon worrisome for sigmoid volvulus Chest X-Ray 12/16/19 04:51 IMPRESSION: Stable chest status post extubation. Assessment & Plan - Diagnosis (1) Sigmoid volvulus Is this a current diagnosis for this admission?: Yes - Plan Summary Plan Summary: I have personally interviewed and examined this patient. I agree with the above documentation by Lisa Jon PA-C. 69-year-old male status post Teague's procedure for ischemic colitis. He is doing well today. Surgery will continue to follow.
--- NOTE | 2019-12-24 16:54 | PDOC PROGRESS REPORT ---
Subjective Progress Note for:: 12/24/19 Subjective:: Patient overall doing well today. States he has more energy. We are continuing to focus on improving his nutritional status, managing his dementia, improving electrolyte imbalance, and monitoring anemia due to chronic disease. Expect patient will be appropriate for rehab facility in the near future. He was transfused 2 units PRBC yesterday which she states greatly improved his energy. No new complaints per patient. Surgery following. Reason For Visit: BOWEL OBSTRUCTION Physical Exam Vital Signs: Temp Pulse Resp BP Pulse Ox 98.2 F 90 17 98/62 L 100 12/24/19 11:33 12/24/19 11:33 12/24/19 07:42 12/24/19 11:33 12/24/19 11:33 Intake & Output 12/23/19 12/24/19 12/25/19 06:59 06:59 06:59 Intake Total 3190 1990 2168 Output Total 2525 2100 600 Balance 665 -110 1568 Weight 54.7 kg 56.9 kg 56.9 kg General appearance: PRESENT: no acute distress, well-developed, well-nourished Head exam: PRESENT: atraumatic, normocephalic Eye exam: PRESENT: conjunctiva pink Mouth exam: PRESENT: moist Respiratory exam: PRESENT: clear to auscultation aldair. ABSENT: rales, rhonchi, wheezes Cardiovascular exam: PRESENT: RRR. ABSENT: diastolic murmur, rubs, systolic murmur GI/Abdominal exam: PRESENT: normal bowel sounds, soft, other - Colostomy bag with liquid stool. ABSENT: distended, guarding, mass, organolmegaly, rebound, tenderness Rectal exam: PRESENT: deferred Neurological exam: PRESENT: alert, awake, oriented to person, oriented to place Psychiatric exam: PRESENT: appropriate affect, normal mood Skin exam: PRESENT: dry, intact, warm Results Laboratory Results: 12/24/19 02:07 12/24/19 08:00 12/23/19 12/24/19 12/24/19 09:23 02:07 08:00 WBC 11.5 H RBC 3.35 L Hgb 10.0 L D Hct 29.1 L MCV 87 MCH 29.9 MCHC 34.4 RDW 17.8 H Plt Count 109 L Seg Neutrophils % 80.6 H Sodium 136.5 L Potassium 3.2 L Chloride 102 Carbon Dioxide 31 H Anion Gap 4 L BUN 16 Creatinine 0.70 Est GFR ( Amer) > 60 Glucose 80 Calcium 7.5 L Blood Type B POSITIVE Antibody Screen NEGATIVE 12/14/19 12/14/19 14:24 14:24 Creatine Kinase 32 L Troponin I < 0.012 NT-Pro-B Natriuret Pep 1240 H Impressions: Abdomen/Pelvis CT 12/14/19 00:00 IMPRESSION: 1. Massively dilated stool-filled redundant sigmoid colon. Distention also extends to involve the descending colon. While sigmoid volvulus remains in the differential, it is felt to be less likely as a clear point of twisting or fixed obstruction is not identified. 2. Mild ascites. KUB X-Ray 12/14/19 15:01 IMPRESSION: Marked urinary bladder distention Distended tortuous sigmoid colon worrisome for sigmoid volvulus Chest X-Ray 12/16/19 04:51 IMPRESSION: Stable chest status post extubation. Assessment and Plan - Diagnosis (1) Sigmoid volvulus Is this a current diagnosis for this admission?: Yes Plan: Resolving ileus 69-year-old male 1 week status post exploratory laparotomy, colectomy, colostomy; Teague's procedure; multiple comorbidities General surgery following Colostomy bag with good liquid stool output Disposition per surgery when they believe patient is ready for discharge (2) Acute renal failure (ARF) Qualifiers: Acute renal failure type: with acute tubular necrosis Qualified Code(s): N17.0 - Acute kidney failure with tubular necrosis Is this a current diagnosis for this admission?: Yes Plan: Due to hypovolemia and sepsis Treated with IV fluids and antibiotics Resolved (3) Delirium due to another medical condition, acute, hypoactive Is this a current diagnosis for this admission?: Yes Plan: Occurred due to critical illness, sleep deprivation, renal failure, superimposed dementia Resolved to baseline (4) Hypernatremia Is this a current diagnosis for this admission?: Yes Plan: Likely due to hypovolemia Repleted volume Resolved (5) Sepsis Qualifiers: Sepsis type: sepsis due to unspecified organism Sepsis acute organ dysfunction status: with acute organ dysfunction Severe sepsis acute organ dysfunction type: acute renal failure Acute renal failure type: unspecified Severe sepsis shock status: unspecified Qualified Code(s): A41.9 - Sepsis, unspecified organism; R65.20 - Severe sepsis without septic shock; N17.9 - Acute kidney failure, unspecified Is this a current diagnosis for this admission?: Yes Plan: Resolved (6) Hypokalemia Is this a current diagnosis for this admission?: Yes Plan: Repleting Trend BMP (7) Jaundice Is this a current diagnosis for this admission?: Yes Plan: -resolved (8) Leukocytosis Qualifiers: Leukocytosis type: leukemoid reaction Qualified Code(s): D72.823 - Leukemoid reaction Is this a current diagnosis for this admission?: Yes (9) Metabolic acidosis Is this a current diagnosis for this admission?: Yes (10) Tachycardia Is this a current diagnosis for this admission?: Yes - Plan Summary Summary: 12/21/2019 Vital signs today show the patient to be afebrile temperature 97.6 pulse is 110 although has been as high as 128 oxygen saturation is 95% on room air Blood pressure appears stable at 109/72. Baseline blood pressure appears to be 110/70 On admission his sodium was 135 it went up as high as 160 it is now down to 149 Potassium on admission was 4.9 it went down to 2.8 it is now stable at 3.9 When patient was admitted his BUN was 217, yesterday was 50 today it is 30 Admission his creatinine was 22.36, yesterday is 1.42 today it is 1.0 Blood sugars appear to be running in the low 100s calcium 7.4 with albumin 2.7 Alkaline phos on admission was 721 it went down to 292 now is back up to 498 Pertinent medications at this time include sliding scale of insulin, meropenem every 12 hours which is actually scheduled in today Patient has D5 half-normal saline with 20 of K running at 100 cc/h. Going to changes to D5W with 20 of K at 125 an hour We will be glad to assume medical management of patient. 12/22/2019 Temperature 98.8 pulse between 101 120 blood pressure 134/63, 109/72 White count is down to 12,400, hemoglobin is at 7.7, however it is been at this level before, we will simply watch Sodium is coming down now at 145 potassium stable 3.6 BUN of 2 creatinine 0.89 Ammonia level is normal less than 8.7 Patient is currently on fluid restriction and being followed by general surgery Other labs from this morning are pending I am going to check a hemoglobin A1c and also a TSH tomorrow morning I a.m. wondering if patient's mental status is close to baseline and what his level was prior to admission. There seems to be an element of dementia 12/23/2019 Temp 97 8, pulse 92 , blood pressure this morning 96/55 but normally is 114/66. Oxygen saturation 94% on room air Potassium is still 3.6, going to add p.o. potassium, sodium is coming down anamaria jules 139, creatinine is coming down it is now 0.74 Patient now appears to be eating and drinking early Patient's hemoglobin on 12/18 was 7.6 then on it was 8.9 and today it is down to 7.7 I have ordered 2 units of packed red blood cells to increase his energy level and see if he responds better to treatments White blood cell count is staying around 13 Patient is still pleasantly altered and is probably at his baseline for dementia Patient is going to need detention facility at the time of discharge Patient is currently on meropenem. Patient's main medical problems now include nutritional status, dementia, electrolyte imbalance, anemia due to chronic disease. - Time Time Spent with patient: 25-34 minutes Medications reviewed and adjusted accordingly: Yes Anticipated discharge: SNF Within: within 72 hours - Inpatient Certification Based on my medical assessment, after consideration of the patient's comorbidities, presenting symptoms, or acuity I expect that the services needed warrant INPATIENT care.: Yes I certify that my determination is in accordance with my understanding of Medicare's requirements for reasonable and necessary INPATIENT services [42 CFR 412.3e].: Yes Medical Necessity: Significant Comorbidiites Make Outpatient Treatment Too Risky, Need Close Monitoring Due to Risk of Patient Decompensation
[2019-12-24] MEDS: FINASTERIDE 5 MG TABLET PO SCH (21:35)
[2019-12-25 05:18] LABS: ABSOLUTE BASOPHILS # (AUTO) 0.1 10^3/uL (0.0-0.2); ABSOLUTE LYMPHOCYTES (AUTO) 1.4 10^3/uL (0.5-4.7); ABSOLUTE MONOCYTES (AUTO) 0.8 10^3/uL (0.1-1.4); ABSOLUTE NEUT (AUTO) 6.1 10^3/uL (1.7-8.2); BASOPHILS % (AUTO) 0.7 % (0-2); EOSINOPHILS % (AUTO) 0.5 % (0-6); HEMATOCRIT 26.9 % (37.9-51.0); HEMOGLOBIN 9.2 g/dL (13.5-17.0); LYMPHOCYTES % (AUTO) 17.1 % (13-45); MEAN CORPUSCULAR HEMOGLOBIN 29.8 pg (27.0-33.4); MEAN CORPUSCULAR HGB CONC 34.4 g/dL (32.0-36.0); MEAN CORPUSCULAR VOLUME 87 fl (80-97); MONOCYTES % (AUTO) 9.8 % (3-13); PLATELET COUNT 129 10^3/uL (150-450); RED BLOOD COUNT 3.11 10^6/uL (4.35-5.55); RED CELL DISTRIBUTION WIDTH 18.1 % (11.5-14.0); SEGMENTED NEUTROPHILS % (AUTO) 71.9 % (42-78); TOTAL CELLS COUNTED % (AUTO) 100 %; WHITE BLOOD COUNT 8.4 10^3/uL (4.0-10.5)
[2019-12-25 05:45] LABS: BLOOD UREA NITROGEN 12 mg/dL (7-20); CALCIUM 7.2 mg/dL (8.4-10.2); CARBON DIOXIDE 29 mmol/L (22-30); GLUCOSE 110 mg/dL (75-110); POTASSIUM 3.7 mmol/L (3.6-5.0)
[2019-12-25 05:51] LABS: CHLORIDE 99 mmol/L (98-107)
[2019-12-25 05:56] LABS: ANION GAP 4 (5-19)
[2019-12-25] MEDS: INSULIN REG, HUMAN 100 UNIT/ML 3 ML VIAL (PYX) SUBCUT SCH ×4 (07:16→18:48)
[2019-12-25] MEDS: ENOXAPARIN SODIUM INJ 40 MG/0.4 ML DISP.SYRIN SUBCUT SCH (09:00)
[2019-12-25] MEDS: CALCIUM CARBONATE 600 MG/VITAMIN D3 400 UNIT TABLET PO SCH ×2 (09:03→17:27)
--- NOTE | 2019-12-25 09:42 | PDOC PROGRESS REPORT ---
<LISA JON - Last Filed: 12/25/19 09:38> Subjective Progress Note for:: 12/25/19 Reason For Visit: BOWEL OBSTRUCTION Physical Exam Vital Signs: Temp Pulse Resp BP Pulse Ox 98.9 F 93 12 107/64 74 L 12/25/19 01:00 12/25/19 00:48 12/25/19 01:00 12/25/19 01:00 12/25/19 01:00 Intake & Output 12/24/19 12/25/19 12/26/19 06:59 06:59 06:59 Intake Total 2290 2678 Output Total 2100 1650 Balance 190 1028 Weight 56.9 kg 56.9 kg Results Laboratory Results: 12/25/19 04:31 12/25/19 04:31 12/25/19 12/25/19 04:31 04:31 WBC 8.4 RBC 3.11 L Hgb 9.2 L Hct 26.9 L MCV 87 MCH 29.8 MCHC 34.4 RDW 18.1 H Plt Count 129 L Seg Neutrophils % 71.9 Sodium 131.9 L Potassium 3.7 Chloride 99 Carbon Dioxide 29 Anion Gap 4 L BUN 12 Creatinine 0.73 Est GFR ( Amer) > 60 Glucose 110 Calcium 7.2 L 12/14/19 12/14/19 14:24 14:24 Creatine Kinase 32 L Troponin I < 0.012 NT-Pro-B Natriuret Pep 1240 H Impressions: Abdomen/Pelvis CT 12/14/19 00:00 IMPRESSION: 1. Massively dilated stool-filled redundant sigmoid colon. Distention also extends to involve the descending colon. While sigmoid volvulus remains in the differential, it is felt to be less likely as a clear point of twisting or fixed obstruction is not identified. 2. Mild ascites. KUB X-Ray 12/14/19 15:01 IMPRESSION: Marked urinary bladder distention Distended tortuous sigmoid colon worrisome for sigmoid volvulus Chest X-Ray 12/16/19 04:51 IMPRESSION: Stable chest status post extubation. Assessment & Plan - Diagnosis (1) Sepsis Qualifiers: Sepsis type: sepsis due to unspecified organism Sepsis acute organ dysfunction status: with acute organ dysfunction Severe sepsis acute organ dysfunction type: acute renal failure Acute renal failure type: unspecified Severe sepsis shock status: unspecified Qualified Code(s): A41.9 - Sepsis, unspecified organism; R65.20 - Severe sepsis without septic shock; N17.9 - Acute kidney failure, unspecified Is this a current diagnosis for this admission?: Yes (2) Sigmoid volvulus Is this a current diagnosis for this admission?: Yes - Plan Summary Plan Summary: 69 yo male s/p Hartmans procedure for ischemic colitis. 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 Overall patient is doing well. May begin regular diet. Out of bed. Okay to shower and ostomy training. <BUTCH JAVIER L - Last Filed: 12/25/19 15:13> Subjective Reason For Visit: BOWEL OBSTRUCTION Physical Exam Vital Signs: Temp Pulse Resp BP Pulse Ox 98.3 F 93 16 95/55 L 100 12/25/19 11:33 12/25/19 11:33 12/25/19 11:33 12/25/19 11:33 12/25/19 11:33 Intake & Output 12/24/19 12/25/19 12/26/19 06:59 06:59 06:59 Intake Total 2290 3678 600 Output Total 2100 1650 1725 Balance 190 2027 -1124 Weight 56.9 kg 56.9 kg Results Laboratory Results: 12/25/19 04:31 12/25/19 04:31 12/25/19 12/25/19 12/25/19 04:31 04:31 13:50 WBC 8.4 RBC 3.11 L Hgb 9.2 L Hct 26.9 L MCV 87 MCH 29.8 MCHC 34.4 RDW 18.1 H Plt Count 129 L Seg Neutrophils % 71.9 Sodium 131.9 L Potassium 3.7 Chloride 99 Carbon Dioxide 29 Anion Gap 4 L BUN 12 Creatinine 0.73 Est GFR ( Amer) > 60 Glucose 110 Calcium 7.2 L Urine Color STRAW Urine Appearance CLEAR Urine pH 7.0 Ur Specific [place] 1.002 Urine Protein NEGATIVE Urine Glucose (UA) NEGATIVE Urine Ketones NEGATIVE Urine Blood MODERATE H Urine Nitrite NEGATIVE Ur Leukocyte Esterase NEGATIVE Urine WBC (Auto) 1 Urine RBC (Auto) 0 12/14/19 12/14/19 14:24 14:24 Creatine Kinase 32 L Troponin I < 0.012 NT-Pro-B Natriuret Pep 1240 H Impressions: Abdomen/Pelvis CT 12/14/19 00:00 IMPRESSION: 1. Massively dilated stool-filled redundant sigmoid colon. Distention also exte nds to involve the descending colon. While sigmoid volvulus remains in the differential, it is felt to be less likely as a clear point of twisting or fixed obstruction is not identified. 2. Mild ascites. KUB X-Ray 12/14/19 15:01 IMPRESSION: Marked urinary bladder distention Distended tortuous sigmoid colon worrisome for sigmoid volvulus Chest X-Ray 12/16/19 04:51 IMPRESSION: Stable chest status post extubation. Assessment & Plan - Diagnosis (1) Sigmoid volvulus Is this a current diagnosis for this admission?: Yes - Plan Summary Plan Summary: I have personally interviewed and examined this patient. I agree with the above documentation by Lisa Jon PA-C. Advance diet. Out of bed. Okay to khris wer. Patient with continued urinary retention, despite pharmacologic intervention. I would recommend a urology consultation. Leave Lynn catheter in place for now.
[2019-12-25] MEDS: DEXTROSE 5%-WATER 1000 ML 1,000 ML with POTASSIUM CHLORIDE 20 MEQ IV PRN ×4 (11:24→19:35)
[2019-12-25 14:16] LABS: APPEARANCE,URINE CLEAR; BILIRUBIN,URINE NEGATIVE (NEGATIVE); COLOR,URINE STRAW; GLUCOSE, URINE NEGATIVE (NEGATIVE); KETONES,URINE NEGATIVE (NEGATIVE); LEUKOCYTE ESTERASE,URINE NEGATIVE (NEGATIVE); NITRITE,URINE NEGATIVE (NEGATIVE); PROTEIN,URINE NEGATIVE (NEGATIVE); URINE SPECIFIC GRAVITY 1.002; UROBILINOGEN,URINE NEGATIVE mg/dL (<2.0)
--- NOTE | 2019-12-25 14:38 | PDOC PROGRESS REPORT ---
Subjective Progress Note for:: 12/25/19 Subjective:: Hemoglobin lower today but no signs of bleeding per patient. Has a very tiny amount of blood mixed with stool in his colostomy bag which can be expected this soon after surgery. We will need to watch this to make sure it does not increase. Patient has urinary retention and we have been unable to successfully complete a void trial with him, will need to continue Lynn and follow-up with urology outpatient. Sodium and calcium lower which will be repleted today. Patient has no new complaints today other than some mild abdominal tenderness along surgical site, however surgical site looks very well and is healing nicely. Reason For Visit: BOWEL OBSTRUCTION Physical Exam Vital Signs: Temp Pulse Resp BP Pulse Ox 98.3 F 93 16 95/55 L 100 12/25/19 11:33 12/25/19 11:33 12/25/19 11:33 12/25/19 11:33 12/25/19 11:33 Intake & Output 12/24/19 12/25/19 12/26/19 06:59 06:59 06:59 Intake Total 2290 3678 600 Output Total 2100 1650 1725 Balance 190 2027 -1125 Weight 56.9 kg 56.9 kg General appearance: PRESENT: no acute distress, well-developed, well-nourished Head exam: PRESENT: atraumatic, normocephalic Eye exam: PRESENT: conjunctiva pink Mouth exam: PRESENT: moist Respiratory exam: PRESENT: clear to auscultation aldair. ABSENT: rales, rhonchi, wheezes Cardiovascular exam: PRESENT: RRR. ABSENT: diastolic murmur, rubs, systolic murmur GI/Abdominal exam: PRESENT: normal bowel sounds, soft, tenderness - Minimal tenderness along staple line, healing nicely; colostomy bag in left upper quadrant with some liquid stool slightly blood-tinged. ABSENT: distended, guarding, mass, organolmegaly, rebound Results Laboratory Results: 12/25/19 04:31 12/25/19 04:31 12/25/19 12/25/19 12/25/19 04: 04: 13:50 WBC 8.4 RBC 3.11 L Hgb 9.2 L Hct 26.9 L MCV 87 MCH 29.8 MCHC 34.4 RDW 18.1 H Plt Count 129 L Seg Neutrophils % 71.9 Sodium 131.9 L Potassium 3.7 Chloride 99 Carbon Dioxide 29 Anion Gap 4 L BUN 12 Creatinine 0.73 Est GFR ( Amer) > 60 Glucose 110 Calcium 7.2 L Urine Color STRAW Urine Appearance CLEAR Urine pH 7.0 Ur Specific [employer] 1.002 Urine Protein NEGATIVE Urine Glucose (UA) NEGATIVE Urine Ketones NEGATIVE Urine Blood MODERATE H Urine Nitrite NEGATIVE Ur Leukocyte Esterase NEGATIVE Urine WBC (Auto) 1 Urine RBC (Auto) 0 12/14/19 12/14/19 14:24 14:24 Creatine Kinase 32 L Troponin I < 0.012 NT-Pro-B Natriuret Pep 1240 H Impressions: Abdomen/Pelvis CT 12/14/19 00:00 IMPRESSION: 1. Massively dilated stool-filled redundant sigmoid colon. Distention also extends to involve the descending colon. While sigmoid volvulus remains in the differential, it is felt to be less likely as a clear point of twisting or fixed obstruction is not identified. 2. Mild ascites. KUB X-Ray 12/14/19 15:01 IMPRESSION: Marked urinary bladder distention Distended tortuous sigmoid colon worrisome for sigmoid volvulus Chest X-Ray 12/16/19 04:51 IMPRESSION: Stable chest status post extubation. Assessment and Plan - Diagnosis (1) Sigmoid volvulus Is this a current diagnosis for this admission?: Yes Plan: Resolving ileus 69-year-old male 1 week status post exploratory laparotomy, colectomy, colostomy; Teague's procedure; multiple comorbidities General surgery following Colostomy bag with good liquid stool output Disposition per surgery when they believe patient is ready for discharge (2) Acute renal failure (ARF) Qualifiers: Acute renal failure type: with acute tubular necrosis Qualified Code(s): N17.0 - Acute kidney failure with tubular necrosis Is this a current diagnosis for this admission?: Yes Plan: Due to hypovolemia and sepsis Treated with IV fluids and antibiotics Resolved to baseline/normal -trend BMP (3) Delirium due to another medical condition, acute, hypoactive Is this a current diagnosis for this admission?: Yes (4) Hypernatremia Is this a current diagnosis for this admission?: Yes (5) Sepsis Qualifiers: Sepsis type: sepsis due to unspecified organism Sepsis acute organ dysfunction status: with acute organ dysfunction Severe sepsis acute organ dysfunction type: acute renal failure Acute renal failure type: unspecified Severe sepsis shock status: unspecified Qualified Code(s): A41.9 - Sepsis, unspecified organism; R65.20 - Severe sepsis without septic shock; N17.9 - Acute kidney failure, unspecified Is this a current diagnosis for this admission?: Yes (6) Hypokalemia Is this a current diagnosis for this admission?: Yes (7) Jaundice Is this a current diagnosis for this admission?: Yes (8) Leukocytosis Qualifiers: Leukocytosis type: leukemoid reaction Qualified Code(s): D72.823 - Leukemoid reaction Is this a current diagnosis for this admission?: Yes (9) Metabolic acidosis Is this a current diagnosis for this admission?: Yes (10) Tachycardia Is this a current diagnosis for this admission?: Yes (11) Acute blood loss anemia Is this a current diagnosis for this admission?: Yes Plan: Likely due to invasive abdominal surgery Transfused 2 units PRBC 12/22 Trend hemoglobin, transfuse for hemoglobin less than 7 - Plan Summary Summary: 12/21/2019 Vital signs today show the patient to be afebrile temperature 97.6 pulse is 110 although has been as high as 128 oxygen saturation is 95% on room air Blood pressure appears stable at 109/72. Baseline blood pressure appears to be 110/70 On admission his sodium was 135 it went up as high as 160 it is now down to 149 Potassium on admission was 4.9 it went down to 2.8 it is now stable at 3.9 When patient was admitted his BUN was 217, yesterday was 50 today it is 30 Admission his creatinine was 22.36, yesterday is 1.42 today it is 1.0 Blood sugars appear to be running in the low 100s calcium 7.4 with albumin 2.7 Alkaline phos on admission was 721 it went down to 292 now is back up to 498 Pertinent medications at this time include sliding scale of insulin, meropenem every 12 hours which is actually scheduled in today Patient has D5 half-normal saline with 20 of K running at 100 cc/h. Going to changes to D5W with 20 of K at 125 an hour We will be glad to assume medical management of patient. 12/22/2019 Temperature 98.8 pulse between 101 120 blood pressure 134/63, 109/72 White count is down to 12,400, hemoglobin is at 7.7, however it is been at this level before, we will simply watch Sodium is coming down now at 145 potassium stable 3.6 BUN of 2 creatinine 0.89 Ammonia level is normal less than 8.7 Patient is currently on fluid restriction and being followed by general surgery Other labs from this morning are pending I am going to check a hemoglobin A1c and also a TSH tomorrow morning I a.m. wondering if patient's mental status is close to baseline and what his level was prior to admission. There seems to be an element of dementia 12/23/2019 Temp 97 8, pulse 92 , blood pressure this morning 96/55 but normally is 114/66. Oxygen saturation 94% on room air Potassium is still 3.6, going to add p.o. potassium, sodium is coming down nicely 139, creatinine is coming down it is now 0.74 Patient now appears to be eating and drinking early Patient's hemoglobin on 12/18 was 7.6 then on it was 8.9 and today it is down to 7.7 I have ordered 2 units of packed red blood cells to increase his energy level and see if he responds better to treatments White blood cell count is staying around 13 Patient is still pleasantly altered and is probably at his baseline for dementia Patient is going to need senior care facility at the time of discharge Patient is currently on meropenem. Patient's main medical problems now include nutritional status, dementia, electrolyte imbalance, anemia due to chronic disease. - Time Time Spent with patient: 25-34 minutes Medications reviewed and adjusted accordingly: Yes - Inpatient Certification Medical Necessity: Significant Comorbidiites Make Outpatient Treatment Too Risky, Need Close Monitoring Due to Risk of Patient Decompensation, Risk of Complication if Not Cared For in Hospital
[2019-12-25] MEDS: FINASTERIDE 5 MG TABLET PO SCH (22:27)
[2019-12-26] MEDS: DEXTROSE 5%-WATER 1000 ML 1,000 ML with POTASSIUM CHLORIDE 20 MEQ IV PRN ×4 (04:09→17:12)
[2019-12-26] MEDS: INSULIN REG, HUMAN 100 UNIT/ML 3 ML VIAL (PYX) SUBCUT SCH ×4 (06:51→18:35)
[2019-12-26 07:34] LABS: ABSOLUTE BASOPHILS # (AUTO) 0.1 10^3/uL (0.0-0.2); ABSOLUTE LYMPHOCYTES (AUTO) 1.2 10^3/uL (0.5-4.7); ABSOLUTE MONOCYTES (AUTO) 0.9 10^3/uL (0.1-1.4); ABSOLUTE NEUT (AUTO) 4.8 10^3/uL (1.7-8.2); EOSINOPHILS % (AUTO) 0.5 % (0-6); HEMATOCRIT 27.5 % (37.9-51.0); HEMOGLOBIN 9.6 g/dL (13.5-17.0); LYMPHOCYTES % (AUTO) 17.4 % (13-45); MEAN CORPUSCULAR HEMOGLOBIN 30.6 pg (27.0-33.4); MEAN CORPUSCULAR HGB CONC 34.8 g/dL (32.0-36.0); MEAN CORPUSCULAR VOLUME 88 fl (80-97); MONOCYTES % (AUTO) 12.7 % (3-13); PLATELET COUNT 128 10^3/uL (150-450); RED BLOOD COUNT 3.13 10^6/uL (4.35-5.55); RED CELL DISTRIBUTION WIDTH 17.9 % (11.5-14.0); SEGMENTED NEUTROPHILS % (AUTO) 68.4 % (42-78); TOTAL CELLS COUNTED % (AUTO) 100 %; WHITE BLOOD COUNT 7.1 10^3/uL (4.0-10.5)
[2019-12-26 08:06] LABS: BLOOD UREA NITROGEN 10 mg/dL (7-20); CALCIUM 7.4 mg/dL (8.4-10.2); GLUCOSE 99 mg/dL (75-110); POTASSIUM 4.3 mmol/L (3.6-5.0)
[2019-12-26 08:11] LABS: CARBON DIOXIDE 30 mmol/L (22-30); CHLORIDE 102 mmol/L (98-107)
[2019-12-26 08:14] LABS: ANION GAP 1 (5-19)
--- NOTE | 2019-12-26 09:41 | PDOC PROGRESS REPORT ---
Subjective Progress Note for:: 12/26/19 Reason For Visit: BOWEL OBSTRUCTION Physical Exam Vital Signs: Temp Pulse Resp BP Pulse Ox 97.9 F 96 18 95/52 L 98 12/25/19 19:42 12/25/19 19:42 12/25/19 19:42 12/25/19 19:42 12/25/19 19:42 Intake & Output 12/25/19 12/26/19 12/27/19 06:59 06:59 06:59 Intake Total 3678 2600 Output Total 1653 322 Balance 2027 Weight 56.9 kg 56.9 kg Results Laboratory Results: 12/26/19 07:24 12/26/19 07:24 12/25/19 12/26/19 12/26/19 13:50 07:24 07:24 WBC 7.1 RBC 3.13 L Hgb 9.6 L Hct 27.5 L MCV 88 MCH 30.6 MCHC 34.8 RDW 17.9 H Plt Count 128 L Seg Neutrophils % 68.4 Sodium 133.4 L Potassium 4.3 Chloride 102 Carbon Dioxide 30 Anion Gap 1 L BUN 10 Creatinine 0.71 Est GFR ( Amer) > 60 Glucose 99 Calcium 7.4 L Urine Color STRAW Urine Appearance CLEAR Urine pH 7.0 Ur Specific [place] 1.002 Urine Protein NEGATIVE Urine Glucose (UA) NEGATIVE Urine Ketones NEGATIVE Urine Blood MODERATE H Urine Nitrite NEGATIVE Ur Leukocyte Esterase NEGATIVE Urine WBC (Auto) 1 Urine RBC (Auto) 0 12/14/19 12/14/19 14:24 14:24 Creatine Kinase 32 L Troponin I < 0.012 NT-Pro-B Natriuret Pep 1240 H Impressions: Abdomen/Pelvis CT 12/14/19 00:00 IMPRESSION: 1. Massively dilated stool-filled redundant sigmoid colon. Distention also extends to involve the descending colon. While sigmoid volvulus remains in the differential, it is felt to be less likely as a clear point of twisting or fixed obstruction is not identified. 2. Mild ascites. KUB X-Ray 12/14/19 15:01 IMPRESSION: Marked urinary bladder distention Distended tortuous sigmoid colon worrisome for sigmoid volvulus Chest X-Ray 12/16/19 04:51 IMPRESSION: Stable chest status post extubation. Assessment & Plan - Diagnosis (1) Sigmoid volvulus Is this a current diagnosis for this admission?: Yes - Plan Summary Plan Summary: This is a 69-year-old male status post colectomy for ischemic colitis, related to a sigmoid volvulus. He is tolerating regular diet. His colostomy is pink and productive. His midline incision is clean, dry, and intact. Out of bed. Okay to shower. Patient with continued urinary retention, despite pharmacologic intervention. I would recommend a urology consultation. Leave Lynn catheter in place for now. The patient is fit for discharge from a surgical perspective. He should follow- up with [facility] in 7 to 10 days for staple removal. Surgery will sign off at this time.
[2019-12-26] MEDS: CALCIUM CARBONATE 600 MG/VITAMIN D3 400 UNIT TABLET PO SCH ×2 (10:25→17:12)
[2019-12-26] MEDS: ENOXAPARIN SODIUM INJ 40 MG/0.4 ML DISP.SYRIN SUBCUT SCH (10:25)
--- NOTE | 2019-12-26 13:41 | PDOC PROGRESS REPORT ---
Subjective Progress Note for:: 12/26/19 Subjective:: Patient seems to be doing well overall. His calcium is a bit low and he seems quite weak. We will consult physical therapy to see what his needs are. Patient still having urinary retention. As I stated before, we do not have urology available at this facility. Patient will have to follow-up with him outpatient. General surgery signing off. After physical therapy evaluation may be able to discharge patient home assuming electrolytes are improved. No new co mplaints otherwise. Reason For Visit: BOWEL OBSTRUCTION Physical Exam Vital Signs: Temp Pulse Resp BP Pulse Ox 98.0 F 96 18 98/54 L 100 12/26/19 07:33 12/26/19 07:33 12/26/19 07:33 12/26/19 07:33 12/26/19 07:33 Intake & Output 12/25/19 12/26/19 12/27/19 06:59 06:59 06:59 Intake Total 3678 2600 Output Total 1650 3225 Balance 2027 - Weight 56.9 kg 56.9 kg General appearance: PRESENT: no acute distress, well-developed, well-nourished Head exam: PRESENT: atraumatic, normocephalic Eye exam: PRESENT: conjunctiva pink Mouth exam: PRESENT: moist Respiratory exam: PRESENT: clear to auscultation aldair. ABSENT: rales, rhonchi, wheezes Cardiovascular exam: PRESENT: RRR. ABSENT: diastolic murmur, rubs, systolic murmur GI/Abdominal exam: PRESENT: normal bowel sounds, soft, other - Staple line healing, essentially nontender; colostomy bag with brown liquid stool. ABSENT: distended, guarding, mass, organolmegaly, rebound, tenderness Rectal exam: PRESENT: deferred Neurological exam: PRESENT: alert, awake, oriented to person, oriented to place, oriented to time, oriented to situation Psychiatric exam: PRESENT: appropriate affect, normal mood Skin exam: PRESENT: dry, intact, warm Results Laboratory Results: 12/26/19 07:24 12/26/19 07:24 12/25/19 12/26/19 12/26/19 13:50 07:24 07:24 WBC 7.1 RBC 3.13 L Hgb 9.6 L Hct 27.5 L MCV 88 MCH 30.6 MCHC 34.8 RDW 17.9 H Plt Count 128 L Seg Neutrophils % 68.4 Sodium 133.4 L Potassium 4.3 Chloride 102 Carbon Dioxide 30 Anion Gap 1 L BUN 10 Creatinine 0.71 Est GFR ( Amer) > 60 Glucose 99 Calcium 7.4 L Urine Color STRAW Urine Appearance CLEAR Urine pH 7.0 Ur Specific [place] 1.002 Urine Protein NEGATIVE Urine Glucose (UA) NEGATIVE Urine Ketones NEGATIVE Urine Blood MODERATE H Urine Nitrite NEGATIVE Ur Leukocyte Esterase NEGATIVE Urine WBC (Auto) 1 Urine RBC (Auto) 0 12/14/19 12/14/19 14:24 14:24 Creatine Kinase 32 L Troponin I < 0.012 NT-Pro-B Natriuret Pep 1240 H Impressions: Abdomen/Pelvis CT 12/14/19 00:00 IMPRESSION: 1. Massively dilated stool-filled redundant sigmoid colon. Distention also extends to involve the descending colon. While sigmoid volvulus remains in the differential, it is felt to be less likely as a clear point of twisting or fixed obstruction is not identified. 2. Mild ascites. KUB X-Ray 12/14/19 15:01 IMPRESSION: Marked urinary bladder distention Distended tortuous sigmoid colon worrisome for sigmoid volvulus Chest X-Ray 12/16/19 04:51 IMPRESSION: Stable chest status post extubation. Assessment and Plan - Diagnosis (1) Sigmoid volvulus Is this a current diagnosis for this admission?: Yes Plan: Resolving ileus 69-year-old male 1 week status post exploratory laparotomy, colectomy, colostomy; Teague's procedure; multiple comorbidities General surgery following Colostomy bag with good liquid stool output General surgery signed off, okay with discharge when cleared by medicine Patient has some weakness/debility, physical therapy evaluation ordered (2) Acute renal failure (ARF) Qualifiers: Acute renal failure type: with acute tubular necrosis Qualified Code(s): N17.0 - Acute kidney failure with tubular necrosis Is this a current diagnosis for this admission?: Yes (3) Delirium due to another medical condition, acute, hypoactive Is this a current diagnosis for this admission?: Yes (4) Hypernatremia Is this a current diagnosis for this admission?: Yes (5) Sepsis Qualifiers: Sepsis type: sepsis due to unspecified organism Sepsis acute organ dysfunction status: with acute organ dysfunction Severe sepsis acute organ dysfunction type: acute renal failure Acute renal failure type: unspecified Severe sepsis shock status: unspecified Qualified Code(s): A41.9 - Sepsis, unspecified organism; R65.20 - Severe sepsis without septic shock; N17.9 - Acute kidney failure, unspecified Is this a current diagnosis for this admission?: Yes (6) Hypokalemia Is this a current diagnosis for this admission?: Yes (7) Jaundice Is this a current diagnosis for this admission?: Yes (8) Leukocytosis Qualifiers: Leukocytosis type: leukemoid reaction Qualified Code(s): D72.823 - Leukemoid reaction Is this a current diagnosis for this admission?: Yes (9) Metabolic acidosis Is this a current diagnosis for this admission?: Yes (10) Tachycardia Is this a current diagnosis for this admission?: Yes (11) Acute blood loss anemia Is this a current diagnosis for this admission?: Yes Plan: Likely due to invasive abdominal surgery Transfused 2 units PRBC 12/22 Trend hemoglobin, transfuse for hemoglobin less than 7 Has now stabilized - Plan Summary Summary: 12/21/2019 Vital signs today show the patient to be afebrile temperature 97.6 pulse is 110 although has been as high as 128 oxygen saturation is 95% on room air Blood pressure appears stable at 109/72. Baseline blood pressure appears to be 110/70 On admission his sodium was 135 it went up as high as 160 it is now down to 149 Potassium on admission was 4.9 it went down to 2.8 it is now stable at 3.9 When patient was admitted his BUN was 217, yesterday was 50 today it is 30 Admission his creatinine was 22.36, yesterday is 1.42 today it is 1.0 Blood sugars appear to be running in the low 100s calcium 7.4 with albumin 2.7 Alkaline phos on admission was 721 it went down to 292 now is back up to 498 Pertinent medications at this time include sliding scale of insulin, meropenem every 12 hours which is actually scheduled in today Patient has D5 half-normal saline with 20 of K running at 100 cc/h. Going to changes to D5W with 20 of K at 125 an hour We will be glad to assume medical management of patient. 12/22/2019 Temperature 98.8 pulse between 101 120 blood pressure 134/63, 109/72 White count is down to 12,400, hemoglobin is at 7.7, however it is been at this level before, we will simply watch Sodium is coming down now at 145 potassium stable 3.6 BUN of 2 creatinine 0.89 Ammonia level is normal less than 8.7 Patient is currently on fluid restriction and being followed by general surgery Other labs from this morning are pending I am going to check a hemoglobin A1c and also a TSH tomorrow morning I a.m. wondering if patient's mental status is close to baseline and what his level was prior to admission. There seems to be an element of dementia 12/23/2019 Temp 97 8, pulse 92 , blood pressure this morning 96/55 but normally is 114/66. Oxygen saturation 94% on room air Potassium is still 3.6, going to add p.o. potassium, sodium is coming down nicely 139, creatinine is coming down it is now 0.74 Patient now appears to be eating and drinking early Patient's hemoglobin on 12/18 was 7.6 then on it was 8.9 and today it is down to 7.7 I have ordered 2 units of packed red blood cells to increase his energy level and see if he responds better to treatments White blood cell count is staying around 13 Patient is still pleasantly altered and is probably at his baseline for dementia Patient is going to need long-term facility at the time of discharge Patient is currently on meropenem. Patient's main medical problems now include nutritional status, dementia, electrolyte imbalance, anemia due to chronic disease. - Time Time Spent with patient: 15-24 minutes Medications reviewed and adjusted accordingly: Yes Anticipated discharge: Home with Homehealth Within: within 48 hours - Inpatient Certification Based on my medical assessment, after consideration of the patient's comorbidities, presenting symptoms, or acuity I expect that the services needed warrant INPATIENT care.: Yes I certify that my determination is in accordance with my understanding of Medicare's requirements for reasonable and necessary INPATIENT services [42 CFR 412.3e].: Yes Medical Necessity: Significant Comorbidiites Make Outpatient Treatment Too Risky, Need Close Monitoring Due to Risk of Patient Decompensation
[2019-12-26] MEDS: ONDANSETRON HCL INJ/PF 4 MG/2 ML SDV IV PRN (18:12)
[2019-12-26] MEDS: FINASTERIDE 5 MG TABLET PO SCH (22:38)
[2019-12-27] MEDS: INSULIN REG, HUMAN 100 UNIT/ML 3 ML VIAL (PYX) SUBCUT SCH ×4 (00:27→18:27)
[2019-12-27] MEDS: DEXTROSE 5%-WATER 1000 ML 1,000 ML with POTASSIUM CHLORIDE 20 MEQ IV PRN ×4 (01:57→21:51)
[2019-12-27] MEDS: ONDANSETRON HCL INJ/PF 4 MG/2 ML SDV IV PRN ×2 (01:57→14:17)
[2019-12-27 06:15] LABS: HEMATOCRIT 33.9 % (37.9-51.0); HEMOGLOBIN 11.4 g/dL (13.5-17.0); MEAN CORPUSCULAR HEMOGLOBIN 29.6 pg (27.0-33.4); MEAN CORPUSCULAR HGB CONC 33.6 g/dL (32.0-36.0); MEAN CORPUSCULAR VOLUME 88 fl (80-97); PLATELET COUNT 160 10^3/uL (150-450); RED BLOOD COUNT 3.84 10^6/uL (4.35-5.55); RED CELL DISTRIBUTION WIDTH 18.2 % (11.5-14.0)
[2019-12-27 06:35] LABS: ABSOLUTE LYMPHOCYTES# (MANUAL) 1.3 10^3/uL (0.5-4.7); BAND NEUTROPHILS % (MANUAL) 4 % (3-5); BASOPHILS % (MANUAL) 0 % (0-2); EOSINOPHILS % (MANUAL) 0 % (0-6); LYMPHOCYTES % (MANUAL) 25 % (13-45); MONOCYTES % (MANUAL) 19 % (3-13); SEGMENTED NEUTROPHILS % (MAN) 52 % (42-78); TOTAL CELLS COUNTED 100
[2019-12-27 06:36] LABS: ANISOCYTOSIS 2+; OVALOCYTES SLIGHT; PLATELET COMMENT ADEQUATE; POIKILOCYTOSIS SLIGHT; POLYCHROMASIA SLIGHT; SCHISTOCYTES SLIGHT; TOXIC GRANULATION 1+; TOXIC VACUOLATION PRESENT
[2019-12-27 06:37] LABS: ANION GAP 8 (5-19); BLOOD UREA NITROGEN 12 mg/dL (7-20); CARBON DIOXIDE 28 mmol/L (22-30); CHLORIDE 95 mmol/L (98-107); GLUCOSE 102 mg/dL (75-110); POTASSIUM 4.7 mmol/L (3.6-5.0)
[2019-12-27] MEDS: ENOXAPARIN SODIUM INJ 40 MG/0.4 ML DISP.SYRIN SUBCUT SCH (13:44)
[2019-12-27] MEDS: CALCIUM CARBONATE 600 MG/VITAMIN D3 400 UNIT TABLET PO SCH ×2 (13:44→18:00)
--- NOTE | 2019-12-27 15:27 | PDOC PROGRESS REPORT ---
Subjective Progress Note for:: 12/27/19 Subjective:: Patient had some vomiting this morning and states he would like some antiemetic medication. He believes he may have just eaten his food too quickly. I counseled him on eating smaller portions and taking a much greater amount of time to finish his food. Reportedly, case management is working on getting him to a SNF. Patient states he is agreeable to this. Reason For Visit: BOWEL OBSTRUCTION Physical Exam Vital Signs: Temp Pulse Resp BP Pulse Ox 98.8 F 89 17 96/55 L 98 12/27/19 07:23 12/27/19 07:23 12/27/19 07:23 12/27/19 07:23 12/27/19 07:23 Intake & Output 12/26/19 12/27/19 12/28/19 06:59 06:59 06:59 Intake Total 2600 2856 Output Total 3225 2175 1075 Balance -625 681 -1075 Weight 56.9 kg 59 kg General appearance: PRESENT: no acute distress, well-developed, well-nourished Head exam: PRESENT: atraumatic, normocephalic Eye exam: PRESENT: conjunctiva pink Mouth exam: PRESENT: moist Respiratory exam: PRESENT: clear to auscultation aldair. ABSENT: rales, rhonchi, wheezes Cardiovascular exam: PRESENT: RRR. ABSENT: diastolic murmur, rubs, systolic murmur GI/Abdominal exam: PRESENT: normal bowel sounds, soft, other - Left upper quadrant colostomy bag with brown liquid stool in it; staple line healing well. ABSENT: distended, guarding, mass, organolmegaly, rebound, tenderness Neurological exam: PRESENT: alert, awake, oriented to person, oriented to place, oriented to time Psychiatric exam: PRESENT: appropriate affect, normal mood Skin exam: PRESENT: dry, intact, warm Results Laboratory Results: 12/27/19 05:00 12/27/19 05:00 12/27/19 12/27/19 05:00 05:00 WBC 5.0 RBC 3.84 L Hgb 11.4 L Hct 33.9 L MCV 88 MCH 29.6 MCHC 33.6 RDW 18.2 H Plt Count 160 Seg Neutrophils % Not Reportable Sodium 131.2 L Potassium 4.7 Chloride 95 L Carbon Dioxide 28 Anion Gap 8 BUN 12 Creatinine 0.77 Est GFR ( Amer) > 60 Glucose 102 Calcium 8.0 L 12/14/19 12/14/19 14:24 14:24 Creatine Kinase 32 L Troponin I < 0.012 NT-Pro-B Natriuret Pep 1240 H Impressions: Abdomen/Pelvis CT 12/14/19 00:00 IMPRESSION: 1. Massively dilated stool-filled redundant sigmoid colon. Distention also extends to involve the descending colon. While sigmoid volvulus remains in the differential, it is felt to be less likely as a clear point of twisting or fixed obstruction is not identified. 2. Mild ascites. KUB X-Ray 12/14/19 15:01 IMPRESSION: Marked urinary bladder distention Distended tortuous sigmoid colon worrisome for sigmoid volvulus Chest X-Ray 12/16/19 04:51 IMPRESSION: Stable chest status post extubation. Assessment and Plan - Diagnosis (1) Sigmoid volvulus Is this a current diagnosis for this admission?: Yes Plan: Resolving ileus 69-year-old male 1 week status post exploratory laparotomy, colectomy, colostomy; Teague's procedure; multiple comorbidities General surgery following Colostomy bag with good liquid stool output General surgery signed off, okay with discharge when cleared by medicine Patient has some weakness/debility, physical therapy evaluation ordered Had some mild intermittent vomiting, antiemetics available (2) Acute renal failure (ARF) Qualifiers: Acute renal failure type: with acute tubular necrosis Qualified Code(s): N17.0 - Acute kidney failure with tubular necrosis Is this a current diagnosis for this admission?: Yes (3) Delirium due to another medical condition, acute, hypoactive Is this a current diagnosis for this admission?: Yes (4) Hypernatremia Is this a current diagnosis for this admission?: Yes (5) Sepsis Qualifiers: Sepsis type: sepsis due to unspecified organism Sepsis acute organ dysfunction status: with acute organ dysfunction Severe sepsis acute organ dysfunction type: acute renal failure Acute renal failure type: unspecified Severe sepsis shock status: unspecified Qualified Code(s): A41.9 - Sepsis, unspecified organism; R65.20 - Severe sepsis without septic shock; N17.9 - Acute kidney failure, unspecified Is this a current diagnosis for this admission?: Yes (6) Hypokalemia Is this a current diagnosis for this admission?: Yes (7) Jaundice Is this a current diagnosis for this admission?: Yes (8) Leukocytosis Qualifiers: Leukocytosis type: leukemoid reaction Qualified Code(s): D72.823 - Leukemoid reaction Is this a current diagnosis for this admission?: Yes (9) Metabolic acidosis Is this a current diagnosis for this admission?: Yes (10) Tachycardia Is this a current diagnosis for this admission?: Yes (11) Acute blood loss anemia Is this a current diagnosis for this admission?: Yes (12) Debility Is this a current diagnosis for this admission?: Yes Plan: Deconditioning and weakness SNF is recommended - Plan Summary Summary: 12/21/2019 Vital signs today show the patient to be afebrile temperature 97.6 pulse is 110 although has been as high as 128 oxygen saturation is 95% on room air Blood pressure appears stable at 109/72. Baseline blood pressure appears to be 110/70 On admission his sodium was 135 it went up as high as 160 it is now down to 149 Potassium on admission was 4.9 it went down to 2.8 it is now stable at 3.9 When patient was admitted his BUN was 217, yesterday was 50 today it is 30 Admission his creatinine was 22.36, yesterday is 1.42 today it is 1.0 Blood sugars appear to be running in the low 100s calcium 7.4 with albumin 2.7 Alkaline phos on admission was 721 it went down to 292 now is back up to 498 Pertinent medications at this time include sliding scale of insulin, meropenem every 12 hours which is actually scheduled in today Patient has D5 half-normal saline with 20 of K running at 100 cc/h. Going to changes to D5W with 20 of K at 125 an hour We will be glad to assume medical management of patient. 12/22/2019 Temperature 98.8 pulse between 101 120 blood pressure 134/63, 109/72 White count is down to 12,400, hemoglobin is at 7.7, however it is been at this level before, we will simply watch Sodium is coming down now at 145 potassium stable 3.6 BUN of 2 creatinine 0.89 Ammonia level is normal less than 8.7 Patient is currently on fluid restriction and being followed by general surgery Other labs from this morning are pending I am going to check a hemoglobin A1c and also a TSH tomorrow morning I a.m. wondering if patient's mental status is close to baseline and what his level was prior to admission. There seems to be an element of dementia 12/23/2019 Temp 97 8, pulse 92 , blood pressure this morning 96/55 but normally is 114/66. Oxygen saturation 94% on room air Potassium is still 3.6, going to add p.o. potassium, sodium is coming down nicely 139, creatinine is coming down it is now 0.74 Patient now appears to be eating and drinking early Patient's hemoglobin on 12/18 was 7.6 then on it was 8.9 and today it is down to 7.7 I have ordered 2 units of packed red blood cells to increase his energy level and see if he responds better to treatments White blood cell count is staying around 13 Patient is still pleasantly altered and is probably at his baseline for dementia Patient is going to need custodial facility at the time of discharge Patient is currently on meropenem. Patient's main medical problems now include nutritional status, dementia, electrolyte imbalance, anemia due to chronic disease. - Time Time Spent with patient: 25-34 minutes Medications reviewed and adjusted accordingly: Yes Anticipated discharge: SNF Within: within 48 hours - Inpatient Certification Based on my medical assessment, after consideration of the patient's comorbidities, presenting symptoms, or acuity I expect that the services needed warrant INPATIENT care.: Yes I certify that my determination is in accordance with my understanding of Medicare's requirements for reasonable and necessary INPATIENT services [42 CFR 412.3e].: Yes Medical Necessity: Significant Comorbidiites Make Outpatient Treatment Too Risky, Need Close Monitoring Due to Risk of Patient Decompensation
[2019-12-27 18:29] LABS: APPEARANCE,URINE CLEAR; BILIRUBIN,URINE NEGATIVE (NEGATIVE); COLOR,URINE STRAW; GLUCOSE, URINE NEGATIVE (NEGATIVE); KETONES,URINE NEGATIVE (NEGATIVE); LEUKOCYTE ESTERASE,URINE NEGATIVE (NEGATIVE); NITRITE,URINE NEGATIVE (NEGATIVE); PROTEIN,URINE NEGATIVE (NEGATIVE); URINE SPECIFIC GRAVITY 1.002; UROBILINOGEN,URINE NEGATIVE mg/dL (<2.0)
[2019-12-27] MEDS: FINASTERIDE 5 MG TABLET PO SCH (21:50)
[2019-12-28] MEDS: INSULIN REG, HUMAN 100 UNIT/ML 3 ML VIAL (PYX) SUBCUT SCH ×2 (00:03→06:22)
[2019-12-28] MEDS: DEXTROSE 5%-WATER 1000 ML 1,000 ML with POTASSIUM CHLORIDE 20 MEQ IV PRN ×2 (06:19)
[2019-12-28 06:48] LABS: HEMOGLOBIN 9.4 g/dL (13.5-17.0); MEAN CORPUSCULAR HEMOGLOBIN 29.7 pg (27.0-33.4); MEAN CORPUSCULAR HGB CONC 33.8 g/dL (32.0-36.0); MEAN CORPUSCULAR VOLUME 88 fl (80-97); PLATELET COUNT 165 10^3/uL (150-450); RED BLOOD COUNT 3.18 10^6/uL (4.35-5.55); RED CELL DISTRIBUTION WIDTH 17.5 % (11.5-14.0); WHITE BLOOD COUNT 4.8 10^3/uL (4.0-10.5)
[2019-12-28 07:04] LABS: ABSOLUTE LYMPHOCYTES# (MANUAL) 1.2 10^3/uL (0.5-4.7); ABSOLUTE MONOCYTES # (MANUAL) 0.9 10^3/uL (0.1-1.4); BAND NEUTROPHILS % (MANUAL) 1 % (3-5); BASOPHILS % (MANUAL) 0 % (0-2); EOSINOPHILS % (MANUAL) 1 % (0-6); LYMPHOCYTES % (MANUAL) 23 % (13-45); MONOCYTES % (MANUAL) 19 % (3-13); SEGMENTED NEUTROPHILS % (MAN) 55 % (42-78); TOTAL CELLS COUNTED 100
[2019-12-28 07:05] LABS: ANISOCYTOSIS 2+; PLATELET COMMENT ADEQUATE
[2019-12-28 07:20] LABS: ANION GAP 5 (5-19); BLOOD UREA NITROGEN 12 mg/dL (7-20); CALCIUM 7.6 mg/dL (8.4-10.2); CARBON DIOXIDE 27 mmol/L (22-30); CHLORIDE 99 mmol/L (98-107); GLUCOSE 107 mg/dL (75-110); POTASSIUM 4.2 mmol/L (3.6-5.0)
[2019-12-28] MEDS: CALCIUM CARBONATE 600 MG/VITAMIN D3 400 UNIT TABLET PO SCH ×2 (09:57→17:22)
[2019-12-28] MEDS: ENOXAPARIN SODIUM INJ 40 MG/0.4 ML DISP.SYRIN SUBCUT SCH (09:57)
--- NOTE | 2019-12-28 13:48 | PDOC PROGRESS REPORT ---
Subjective Progress Note for:: 12/28/19 Subjective:: The patient was seen on morning rounds. He is found resting in bed, comfortably, on room air. He reports he is feeling well today. He denies abdominal discomfort, nausea or vomiting. Tolerated his breakfast well. He denies fever, chills, chest pain, palpitations, dyspnea, orthopnea. He states he is looking forward to discharge to SNF for rehabilitation. Otherwise he has no questions or concerns at this time. No concerns per nursing. Reason For Visit: BOWEL OBSTRUCTION Physical Exam Vital Signs: Temp Pulse Resp BP Pulse Ox 97.3 F 116 H 19 100/56 L 98 12/28/19 11:58 12/28/19 11:58 12/28/19 11:58 12/28/19 11:58 12/28/19 11:58 Intake & Output 12/27/19 12/28/19 12/29/19 06:59 06:59 06:59 Intake Total 2856 2118 Output Total 2175 3625 Balance 681 -1507 Weight 59 kg 58.3 kg General appearance: PRESENT: no acute distress, well-developed, well-nourished Head exam: PRESENT: atraumatic, normocephalic Eye exam: PRESENT: conjunctiva pink, EOMI, PERRLA. ABSENT: scleral icterus Mouth exam: PRESENT: moist, tongue midline Respiratory exam: PRESENT: clear to auscultation aldair, symmetrical, unlabored. ABSENT: rales, rhonchi, wheezes Cardiovascular exam: PRESENT: RRR. ABSENT: diastolic murmur, rubs, systolic murmur Pulses: PRESENT: normal dorsalis pedis pul Vascular exam: PRESENT: normal capillary refill GI/Abdominal exam: PRESENT: normal bowel sounds, soft, other - Left upper quadrant colostomy bag with (+) stool. ABSENT: distended, guarding, mass, organolmegaly, rebound, tenderness Rectal exam: PRESENT: deferred Gentrourinary exam: PRESENT: indwelling catheter Extremities exam: PRESENT: full ROM. ABSENT: calf tenderness, clubbing, pedal edema Musculoskeletal exam: PRESENT: ambulatory Neurological exam: PRESENT: alert, awake, oriented to person, oriented to place, oriented to time, oriented to situation, CN II-XII grossly intact. ABSENT: motor sensory deficit Psychiatric exam: PRESENT: appropriate affect, normal mood. ABSENT: homicidal ideation, suicidal ideation Skin exam: PRESENT: dry, intact, warm. ABSENT: cyanosis, rash Results Laboratory Results: 12/28/19 06:36 12/28/19 06:36 12/27/19 12/28/19 12/28/19 17:32 06:36 06:36 WBC 4.8 RBC 3.18 L Hgb 9.4 L Hct 28.0 L MCV 88 MCH 29.7 MCHC 33.8 RDW 17.5 H Plt Count 165 Seg Neutrophils % Not Reportable Sodium 130.7 L Potassium 4.2 Chloride 99 Carbon Dioxide 27 Anion Gap 5 BUN 12 Creatinine 0.74 Est GFR ( Amer) > 60 Glucose 107 Calcium 7.6 L Urine Color STRAW Urine Appearance CLEAR Urine pH 8.0 Ur Specific [place] 1.002 Urine Protein NEGATIVE Urine Glucose (UA) NEGATIVE Urine Ketones NEGATIVE Urine Blood MODERATE H Urine Nitrite NEGATIVE Ur Leukocyte Esterase NEGATIVE Urine WBC (Auto) 1 Urine RBC (Auto) 0 12/14/19 12/14/19 14:24 14:24 Creatine Kinase 32 L Troponin I < 0.012 NT-Pro-B Natriuret Pep 1240 H Impressions: Abdomen/Pelvis CT 12/14/19 00:00 IMPRESSION: 1. Massively dilated stool-filled redundant sigmoid colon. Distention also extends to involve the descending colon. While sigmoid volvulus remains in the differential, it is felt to be less likely as a clear point of twisting or fixed obstruction is not identified. 2. Mild ascites. KUB X-Ray 12/14/19 15:01 IMPRESSION: Marked urinary bladder distention Distended tortuous sigmoid colon worrisome for sigmoid volvulus Chest X-Ray 12/16/19 04:51 IMPRESSION: Stable chest status post extubation. Assessment and Plan - Diagnosis (1) Urinary retention Is this a current diagnosis for this admission?: Yes Plan: Likely secondary to acute illness, sepsis, and prolonged Lynn placement. Continue Proscar. Lynn catheter has been removed. Bladder scan every 6 hours and straight catheter for postvoid retention greater than 200 mL's. (2) Sigmoid volvulus Is this a current diagnosis for this admission?: Yes Plan: Resolving ileus 69-year-old male 1 week status post exploratory laparotomy, colectomy, colostomy; Teague's procedure; multiple comorbidities General surgery has signed off. Colostomy bag with good liquid stool output Had some mild intermittent vomiting, antiemetics available (3) Acute blood loss anemia Is this a current diagnosis for this admission?: Yes Plan: Resolved Likely due to invasive abdominal surgery Transfused 4 units PRBC Has now stabilized (4) Acute renal failure (ARF) Qualifiers: Acute renal failure type: with acute tubular necrosis Qualified Code(s): N17.0 - Acute kidney failure with tubular necrosis Is this a current diagnosis for this admission?: Yes Plan: Resolved to baseline/normal Due to hypovolemia and sepsis Treated with IV fluids and antibiotics (5) Debility Is this a current diagnosis for this admission?: Yes Plan: Deconditioning and weakness PT/Ot consulted. Discharge planning consulted for SNF placement. (6) Delirium due to another medical condition, acute, hypoactive Is this a current diagnosis for this admission?: Yes Plan: Resolved. Occurred due to critical illness, sleep deprivation, renal failure, superimposed dementia (7) Hypernatremia Is this a current diagnosis for this admission?: Yes Plan: Resolved. Likely due to hypovolemia Repleted volume (8) Hypokalemia Is this a current diagnosis for this admission?: Yes Plan: Resolved. (9) Jaundice Is this a current diagnosis for this admission?: Yes Plan: Resolved (10) Leukocytosis Qualifiers: Leukocytosis type: leukemoid reaction Qualified Code(s): D72.823 - Leukemoid reaction Is this a current diagnosis for this admission?: Yes Plan: Resolved. (11) Metabolic acidosis Is this a current diagnosis for this admission?: Yes Plan: Resolved. (12) Sepsis Qualifiers: Sepsis type: sepsis due to unspecified organism Sepsis acute organ dysfunction status: with acute organ dysfunction Severe sepsis acute organ dysfunction type: acute renal failure Acute renal failure type: unspecified Severe sepsis shock status: unspecified Qualified Code(s): A41.9 - Sepsis, unspecified organism; R65.20 - Severe sepsis without septic shock; N17.9 - Acute kidney failure, unspecified Is this a current diagnosis for this admission?: Yes Plan: Resolved (13) Tachycardia Is this a current diagnosis for this admission?: Yes - Plan Summary Summary: COVID19 test pending for SNF placement; no suspicion for active infection at this time. - Time Time Spent with patient: 25-34 minutes Medications reviewed and adjusted accordingly: Yes Anticipated discharge: SNF Within: when bed available
[2019-12-28] MEDS: FINASTERIDE 5 MG TABLET PO SCH (21:45)
[2019-12-29 06:35] LABS: BLOOD UREA NITROGEN 11 mg/dL (7-20); CALCIUM 7.7 mg/dL (8.4-10.2); CARBON DIOXIDE 29 mmol/L (22-30); GLUCOSE 101 mg/dL (75-110); POTASSIUM 4.1 mmol/L (3.6-5.0)
[2019-12-29 06:41] LABS: CHLORIDE 97 mmol/L (98-107)
[2019-12-29 06:44] LABS: ANION GAP 5 (5-19)
[2019-12-29 08:26] LABS: FREE T3 2.06 pg/mL (2.77-5.27); FREE T4 (FREE THYROXINE) 1.31 ng/dL (0.78-2.19)
[2019-12-29] MEDS: CALCIUM CARBONATE 600 MG/VITAMIN D3 400 UNIT TABLET PO SCH ×2 (09:19→18:16)
[2019-12-29] MEDS: ENOXAPARIN SODIUM INJ 40 MG/0.4 ML DISP.SYRIN SUBCUT SCH (09:19)
--- NOTE | 2019-12-29 11:45 | PDOC PROGRESS REPORT ---
Subjective Progress Note for:: 12/29/19 Subjective:: The patient was seen on morning rounds. He is found resting in bed, comfortably, on room air. Sleeping soundly; did wake briefly when I said his name, but then quickly fell back to sleep. He reports he is feeling well today. He denies abdominal discomfort, nausea or vomiting. Tolerated his breakfast well. He denies fever, chills, chest pain, palpitations, dyspnea, orthopnea. He has no questions or concerns at this time. No concerns per nursing. Reason For Visit: BOWEL OBSTRUCTION Physical Exam Vital Signs: Temp Pulse Resp BP Pulse Ox 98.2 F 107 H 18 110/61 100 12/29/19 08:00 12/29/19 08:00 12/29/19 08:00 12/29/19 08:00 12/29/19 08:00 Intake & Output 12/28/19 12/29/19 12/30/19 06:59 06:59 06:59 Intake Total 2118 3650 Output Total 3625 2750 Balance -1507 900 Weight 58.3 kg 58.5 kg General appearance: PRESENT: no acute distress, well-developed, well-nourished Head exam: PRESENT: atraumatic, normocephalic Eye exam: PRESENT: conjunctiva pink, EOMI, PERRLA. ABSENT: scleral icterus Mouth exam: PRESENT: moist, tongue midline Respiratory exam: PRESENT: clear to auscultation aldair, symmetrical, unlabored, other - Room air. ABSENT: rales, rhonchi, wheezes Cardiovascular exam: PRESENT: RRR. ABSENT: diastolic murmur, rubs, systolic murmur Vascular exam: PRESENT: normal capillary refill GI/Abdominal exam: PRESENT: normal bowel sounds, soft, other - Left upper quadrant colostomy bag with (+) stool. ABSENT: distended, guarding, mass, organolmegaly, rebound, tenderness Rectal exam: PRESENT: deferred Extremities exam: PRESENT: full ROM. ABSENT: calf tenderness, clubbing, pedal edema Neurological exam: PRESENT: alert, awake, oriented to person, oriented to place, oriented to time, oriented to situation, CN II-XII grossly intact. ABSENT: motor sensory deficit Psychiatric exam: PRESENT: appropriate affect, normal mood. ABSENT: homicidal ideation, suicidal ideation Skin exam: PRESENT: dry, intact, warm. ABSENT: cyanosis, rash Results Laboratory Results: 12/28/19 06:36 12/29/19 05:46 12/29/19 12/29/19 12/29/19 05:46 05:46 05:46 Sodium 131.3 L Potassium 4.1 Chloride 97 L Carbon Dioxide 29 Anion Gap 5 BUN 11 Creatinine 0.76 Est GFR ( Amer) > 60 Glucose 101 Calcium 7.7 L TSH 6.34 H Free T4 1.31 Free T3 pg/mL 2.06 L 12/14/19 12/14/19 14:24 14:24 Creatine Kinase 32 L Troponin I < 0.012 NT-Pro-B Natriuret Pep 1240 H Impressions: Abdomen/Pelvis CT 12/14/19 00:00 IMPRESSION: 1. Massively dilated stool-filled redundant sigmoid colon. Distention also extends to involve the descending colon. While sigmoid volvulus remains in the differential, it is felt to be less likely as a clear point of twisting or fixed obstruction is not identified. 2. Mild ascites. KUB X-Ray 12/14/19 15:01 IMPRESSION: Marked urinary bladder distention Distended tortuous sigmoid colon worrisome for sigmoid volvulus Chest X-Ray 12/16/19 04:51 IMPRESSION: Stable chest status post extubation. Assessment and Plan - Diagnosis (1) Urinary retention Is this a current diagnosis for this admission?: Yes Plan: Likely secondary to acute illness, sepsis, and prolonged Lynn placement. Continue Proscar. Lynn catheter has been removed. Bladder scan every 6 hours and straight catheter for postvoid retention greater than 200 mL's. Per nursing, the patient did require straight cath x2 overnight with 800 to 900 mL output. May need to re-insert Lynn catheter prior to discharge to SNF and arrange for outpatient urology follow-up. (2) Sigmoid volvulus Is this a current diagnosis for this admission?: Yes Plan: Resolving ileus 69-year-old male status post exploratory laparotomy, colectomy, colostomy; Teague's procedure; multiple comorbidities General surgery has signed off. Colostomy bag with good liquid stool output (3) Acute blood loss anemia Is this a current diagnosis for this admission?: Yes Plan: Resolved Likely due to invasive abdominal surgery Transfused 4 units PRBC Has now stabilized (4) Acute renal failure (ARF) Qualifiers: Acute renal failure type: with acute tubular necrosis Qualified Code(s): N17.0 - Acute kidney failure with tubular necrosis Is this a current diagnosis for this admission?: Yes Plan: Resolved to baseline/normal Due to hypovolemia and sepsis Treated with IV fluids and antibiotics (5) Debility Is this a current diagnosis for this admission?: Yes Plan: Deconditioning and weakness PT/Ot consulted. Discharge planning consulted for SNF placement. (6) Delirium due to another medical condition, acute, hypoactive Is this a current diagnosis for this admission?: Yes Plan: Resolved. Occurred due to critical illness, sleep deprivation, renal failure, superimposed dementia (7) Hypernatremia Is this a current diagnosis for this admission?: Yes Plan: Resolved. Likely due to hypovolemia Repleted volume (8) Hypokalemia Is this a current diagnosis for this admission?: Yes Plan: Resolved. (9) Jaundice Is this a current diagnosis for this admission?: Yes Plan: Resolved (10) Leukocytosis Qualifiers: Leukocytosis type: leukemoid reaction Qualified Code(s): D72.823 - Leukemoid reaction Is this a current diagnosis for this admission?: Yes Plan: Resolved. (11) Metabolic acidosis Is this a current diagnosis for this admission?: Yes Plan: Resolved. (12) Sepsis Qualifiers: Sepsis type: sepsis due to unspecified organism Sepsis acute organ dysfunction status: with acute organ dysfunction Severe sepsis acute organ dysfunction type: acute renal failure Acute renal failure type: unspecified Severe sepsis shock status: unspecified Qualified Code(s): A41.9 - Sepsis, unspecified organism; R65.20 - Severe sepsis without septic shock; N17.9 - Acute kidney failure, unspecified Is this a current diagnosis for this admission?: Yes Plan: Resolved (13) Tachycardia Is this a current diagnosis for this admission?: Yes - Plan Summary Summary: COVID19 test pending for SNF placement; no suspicion for active infection at this time. - Time Time Spent with patient: 15-24 minutes Medications reviewed and adjusted accordingly: Yes Anticipated discharge: SNF Within: when bed available
[2019-12-29] MEDS: FINASTERIDE 5 MG TABLET PO SCH (21:28)
[2019-12-30] MEDS: LEVOTHYROXINE SODIUM 0.025 MG TABLET PO SCH (06:05)
[2019-12-30 06:33] LABS: HEMATOCRIT 27.5 % (37.9-51.0); HEMOGLOBIN 9.5 g/dL (13.5-17.0); MEAN CORPUSCULAR HEMOGLOBIN 29.7 pg (27.0-33.4); MEAN CORPUSCULAR HGB CONC 34.3 g/dL (32.0-36.0); MEAN CORPUSCULAR VOLUME 87 fl (80-97); PLATELET COUNT 209 10^3/uL (150-450); RED BLOOD COUNT 3.18 10^6/uL (4.35-5.55); WHITE BLOOD COUNT 7.4 10^3/uL (4.0-10.5)
[2019-12-30] MEDS: ENOXAPARIN SODIUM INJ 40 MG/0.4 ML DISP.SYRIN SUBCUT SCH (10:16)
[2019-12-30] MEDS: CALCIUM CARBONATE 600 MG/VITAMIN D3 400 UNIT TABLET PO SCH ×2 (10:16→17:55)
[2019-12-30 14:43] LABS: APPEARANCE,URINE TURBID; BILIRUBIN,URINE NEGATIVE (NEGATIVE); GLUCOSE, URINE NEGATIVE (NEGATIVE); KETONES,URINE NEGATIVE (NEGATIVE); LEUKOCYTE ESTERASE,URINE LARGE (NEGATIVE); NITRITE,URINE NEGATIVE (NEGATIVE); PROTEIN,URINE 100 mg/dL (NEGATIVE); URINE SPECIFIC GRAVITY 1.003; UROBILINOGEN,URINE NEGATIVE mg/dL (<2.0)
[2019-12-30 14:43] LABS: ANION GAP 9 (5-19); BLOOD UREA NITROGEN 9 mg/dL (7-20); CARBON DIOXIDE 24 mmol/L (22-30); CHLORIDE 97 mmol/L (98-107); GLUCOSE 94 mg/dL (75-110); POTASSIUM 4.1 mmol/L (3.6-5.0)
[2019-12-30 14:44] LABS: COLOR,URINE YELLOW
--- NOTE | 2019-12-30 15:59 | PDOC PROGRESS REPORT ---
Subjective Progress Note for:: 12/30/19 Subjective:: The patient was seen on afternoon rounds. He is found sitting up to the edge of the bed, comfortably, on room air. S He reports he is feeling well today. Slight abd discomfort at the incisional/stapled site. Tolerating regular diet. He denies fever, chills, chest pain, palpitations, dyspnea, orthopnea. Denies nausea, vomiting, diarrhea. He has no questions or concerns at this time. Unfortunately, patient continues to require straight caths with large volume o utput. To have reinserted Lynn. Nursing noted purulent fluid; urinalysis reveals UTI. Reason For Visit: BOWEL OBSTRUCTION Physical Exam Vital Signs: Temp Pulse Resp BP Pulse Ox 98.7 F 101 H 17 96/80 L 100 12/30/19 10:51 12/30/19 10:51 12/30/19 10:51 12/30/19 10:51 12/30/19 10:51 Intake & Output 12/29/19 12/30/19 12/31/19 06:59 06:59 06:59 Intake Total 3650 1676 1188 Output Total 2750 1800 25 Balance 900 -124 1163 Weight 58.5 kg 57.6 kg 57.6 kg General appearance: PRESENT: no acute distress, thin, well-developed, well- nourished Head exam: PRESENT: atraumatic, normocephalic Eye exam: PRESENT: conjunctiva pink, EOMI, PERRLA. ABSENT: scleral icterus Mouth exam: PRESENT: moist, tongue midline Respiratory exam: PRESENT: clear to auscultation aldair, symmetrical, unlabored, other - Room air. ABSENT: rales, rhonchi, wheezes Cardiovascular exam: PRESENT: RRR, +S1, +S2. ABSENT: diastolic murmur, rubs, systolic murmur Pulses: PRESENT: normal dorsalis pedis pul Vascular exam: PRESENT: normal capillary refill GI/Abdominal exam: PRESENT: normal bowel sounds, soft, other - Colostomy with stool output. Slight induration to surgical site surrounding madelin; no erythema or drainage.. ABSENT: distended, guarding, mass, organolmegaly, rebound, tenderness Rectal exam: PRESENT: deferred Gentrourinary exam: PRESENT: indwelling catheter Extremities exam: PRESENT: full ROM, pedal edema - +1 bilaterally. ABSENT: calf tenderness, clubbing Neurological exam: PRESENT: alert, awake, oriented to person, oriented to place, oriented to time, oriented to situation, CN II-XII grossly intact, other - Intermittently forgetful/confused. ABSENT: motor sensory deficit Psychiatric exam: PRESENT: appropriate affect, normal mood. ABSENT: homicidal ideation, suicidal ideation Skin exam: PRESENT: dry, warm. ABSENT: cyanosis, rash Results Laboratory Results: 12/30/19 06:00 12/30/19 06:00 12/30/19 12/30/19 12/30/19 06:00 06:00 14:17 WBC 7.4 RBC 3.18 L Hgb 9.5 L Hct 27.5 L MCV 87 MCH 29.7 MCHC 34.3 RDW 17.0 H Plt Count 209 Sodium 129.5 L Potassium 4.1 Chloride 97 L Carbon Dioxide 24 Anion Gap 9 BUN 9 Creatinine 0.64 Est GFR ( Amer) > 60 Glucose 94 Calcium 8.0 L Urine Color YELLOW Urine Appearance TURBID Urine pH 6.0 Ur Specific [place] 1.003 Urine Protein 100 H Urine Glucose (UA) NEGATIVE Urine Ketones NEGATIVE Urine Blood LARGE H Urine Nitrite NEGATIVE Ur Leukocyte Esterase LARGE H Urine WBC (Auto) >182 Urine RBC (Auto) 72 12/14/19 12/14/19 14:24 14:24 Creatine Kinase 32 L Troponin I < 0.012 NT-Pro-B Natriuret Pep 1240 H Impressions: Abdomen/Pelvis CT 12/14/19 00:00 IMPRESSION: 1. Massively dilated stool-filled redundant sigmoid colon. Distention also extends to involve the descending colon. While sigmoid volvulus remains in the differential, it is felt to be less likely as a clear point of twisting or fixed obstruction is not identified. 2. Mild ascites. KUB X-Ray 12/14/19 15:01 IMPRESSION: Marked urinary bladder distention Distended tortuous sigmoid colon worrisome for sigmoid volvulus Chest X-Ray 12/16/19 04:51 IMPRESSION: Stable chest status post extubation. Assessment and Plan - Diagnosis (1) UTI (urinary tract infection) due to urinary indwelling catheter Qualifiers: Indwelling urinary catheter type: indwelling urethral catheter Encounter type: initial encounter Qualified Code(s): T83.511A - Infection and inflammatory reaction due to indwelling urethral catheter, initial encounter; N39.0 - Urinary tract infection, site not specified Is this a current diagnosis for this admission?: Yes Plan: Patient with Lynn catheter; removed 12/28/2019. Failed void trials and straight cathing x36 hours. Lynn catheter reinserted today. Urinalysis reveals UTI. Urine culture pending. Have started IV Rocephin. (2) Urinary retention Is this a current diagnosis for this admission?: Yes Plan: Likely secondary to acute illness, sepsis, and prolonged Lynn placement. Now with UTI. Continue Proscar. Failed trial of straight cathing every 6 hours. Continue to require straight cath with large volume output at each attempt. Lynn catheter reinserted. Immediate output of 1 L. Outpatient urology follow-up. (3) Sigmoid volvulus Is this a current diagnosis for this admission?: Yes Plan: Resolving ileus 69-year-old male status post exploratory laparotomy, colectomy, colostomy; Teague's procedure; multiple comorbidities General surgery has signed off. Colostomy bag with good liquid stool output (4) Acute blood loss anemia Is this a current diagnosis for this admission?: Yes Plan: Resolved Likely due to invasive abdominal surgery Transfused 4 units PRBC Has now stabilized (5) Acute renal failure (ARF) Qualifiers: Acute renal failure type: with acute tubular necrosis Qualified Code(s): N17.0 - Acute kidney failure with tubular necrosis Is this a current diagnosis for this admission?: Yes Plan: Resolved to baseline/normal Due to hypovolemia and sepsis Treated with IV fluids and antibiotics (6) Debility Is this a current diagnosis for this admission?: Yes Plan: Deconditioning and weakness PT/Ot consulted. Discharge planning consulted for SNF placement. (7) Delirium due to another medical condition, acute, hypoactive Is this a current diagnosis for this admission?: Yes Plan: Resolved. Occurred due to critical illness, sleep deprivation, renal failure, superimposed dementia (8) Hypernatremia Is this a current diagnosis for this admission?: Yes Plan: Resolved. Likely due to hypovolemia Repleted volume (9) Hypokalemia Is this a current diagnosis for this admission?: Yes Plan: Resolved. (10) Jaundice Is this a current diagnosis for this admission?: Yes Plan: Resolved (11) Leukocytosis Qualifiers: Leukocytosis type: leukemoid reaction Qualified Code(s): D72.823 - Leukemoid reaction Is this a current diagnosis for this admission?: Yes Plan: Resolved. (12) Metabolic acidosis Is this a current diagnosis for this admission?: Yes Plan: Resolved. (13) Sepsis Qualifiers: Sepsis type: sepsis due to unspecified organism Sepsis acute organ dysfunction status: with acute organ dysfunction Severe sepsis acute organ dysfunction type: acute renal failure Acute renal failure type: unspecified Severe sepsis shock status: unspecified Qualified Code(s): A41.9 - Sepsis, unspecified organism; R65.20 - Severe sepsis without septic shock; N17.9 - Acute kidney failure, unspecified Is this a current diagnosis for this admission?: Yes Plan: Resolved (14) Tachycardia Is this a current diagnosis for this admission?: Yes - Plan Summary Summary: COVID19 test pending for SNF placement; no suspicion for active infection at this time. - Time Time Spent with patient: 25-34 minutes Medications reviewed and adjusted accordingly: Yes Anticipated discharge: SNF Within: when bed available
[2019-12-30] MEDS ORDERED: FUROSEMIDE 20 MG TABLET PO ONE (17:00)
[2019-12-30] MEDS: CEFTRIAXONE 1 GM/D5W RTU 1 GM/50 ML RTUPB IV SCH ×2 (17:55→19:39)
[2019-12-30] MEDS: FINASTERIDE 5 MG TABLET PO SCH (21:58)
[2019-12-31] MEDS: LEVOTHYROXINE SODIUM 0.025 MG TABLET PO SCH (05:46)
[2019-12-31 06:41] LABS: HEMATOCRIT 29.6 % (37.9-51.0); HEMOGLOBIN 10.3 g/dL (13.5-17.0); MEAN CORPUSCULAR HEMOGLOBIN 29.9 pg (27.0-33.4); MEAN CORPUSCULAR HGB CONC 34.9 g/dL (32.0-36.0); MEAN CORPUSCULAR VOLUME 86 fl (80-97); PLATELET COUNT 256 10^3/uL (150-450); RED BLOOD COUNT 3.46 10^6/uL (4.35-5.55); RED CELL DISTRIBUTION WIDTH 16.7 % (11.5-14.0); WHITE BLOOD COUNT 9.2 10^3/uL (4.0-10.5)
[2019-12-31 07:04] LABS: ANION GAP 6 (5-19); BLOOD UREA NITROGEN 12 mg/dL (7-20); CALCIUM 8.4 mg/dL (8.4-10.2); CARBON DIOXIDE 27 mmol/L (22-30); CHLORIDE 98 mmol/L (98-107); GLUCOSE 83 mg/dL (75-110); POTASSIUM 4.6 mmol/L (3.6-5.0)
[2019-12-31] MEDS: CALCIUM CARBONATE 600 MG/VITAMIN D3 400 UNIT TABLET PO SCH ×2 (10:00→18:34)
[2019-12-31] MEDS: ENOXAPARIN SODIUM INJ 40 MG/0.4 ML DISP.SYRIN SUBCUT SCH (10:00)
[2019-12-31] MEDS: CEFTRIAXONE 1 GM/D5W RTU 1 GM/50 ML RTUPB IV SCH (18:00)
[2019-12-31] MEDS: FINASTERIDE 5 MG TABLET PO SCH (21:38)
[2020-01-01] MEDS: LEVOTHYROXINE SODIUM 0.025 MG TABLET PO SCH (05:45)
[2020-01-01 06:07] LABS: HEMATOCRIT 29.4 % (37.9-51.0); HEMOGLOBIN 10.1 g/dL (13.5-17.0); MEAN CORPUSCULAR HEMOGLOBIN 29.8 pg (27.0-33.4); MEAN CORPUSCULAR HGB CONC 34.3 g/dL (32.0-36.0); MEAN CORPUSCULAR VOLUME 87 fl (80-97); PLATELET COUNT 270 10^3/uL (150-450); RED BLOOD COUNT 3.38 10^6/uL (4.35-5.55); RED CELL DISTRIBUTION WIDTH 17.2 % (11.5-14.0); WHITE BLOOD COUNT 10.9 10^3/uL (4.0-10.5)
--- NOTE | 2020-01-01 08:22 | PDOC TRANSFER SUMMARY ---
Impression - Admit/DC Date/PCP Admission Date/Primary Care Provider: 12/14/19 16:11 Discharge Date: 01/01/20 - Discharge Diagnosis (1) Tachycardia Is this a current diagnosis for this admission?: Yes (2) Acute renal failure (ARF) Is this a current diagnosis for this admission?: Yes (3) Delirium due to another medical condition, acute, hypoactive Is this a current diagnosis for this admission?: Yes (4) Hypernatremia Is this a current diagnosis for this admission?: Yes (5) Jaundice Is this a current diagnosis for this admission?: Yes (6) Leukocytosis Is this a current diagnosis for this admission?: Yes (7) Metabolic acidosis Is this a current diagnosis for this admission?: Yes (8) Sepsis Is this a current diagnosis for this admission?: Yes (9) Sigmoid volvulus Is this a current diagnosis for this admission?: Yes - Assessment Summary: COVID19 test pending for SNF placement; no suspicion for active infection at this time. 01/01/2020 [facility] Continue the Keflex 500 mg for the next 7 days Proscar 5 mg nightly and Synthroid 0.025 mg every morning were the prescriptions written Other medications as documented Follow-up with [facility] as recommended Patient had a long hospitalization with over 2 weeks, initially being admitted through the emergency room on 13 December. Presented to the ER week and ambulatory with abdominal distention and shortness of breath. Was seen by general surgery who felt like patient had a bowel obstruction, sigmoid volvulus. Patient also appeared to be septic, with acute renal failure, metabolic acidosis. Patient was admitted to the ICU for his sepsis and bowel obstruction, started on IV Zosyn. On 12/14 the patient went to the OR where a sigmoid colectomy, Teague's pouch a nd left colostomy was performed as well as drainage of pelvis Remained in the ICU until 12/21/2019 at which time he was transferred to the floor, 6 days postop. Patient's mental status has always been questionable and somewhat altered and his baseline is unknown. It is believed patient has underlying dementia and a poor historian Patient's potassium has been low at times and patient's glucose has also been low Patient has had multiple rounds of IV supplements as well as IV fluids. At the time of discharge patient is being treated for a UTI probably secondary to his Lynn catheter. Surgery actually signed off the case on 12/26/2019. Surgery felt like the patient could be seen as an outpatient at [facility] in approximately 7 to 10 days from that date, should be sometime the week of January 05, for staple removal. Patient is medically stable for discharge. Diagnosis UTI, urinary retention, sigmoid volvulus, acute blood loss anemia, acute renal failure, Maci, hypernatremia, hypokalemia, - Additional Information Resuscitation Status: Full Code Discharge Diet: Diabetic Discharge Activity: Activity As Tolerated Referrals: [facility] [Provider Group] Prescriptions: Cephalexin Monohydrate [Keflex 500 mg Capsule] 500 mg PO TID 7 Days #21 capsule Finasteride [Proscar 5 mg Tablet] 5 mg PO QHS 30 Days #30 tablet Levothyroxine Sodium [Synthroid 0.025 mg Tablet] 0.025 mg PO Q6AM 30 Days #30 tablet Home Medications: Calcium Carbonate/Vitamin D3 [Caltrate 600-Vit D3 400 Tablet] 1 tab PO BID tablet 12/31/19 Cephalexin Monohydrate [Keflex 500 mg Capsule] 500 mg PO TID 7 Days #21 capsule 12/31/19 Finasteride [Proscar 5 mg Tablet] 5 mg PO QHS 30 Days #30 tablet 12/31/19 Levothyroxine Sodium [Synthroid 0.025 mg Tablet] 0.025 mg PO Q6AM 30 Days #30 tablet 12/31/19 History of Present Illiness History of Present Illness: ROCCO PADRON is a 69 year old male admitted through the emergency room on 12/14/2019 abdominal pain and abdominal distention with shortness of breath. Patient appeared to have a large bowel obstruction secondary to a volvulus. Patient was taken to the OR he is now 6 days postop and we were asked if we could medically manage the patient. Surgery will continue to consult on a regular basis concerning his postoperative care. Admission patient appeared to be septic, as well as acute kidney injury, jaundice, hypotension, metabolic acidosis, altered mental status On 12/15/2019 the patient went to the OR where a laparotomy with sigmoid colectomy, Teague's pouch and left colostomy was performed. Estimated blood loss 75 cc. 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 Since that time patient has been in the ICU and was transferred to the floor yesterday. We were asked to see the patient in consultation and to assume medical management today. Yesterday's note by the newspaper photo editor listed his problems as delirium secondary to other medical conditions, sigmoid volvulus that has resolved with surgery, acute tubular necrosis which is resolved, jaundice which is improving, hyper natremia which is improving. Even today patient continues to be a poor historian and appears either demented or confused Physical Exam Vital Signs: Temp Pulse Resp BP Pulse Ox 97.8 F 158 H 19 107/68 100 01/01/20 00:01 01/01/20 00:01 01/01/20 00:01 01/01/20 00:01 01/01/20 00:01 Intake & Output 12/31/19 01/01/20 01/02/20 06:59 06:59 06:59 Intake Total 1428 2246 Output Total 7852 2470 Balance -1072 -224 Weight 50.3 kg 48.1 kg Results Laboratory Results: WBC 10.9 10^3/uL (4.0-10.5) H 01/01/20 05:12 RBC 3.38 10^6/uL (4.35-5.55) L 01/01/20 05:12 Hgb 10.1 g/dL (13.5-17.0) L 01/01/20 05:12 Hct 29.4 % (37.9-51.0) L 01/01/20 05:12 MCV 87 fl (80-97) 01/01/20 05:12 MCH 29.8 pg (27.0-33.4) 01/01/20 05:12 MCHC 34.3 g/dL (32.0-36.0) 01/01/20 05:12 RDW 17.2 % (11.5-14.0) H 01/01/20 05:12 Plt Count 270 10^3/uL (150-450) 01/01/20 05:12 Lymph % (Auto) Not Reportable 12/28/19 06:36 [place] % (Auto) Not Reportable 12/28/19 06:36 Eos % (Auto) Not Reportable 12/28/19 06:36 Baso % (Auto) Not Reportable 12/28/19 06:36 Absolute Neuts (auto) Not Reportable 12/28/19 06:36 Absolute Lymphs (auto) Not Reportable 12/28/19 06:36 Absolute Monos (auto) Not Reportable 12/28/19 06:36 Absolute Eos (auto) Not Reportable 12/28/19 06:36 Absolute Basos (auto) Not Reportable 12/28/19 06:36 Total Counted 100 12/28/19 06:36 Seg Neutrophils % Not Reportable 12/28/19 06:36 Seg Neuts % (Manual) 55 % (42-78) 12/28/19 06:36 Band Neutrophils % 1 % (3-5) L 12/28/19 06:36 Lymphocytes % (Manual) 23 % (13-45) 12/28/19 06:36 Atypical Lymphs % 1 % (0) 12/28/19 06:36 Monocytes % (Manual) 19 % (3-13) H 12/28/19 06:36 Eosinophils % (Manual) 1 % (0-6) 12/28/19 06:36 Basophils % (Manual) 0 % (0-2) 12/28/19 06:36 Abs Neuts (Manual) 2.7 10^3/uL (1.7-8.2) 12/28/19 06:36 Abs Lymphs (Manual) 1.2 10^3/uL (0.5-4.7) 12/28/19 06:36 Abs Monocytes (Manual) 0.9 10^3/uL (0.1-1.4) 12/28/19 06:36 Absolute Eos (Manual) 0.0 10^3/uL (0.0-0.6) 12/28/19 06:36 Abs Basophils (Manual) 0.0 10^3/uL (0.0-0.2) 12/28/19 06:36 Nucleated RBCs 7 /100 WBC (0) 12/19/19 06:08 Toxic Granulation 1+ 12/27/19 05:00 Toxic Vacuolation PRESENT 12/27/19 05:00 Platelet Estimate Cancelled 12/23/19 04:53 Platelet Comment ADEQUATE 12/28/19 06:36 Polychromasia SLIGHT 12/27/19 05:00 Poikilocytosis SLIGHT 12/27/19 05:00 Anisocytosis 2+ 12/28/19 06:36 Target Cells 1+ 12/19/19 06:08 Ovalocytes SLIGHT 12/27/19 05:00 Arnav Cells SLIGHT 12/18/19 03:10 Schistocytes SLIGHT 12/27/19 05:00 PT 18.3 SEC (11.4-15.4) H 12/15/19 08:11 INR 1.50 12/15/19 08:11 APTT 36.6 SEC (23.5-35.8) H 12/15/19 08:11 Carbonic Acid 0.65 mmol/L (1.05-1.35) L 12/16/19 04:05 HCO3/H2CO3 Ratio 24:1 12/16/19 04:05 ABG pH 7.49 (7.35-7.45) H 12/16/19 04:05 ABG pCO2 21.5 mmHg (35-45) L 12/16/19 04:05 ABG pO2 112.2 mmHg (80-100) H 12/16/19 04:05 ABG HCO3 16.2 mmol/L (20-24) L 12/16/19 04:05 ABG Total CO2 16.8 mmol/L (23-27) L 12/16/19 04:05 ABG O2 Saturation 98.5 % (94-98) H 12/16/19 04:05 ABG Base Excess -5.7 mmol/L 12/16/19 04:05 FiO2 21% 12/16/19 04:05 Sodium 131.1 mmol/L (137-145) L 12/31/19 06:25 Potassium 4.6 mmol/L (3.6-5.0) 12/31/19 06:25 Chloride 98 mmol/L (98-107) 12/31/19 06:25 Carbon Dioxide 27 mmol/L (22-30) 12/31/19 06:25 Anion Gap 6 (5-19) 12/31/19 06:25 BUN 12 mg/dL (7-20) 12/31/19 06:25 Creatinine 0.79 mg/dL (0.52-1.25) 12/31/19 06:25 Est GFR ( Amer) > 60 (>60) 12/31/19 06:25 Est GFR (MDRD) Non-Af > 60 (>60) 12/31/19 06:25 Glucose 83 mg/dL (75-110) 12/31/19 06:25 POC Glucose 138 mg/dL (70-110) H 12/28/19 06:11 Hemoglobin A1c % 4.9 % (4.7-6.0) 12/29/19 05:46 Lactic Acid 1.7 mmol/L (0.7-2.1) 12/16/19 04:05 Calcium 8.4 mg/dL (8.4-10.2) 12/31/19 06:25 Phosphorus 3.9 mg/dL (2.5-4.5) 12/20/19 06:05 Magnesium 2.0 mg/dL (1.6-2.3) 12/20/19 06:05 Total Bilirubin 1.0 mg/dL (0.2-1.3) 12/22/19 09:05 Direct Bilirubin 0.5 mg/dL (0.0-0.4) H 12/22/19 09:05 Neonat Total Bilirubin Not Reportable 12/22/19 09:05 Neonat Direct Bilirubin Not Reportable 12/22/19 09:05 Neonat Indirect Bili Not Reportable 12/22/19 09:05 AST 35 U/L (17-59) 12/22/19 09:05 ALT 13 U/L (<50) 12/22/19 09:05 Alkaline Phosphatase 544 U/L (38-126) H 12/22/19 09:05 Ammonia < 8.7 umol/L (9-33) L 12/22/19 09:05 Creatine Kinase 32 U/L (55-170) L 12/14/19 14:24 Troponin I < 0.012 ng/mL 12/14/19 14:24 NT-Pro-B Natriuret Pep 1240 pg/mL (<125) H 12/14/19 14:24 Total Protein 6.3 g/dL (6.3-8.2) 12/22/19 09:05 Albumin 2.7 g/dL (3.5-5.0) L 12/22/19 09:05 Lipase 483.2 U/L (23-300) H 12/14/19 14:24 TSH 6.34 uIU/mL (0.47-4.68) H 12/29/19 05:46 Free T4 1.31 ng/dL (0.78-2.19) 12/29/19 05:46 Free T3 pg/mL 2.06 pg/mL (2.77-5.27) L 12/29/19 05:46 Urine Color YELLOW 12/30/19 14:17 Urine Appearance TURBID 12/30/19 14:17 Urine pH 6.0 (5.0-9.0) 12/30/19 14:17 Ur Specific [place] 1.003 12/30/19 14:17 Urine Protein 100 mg/dL (NEGATIVE) H 12/30/19 14:17 Urine Glucose (UA) NEGATIVE mg/dL (NEGATIVE) 12/30/19 14:17 Urine Ketones NEGATIVE mg/dL (NEGATIVE) 12/30/19 14:17 Urine Blood LARGE (NEGATIVE) H 12/30/19 14:17 Urine Nitrite NEGATIVE (NEGATIVE) 12/30/19 14:17 Urine Bilirubin NEGATIVE (NEGATIVE) 12/30/19 14:17 Urine Urobilinogen NEGATIVE mg/dL (<2.0) 12/30/19 14:17 Ur Leukocyte Esterase LARGE (NEGATIVE) H 12/30/19 14:17 Urine WBC (Auto) >182 /HPF 12/30/19 14:17 Urine RBC (Auto) 72 /HPF 12/30/19 14:17 U Hyaline Cast (Auto) 3 /LPF 12/23/19 14:46 Urine Bacteria (Auto) 1+ /HPF 12/30/19 14:17 Urine WBC Clumps MANY /HPF 12/30/19 14:17 Squamous Epi Cells Auto <1 /HPF 12/23/19 14:46 U Non-Squamous Epis Auto 17 /HPF 12/30/19 14:17 Urine Mucus (Auto) RARE /LPF 12/27/19 17:32 Urine Ascorbic Acid NEGATIVE (NEGATIVE) 12/30/19 14:17 COVID-19 Source NASOPHARYNGEAL 12/28/19 17:23 COVID-19 (GABRIEL) NOT DETECTED 12/28/19 17:23 Slides for Path Review Cancelled 12/23/19 04:53 Blood Type B POSITIVE 12/23/19 09:23 Blood Type Confirm B POSITIVE 12/15/19 15:35 Antibody Screen NEGATIVE 12/23/19 09:23 Crossmatch See Detail 12/23/19 09:23 12/14/19 14:24 Troponin I < 0.012 NT-Pro-B Natriuret Pep 1240 H Impressions: Abdomen/Pelvis CT 12/14/19 00:00 IMPRESSION: 1. Massively dilated stool-filled redundant sigmoid colon. Distention also extends to involve the descending colon. While sigmoid volvulus remains in the differential, it is felt to be less likely as a clear point of twisting or fixed obstruction is not identified. 2. Mild ascites. Chest X-Ray 12/14/19 15:01 IMPRESSION: Right basilar atelectasis Gaseous distention of bowel loops under the right and left hemidiaphragm KUB X-Ray 12/14/19 15:01 IMPRESSION: Marked urinary bladder distention Distended tortuous sigmoid colon worrisome for sigmoid volvulus Chest X-Ray 12/15/19 17:04 IMPRESSION: No focal infiltrates. Tubes and lines in positioning. Chest X-Ray 12/16/19 04:51 IMPRESSION: Stable chest status post extubation. Stroke Is this a Stroke Patient?: No Acute Heart Failure - Is this a Heart Failure Patient?: No
[2020-01-01] MEDS: ENOXAPARIN SODIUM INJ 40 MG/0.4 ML DISP.SYRIN SUBCUT SCH (10:00)
[2020-01-01] MEDS: CALCIUM CARBONATE 600 MG/VITAMIN D3 400 UNIT TABLET PO SCH (10:00)
[2020-01-01 14:27] LABS: APPEARANCE,URINE SLIGHTLY-CLOUDY; BILIRUBIN,URINE NEGATIVE (NEGATIVE); COLOR,URINE YELLOW; GLUCOSE, URINE NEGATIVE (NEGATIVE); KETONES,URINE NEGATIVE (NEGATIVE); LEUKOCYTE ESTERASE,URINE LARGE (NEGATIVE); NITRITE,URINE NEGATIVE (NEGATIVE); PROTEIN,URINE NEGATIVE (NEGATIVE); URINE SPECIFIC GRAVITY 1.003; UROBILINOGEN,URINE NEGATIVE mg/dL (<2.0)
[2020-01-01 15:29] VITALS: BP 111/64
== END 2020-01-01 15:28 | DRG 853 ==
LOC: ER 13:47 → EH 16:11 → ICU 18:59 → 4N 12-20 14:50
PROVIDERS: ADMIT Family Medicine; ATTEND Physician Assistant
PROC: 0D1E0Z4 Bypass Large Intestine to Cutaneous, Open Approach (ICD-10-PCS; 2019-12-15)
PROC: 30233N1 Transfusion of Nonautologous Red Blood Cells into Peripheral Vein, Percutaneous Approach (ICD-10-PCS; 2019-12-15)
PROC: 0DTN0ZZ Resection of Sigmoid Colon, Open Approach (ICD-10-PCS; principal; 2019-12-15 15:15)
DX: A41.9 Sepsis, unspecified organism (principal); N17.0 Acute kidney failure with tubular necrosis; T83.511A Infection and inflammatory reaction due to indwelling urethral catheter, initial encounter; K55.049 Acute infarction of large intestine, extent unspecified; K55.1 Chronic vascular disorders of intestine; E87.0 Hyperosmolality and hypernatremia; E87.2 Acidosis; R17 Unspecified jaundice; D62 Acute posthemorrhagic anemia; F03.90 Unspecified dementia, unspecified severity, without behavioral disturbance, psychotic disturbance, mood disturbance, and anxiety; Z03.818 Encounter for observation for suspected exposure to other biological agents ruled out; R41.0 Disorientation, unspecified; R33.9 Retention of urine, unspecified; E87.6 Hypokalemia; Z79.899 Other long term (current) drug therapy; R65.20 Severe sepsis without septic shock; I10 Essential (primary) hypertension; E86.0 Dehydration; R53.81 Other malaise
CPT/HCPCS: 00790; 36415; 36430; 51702; 71045; 74018; 74176; 80048; 80053; 81001; 82140; 82550; 82803; 82962; 83036; 83605; 83690; 83735; 83880; 84100; 84439; 84443; 84481; 84484; 85025; 85027; 85610; 85730; 86850; 86900; 86901; 86920; 87070; 87086; 87088; 87186; 87635; 88305; 88307; 93005; 93010; 94002; 94003; 96374; 96375; 99232; 99285; 99291; C1751; C9290; J0131; J0330; J0696; J1170; J1630; J1642; J1650; J1815; J2185; J2250; J2405; J2543; J3010; J3475; J3480; J3490; J7030; J7060; J7120; J7121; P9016

== ENCOUNTER 2020-08-21 14:37 | Inpatient (IN) | payer MEDICARE, MEDICAID ==
--- NOTE | 2020-08-21 15:41 | ER Document Report ---
ED Medical Screen (RME) - General Chief Complaint: Leg Pain Stated Complaint: LEG PAIN Time Seen by Provider: 08/21/20 15:36 Mode of Arrival: Wheelchair Information source: Patient Notes: 70-year-old male presented to ED for complaint of pain to the lower back that goes down both legs. He states is been happening for about a year but is much worse lately. He states that he goes to a [place] [facility] and she has sent him for some x-rays but nothing seems to be helping his back. He states that he does not know what is going wrong with his back and he is in a lot of pain. He states he did recently have surgery on his abdomen which caused him to have a colostomy. He is alert oriented respirations regular nonlabored at this time. I have greeted and performed a rapid initial assessment of this patient. A comprehensive ED assessment and evaluation of the patient, analysis of test results and completion of medical decision making process will be conducted by an additional ED providers. - Related Data Allergies/Adverse Reactions: No Known Allergies Allergy (Verified 12/14/19 15:43) Past Medical History - Immunizations Hx Diphtheria, Pertussis, Tetanus Vaccination: No - greater than 5 years Physical Exam - Vital signs Vitals: Temp Pulse Resp BP Pulse Ox 98.0 F 90 18 132/69 H 100 08/21/20 14:48 08/21/20 14:48 08/21/20 14:48 08/21/20 14:48 08/21/20 14:48 Course - Vital Signs Vital signs: Temp Pulse Resp BP Pulse Ox 98.0 F 90 18 132/69 H 100 08/21/20 14:48 08/21/20 14:48 08/21/20 14:48 08/21/20 14:48 08/21/20 14:48
--- NOTE | 2020-08-21 16:52 | RADIOLOGY REPORT (SQ) ---
EXAM DESCRIPTION: L SPINE WHOLE IMAGES COMPLETED DATE/TIME: 08/21/2020 4:38 pm REASON FOR STUDY: Low back pain going down both legs COMPARISON: CT of the abdomen and pelvis from 12/14/2019 P NUMBER OF VIEWS: Five views including obliques. TECHNIQUE: AP, lateral, oblique, and sacral radiographic images acquired of the lumbar spine. LIMITATIONS: None. FINDINGS: MINERALIZATION: Sclerotic appearance of the osseous structures. SEGMENTATION: There are 5 lumbar-type vertebral bodies. There is no transitional segment at the lumb osacral junction ALIGNMENT: Grade 1 retrolisthesis of L5 relative to S1. VERTEBRAE: No acute fracture. DISCS: The L5-S1 intervertebral disc space is narrowed. POSTERIOR ELEMENTS: Intact. HARDWARE: None in the spine. PARASPINAL SOFT TISSUES: Atherosclerotic calcification of the abdominal aorta. PELVIS: The sacrum is obscured by overlying bowel. OTHER: No other findings. IMPRESSION: Sclerotic appearance of the osseous structures - does the patient have a history of joby gnancy? - without a superimposed acute fracture or malalignment of the lumbar spine. TECHNICAL DOCUMENTATION: JOB ID: [id number] 2010 [employer]- All Rights Reserved Reading location - IP/workstation name: [email or web address]
[2020-08-21 16:58] LABS: ABSOLUTE EOSINOPHILS # (AUTO) 0.1 10^3/uL (0.0-0.6); ABSOLUTE LYMPHOCYTES (AUTO) 2.2 10^3/uL (0.5-4.7); ABSOLUTE MONOCYTES (AUTO) 0.5 10^3/uL (0.1-1.4); ABSOLUTE NEUT (AUTO) 4.3 10^3/uL (1.7-8.2); BASOPHILS % (AUTO) 0.4 % (0-2); EOSINOPHILS % (AUTO) 0.8 % (0-6); HEMATOCRIT 34.9 % (37.9-51.0); HEMOGLOBIN 11.8 g/dL (13.5-17.0); LYMPHOCYTES % (AUTO) 31.4 % (13-45); MEAN CORPUSCULAR HEMOGLOBIN 31.7 pg (27.0-33.4); MEAN CORPUSCULAR VOLUME 93 fl (80-97); MONOCYTES % (AUTO) 7.6 % (3-13); PLATELET COUNT 176 10^3/uL (150-450); RED BLOOD COUNT 3.74 10^6/uL (4.35-5.55); RED CELL DISTRIBUTION WIDTH 14.9 % (11.5-14.0); SEGMENTED NEUTROPHILS % (AUTO) 59.8 % (42-78); TOTAL CELLS COUNTED % (AUTO) 100 %; WHITE BLOOD COUNT 7.1 10^3/uL (4.0-10.5)
[2020-08-21 17:06] LABS: APPEARANCE,URINE SLIGHTLY-CLOUDY; BILIRUBIN,URINE NEGATIVE (NEGATIVE); COLOR,URINE YELLOW; GLUCOSE, URINE NEGATIVE (NEGATIVE); KETONES,URINE NEGATIVE (NEGATIVE); LEUKOCYTE ESTERASE,URINE SMALL (NEGATIVE); NITRITE,URINE NEGATIVE (NEGATIVE); PROTEIN,URINE NEGATIVE (NEGATIVE); UROBILINOGEN,URINE NEGATIVE mg/dL (<2.0)
[2020-08-21 17:17] LABS: ALBUMIN 4.1 g/dL (3.5-5.0); ANION GAP 9 (5-19); ASPARTATE AMINO TRANSFERASE 50 U/L (17-59); BILIRUBIN,DIRECT 0.1 mg/dL (0.0-0.4); BILIRUBIN,TOTAL 0.8 mg/dL (0.2-1.3); BLOOD UREA NITROGEN 11 mg/dL (7-20); CALCIUM 9.4 mg/dL (8.4-10.2); CARBON DIOXIDE 28 mmol/L (22-30); CHLORIDE 99 mmol/L (98-107); GLUCOSE 97 mg/dL (75-110); POTASSIUM 3.8 mmol/L (3.6-5.0); TOTAL PROTEIN 7.7 g/dL (6.3-8.2)
[2020-08-21 17:38] LABS: ALKALINE PHOSPHATASE 2965 U/L (38-126)
--- NOTE | 2020-08-21 18:26 | ER Document Report ---
ED General - General Chief Complaint: Leg Pain Stated Complaint: LEG PAIN Time Seen by Provider: 08/21/20 15:36 Primary Care Provider: JUAREZ AVENDAÑO PA-C [Primary Care Provider] - Follow up as needed Mode of Arrival: Wheelchair - [facility] Notes: Patient is a 70-year-old male who presents with low back pain. Patient states he has had symptoms for about 1 year. Pain is in his lumbar spine and radiates down the front and back of both of his legs. He states that he has some pain wi th ambulation. Patient saw his nurse practitioner who ordered x-rays but did not hear the results of his back x-rays. Patient states that she was concerned he could have bone cancer. He states he sometimes takes Advil or Tylenol for pain. He uses a walker at home. He denies any loss of bowel or bladder. No numbness or saddle paresthesias. Denies any chest pain or shortness of breath. No fevers or recent illnesses. Patient did have bowel surgery about 1 year ago and has an ostomy bag. - Related Data Allergies/Adverse Reactions: No Known Allergies Allergy (Verified 12/14/19 15:43) Past Medical History - General Information source: Patient - Social History Smoking Status: Unknown if Ever Smoked Family History: None, Reviewed & Not Pertinent - Immunizations Hx Diphtheria, Pertussis, Tetanus Vaccination: No - greater than 5 years Hx Pneumococcal Vaccination: 06/18/10 Review of Systems - Review of Systems Notes: CONSTITUTIONAL: No fever SKIN: No rash. HENT: No congestion, ear pain, or sore throat. CARDIOVASCULAR: No chest pain or edema. RESPIRATORY: No cough, shortness of breath, congestion, or wheezing. GASTROINTESTINAL: No abdominal pain, nausea, vomiting, bloody stools or diarrhea. GENITOURINARY: No dysuria. No saddle paresthesias. MUSCULOSKELETAL: Low back pain and bilateral leg pain. NEUROLOGIC: No seizures. No headache, focal weakness or sensory changes. HEMATOLOGIC: No unusual bruising or bleeding. PSYCHIATRIC: No depression or anxiety. Physical Exam - Vital signs Vitals: Temp Pulse Resp BP Pulse Ox 98.0 F 90 18 132/69 H 100 08/21/20 14:48 08/21/20 14:48 08/21/20 14:48 08/21/20 14:48 08/21/20 14:48 - General Notes: VITAL SIGNS: Within normal limits. GENERAL: No acute distress, non-toxic appearance. HEAD: Normal with no signs of head trauma. EYES: Conjunctiva normal, no discharge. NECK: Normal range of motion, no tenderness, supple, no lymphadenopathy, No adenopathy, no JVD. CHEST: Clear breath sounds bilaterally. No wheezes, rales, or rhonchi. CARDIAC: Regular rate and rhythm. S1 and S2, without murmurs, gallops, or rubs. VASCULAR: No Edema. ABDOMEN: Normal and soft with no tenderness. Ostomy present. GENITOURINARY: Normal, No tenderness MUSCULOSKELETAL: Discomfort to palpation of lumbar midline spine. Range of motion of lower extremities intact but limited due to pain. NEUROLOGICAL: Alert and oriented x 3. No focal sensory or strength deficits. Speech normal. Follows commands appropriately. PSYCHIATRIC: Normal Affect, judgement and mood. SKIN: Normal appearance with no rashes or lesions. Course - Re-evaluation Re-evalutation: 08/22/20 02:16 Patient has a UTI. I will send the urine for culture and treat with Rocephin. Patient CT scan shows extensive osseous metastasis. His alkaline phosphatase is also very elevated which correlates with bone cancer. I discussed with Dr. Dallas calixto from oncology who recommended that patient be admitted into the hospital so he could see him tomorrow morning and begin the necessary work-up. Patient states his pain is better after morphine. I discussed all results with the patient. He verbalized understanding of the plan. 08/22/20 02:17 - Vital Signs Vital signs: Temp Pulse Resp BP Pulse Ox 97.8 F 86 18 155/67 H 99 08/22/20 00:58 08/22/20 00:58 08/22/20 00:58 08/22/20 00:58 08/22/20 00:58 - Laboratory Result Diagrams: 08/21/20 16:00 08/21/20 16:00 Laboratory results interpreted by me: 08/21/20 08/21/20 08/21/20 16:00 16:00 16:00 RBC 3.74 L Hgb 11.8 L Hct 34.9 L RDW 14.9 H Sodium 136.3 L Alkaline Phosphatase 2965 H Prostate Specific Ag Urine Blood SMALL H Ur Leukocyte Esterase SMALL H 08/21/20 16:00 RBC Hgb Hct RDW Sodium Alkaline Phosphatase Prostate Specific Ag 992.000 H Urine Blood Ur Leukocyte Esterase - Diagnostic Test Radiology reviewed: Image reviewed, Reports reviewed Discharge - Discharge Clinical Impression: Osseous metastasis Back pain Qualifiers: Back pain location: low back pain Chronicity: unspecified Back pain laterality: midline Sciatica presence: without sciatica Qualified Code(s): M54.5 - Low back pain Urinary tract infection Qualifiers: Urinary tract infection type: site unspecified Hematuria presence: without hematuria Qualified Code(s): N39.0 - Urinary tract infection, site not specified Condition: Stable Disposition: ADMITTED INPATIENT Admitting Provider: Liana Unit Admitted: Medical Floor Referrals: JUAREZ AVENDAÑO PA-C [Primary Care Provider] - Follow up as needed
[2020-08-21] MEDS ORDERED: MORPHINE SULFATE 10 MG/ML INJ IV ONE (18:27)
--- NOTE | 2020-08-21 19:55 | RADIOLOGY REPORT (SQ) ---
EXAM DESCRIPTION: CT ABD/PELVIS WITH IV ONLY IMAGES COMPLETED DATE/TIME: 08/21/2020 7:25 pm REASON FOR STUDY: abnormal xray spine, eval for lesions, high alk ph COMPARISON: None. TECHNIQUE: CT scan of the abdomen and pelvis performed using helical scanning technique with dynamic intravenous contrast injection. No oral contrast. Images reviewed with lung, soft tissue, and bone windows. Reconstructed coronal and sagittal MPR images reviewed. Delayed images for evaluation of the urinary system also acquired. All images stored on PACS. All CT scanners at this facility use dose modulation, iterative reconstruction, and/or weight based d osing when appropriate to reduce radiation dose to as low as reasonably achievable (ALARA). [facility]: Dose Right [facility]: CareDose [facility]: Dose Right [facility]: Teradose 4D [facility]: [employer] CONTRAST TYPE AND DOSE: contrast/concentration: Isovue 350.00 mmol/ml; Total Contrast Delivered: 61. 0 ml; Total Saline Delivered: 66.0 ml RENAL FUNCTION: BUN 11 creatinine 0.7 RADIATION DOSE: . LIMITATIONS: None. FINDINGS: LOWER CHEST: See separate report of the CT of the chest. LIVER: There are some small hepatic cysts. No masses. SPLEEN: Normal size. No focal lesions. PANCREAS: No masses. No significant calcifications. No adjacent inflammation or peripancreatic fluid collections. Pancreatic duct not dilated. GALLBLADDER: No identified stones by CT criteria. No inflammatory changes to suggest cholecystitis. ADRENAL GLANDS: No significant masses or asymmetry. RIGHT KIDNEY AND URETER: No solid masses. No significant calcifications. No hydronephrosis or hyd roureter. LEFT KIDNEY AND URETER: No solid masses. No significant calcifications. No hydronephrosis or hydr oureter. AORTA AND VESSELS: No aneurysm. No dissection. Renal arteries, SMA, celiac without stenosis. RETROPERITONEUM: No retroperitoneal adenopathy, hemorrhage or masses. BOWEL AND PERITONEAL CAVITY: Left lower quadrant ostomy. Stool in the right colon. No obvious bowel mass. APPENDIX: Normal. PELVIS: No mass. No free fluid. Normal bladder. ABDOMINAL WALL: Left lower quadrant ostomy. BONES: Heterogeneous mineralization of the bones with multiple sclerotic lesions. OTHER: No other significant finding. IMPRESSION: Extensive osseous metastases. Partial colectomy. No other significant finding in the a bdomen or pelvis. TECHNICAL DOCUMENTATION: JOB ID: [id number] Quality ID # [id number]: Final reports with documentation of one or more dose reduction techniques (e.g., Au tomated exposure control, adjustment of the mA and/or kV according to patient size, use of iterative reconstruction technique) 2010 [employer]- All Rights Reserved Reading location - IP/workstation name: [email or web address]
--- NOTE | 2020-08-21 19:58 | RADIOLOGY REPORT (SQ) ---
EXAM DESCRIPTION: CT CHEST WITH IMAGES COMPLETED DATE/TIME: 08/21/2020 7:25 pm REASON FOR STUDY: abnormal xray spine, evaluate for lesions COMPARISON: None. TECHNIQUE: CT scan of the chest performed using helical scanning technique with dynamic intravenous contrast injection. Images reviewed with lung, soft tissue and bone windows. Reconstructed coronal and sagittal MPR and MIP images reviewed. All images stored on PACS. All CT scanners at this facility use dose modulation, iterative reconstruction, and/or weight based d osing when appropriate to reduce radiation dose to as low as reasonably achievable (ALARA). [facility]: Dose Right [facility]: CareDose [facility]: Dose Right [facility]: Teradose 4D [facility]: [employer] CONTRAST TYPE AND DOSE: 61 mL Omnipaque 350- low osmolar. RENAL FUNCTION: BUN 11 creatinine 0.7 RADIATION DOSE: CT Rad equipment meets quality standard of care and radiation dose reduction techniq ues were employed. CTDIvol: 10.3 - 16.0 mGy. DLP: 1685 mGy-cm. . LIMITATIONS: None. FINDINGS: LUNGS AND PLEURA: No opacities, nodules, masses. No pneumothorax. No effusions. HILAR AND MEDIASTINAL STRUCTURES: No identified masses or abnormal nodes. HEART AND VASCULAR STRUCTURES: No aneurysm or dissection. No central pulmonary emboli. No pericardi al effusion. HARDWARE: None in the chest. UPPER ABDOMEN: See separate report of the CT of the abdomen. THYROID AND OTHER SOFT TISSUES: No masses. No adenopathy. BONES: Osseous metastases. OTHER: No other significant finding. IMPRESSION: Osseous metastases. No acute findings within the chest. TECHNICAL DOCUMENTATION: JOB ID: [id number] Quality ID # [id number]: Final reports with documentation of one or more dose reduction techniques (e.g., Au tomated exposure control, adjustment of the mA and/or kV according to patient size, use of iterative reconstruction technique) 2010 [email or web address] All Rights Reserved Reading location - IP/workstation name: [email or web address]
[2020-08-21] MEDS ORDERED: CEFTRIAXONE 1 GM/D5W RTU 1 GM/50 ML RTUPB IV ONE (20:37)
[2020-08-21] MEDS ORDERED: ONDANSETRON HCL INJ/PF 4 MG/2 ML SDV IV PRN (22:01)
--- NOTE | 2020-08-21 22:19 | PDOC H&P ---
History of Present Illness Admission Date/PCP: JUAREZ AVENDAÑO PA-C Patient complains of: low back pain History of Present Illness: JORDYN PADRON is a 70 year old male with a history of hypothyroidism now presents with progressively worsening low back pain radiating to his lower extremities. Patient reports that pain started about a year ago and has been ge tting worse through time. For the past 1 week the pain has been intolerable and he describes the pain as aching, 8-10/10 in intensity, radiating to lower extremities, aggravated by movement. He has been taking Advil and Tylenol for the pain but has not been helpful. Over the past 1 week, he states that he has not been able to walk due to the intensity of the pain. He had difficulty of urination in the past but he reports that he ED improved after he was given finasteride by his doctor. He denies cough, weight loss, constipation, diarrhea, melena, hematemesis or hematochezia. He quit smoking more than 5 years ago after smoking half a pack a day for about 15 years. He denies chest pain, shortness of breath, palpitation, dizziness, any skin rash. He is a history of abdominal surgery with colostomy the past year but he does not know the exact reason why he had surgery. Social History Information Source: Patient Lives with: Family Smoking Status: Former Smoker Frequency of Alcohol Use: None Hx Recreational Drug Use: No Drugs: None - Advance Directive Resuscitation Status: Full Code Family History Family History: None, Reviewed & Not Pertinent Parental Family History Reviewed: Yes Children Family History Reviewed: Yes Sibling(s) Family History Reviewed.: Yes Medication/Allergy Home Medications: Calcium Carbonate/Vitamin D3 [Caltrate 600-Vit D3 400 Tablet] 1 tab PO BID tablet 12/31/19 Cephalexin Monohydrate [Keflex 500 mg Capsule] 500 mg PO TID 7 Days #21 capsule 12/31/19 Finasteride [Proscar 5 mg Tablet] 5 mg PO QHS 30 Days #30 tablet 12/31/19 Levothyroxine Sodium [Synthroid 0.025 mg Tablet] 0.025 mg PO Q6AM 30 Days #30 tablet 12/31/19 Allergies/Adverse Reactions: No Known Allergies Allergy (Verified 12/14/19 15:43) Review of Systems Constitutional: ABSENT: chills, fever(s), headache(s), weight gain, weight loss Eyes: ABSENT: visual disturbances Ears: ABSENT: hearing changes Nose, Mouth, and Throat: ABSENT: headache(s), mouth pain, sore throat Cardiovascular: ABSENT: chest pain, dyspnea on exertion, edema, orthropnea, pa lpitations Respiratory: ABSENT: cough, hemoptysis Gastrointestinal: ABSENT: abdominal pain, constipation, diarrhea, hematemesis, hematochezia, nausea, vomiting Genitourinary: PRESENT: difficulty urinating. ABSENT: dysuria, hematuria Musculoskeletal: PRESENT: as per HPI, back pain Integumentary: ABSENT: rash, wounds Neurological: ABSENT: abnormal gait, abnormal speech, confusion, dizziness, focal weakness, syncope Psychiatric: ABSENT: anxiety, depression, homidical ideation, suicidal ideation Endocrine: ABSENT: cold intolerance, heat intolerance, polydipsia, polyuria Hematologic/Lymphatic: ABSENT: easy bleeding, easy bruising Physical Exam Vital Signs: Temp Pulse Resp BP Pulse Ox 98.0 F 90 18 163/74 H 98 08/21/20 14:48 08/21/20 14:48 08/21/20 14:48 08/21/20 20:28 08/21/20 20:28 Intake & Output 08/20/20 08/21/20 08/22/20 06:59 06:59 06:59 Weight 66.6 kg Additional comments: GENERAL APPEARANCE: Alert and oriented x3, in no acute distress HEENT: Normocephalic and atraumatic. No scleral icterus. Moist oral mucosa NECK: Supple. No lymphadenopathy or tenderness. No carotid bruit. No JVD CHEST: Symmetric. Nontender to palpation. LUNGS: Clear with good air entry bilaterally. No wheezing or crackles HEART: Regular rate and rhythm with normal S1 and S2. No murmurs, gallops, or rubs. ABDOMEN: Has empty colostomy bag in the left lower quadrant. Colostomy site is clean with no sign of bleeding. Soft, active bowel sounds, no direct or rebound tenderness. No organomegaly detected. No CVA tenderness EXTREMITIES: No cyanosis, clubbing, or edema. MUSCULOSKELETAL: No deformity, atrophy or swelling noted PSYCHIATRIC: Recent and remote memory is intact. Appropriate mood and affect. SKIN: Warm, dry, and well perfused. No lesions or rashes are noted. NEUROLOGIC: No focal sensory or motor deficits are noted. Results Laboratory Results: 08/21/20 16:00 08/21/20 16:00 08/21/20 08/21/20 08/21/20 16:00 16:00 16:00 WBC 7.1 RBC 3.74 L Hgb 11.8 L Hct 34.9 L MCV 93 MCH 31.7 MCHC 34.0 RDW 14.9 H Plt Count 176 Seg Neutrophils % 59.8 Sodium 136.3 L Potassium 3.8 Chloride 99 Carbon Dioxide 28 Anion Gap 9 BUN 11 Creatinine 0.70 Est GFR ( Amer) > 60 Glucose 97 Calcium 9.4 Total Bilirubin 0.8 AST 50 Alkaline Phosphatase 2965 H Total Protein 7.7 Albumin 4.1 Urine Color YELLOW Urine Appearance SLIGHTLY-CLOUDY Urine pH 6.0 Ur Specific [place] 1.010 Urine Protein NEGATIVE Urine Glucose (UA) NEGATIVE Urine Ketones NEGATIVE Urine Blood SMALL H Urine Nitrite NEGATIVE Ur Leukocyte Esterase SMALL H Urine WBC (Auto) 15 Urine RBC (Auto) 0 Impressions: Lumbar Spine X-Ray 08/21/20 15:38 IMPRESSION: Sclerotic appearance of the osseous structures - does the patient have a history of malignancy? - without a superimposed acute fracture or ma lalignment of the lumbar spine. Abdomen/Pelvis CT 08/21/20 18:04 IMPRESSION: Extensive osseous metastases. Partial colectomy. No other significant finding in the abdomen or pelvis. Chest CT 08/21/20 18:04 IMPRESSION: Osseous metastases. No acute findings within the chest. Assessment and Plan - Diagnosis (1) Osseous metastasis Is this a current diagnosis for this admission?: Yes Plan: Patient presents with back pain Alk phosphatase was elevated [place] 2965 CT abdomen and pelvis were done and showed multiple extensive osseous metastatic lesions but no primary was identified Kidney function is normal and no significant anemia to consider multiple myeloma Will manage pain with morphine Ordered PSA Oncology consult placed (2) Back pain Qualifiers: Back pain location: low back pain Chronicity: unspecified Back pain laterality: midline Sciatica presence: without sciatica Qualified Code(s): M54.5 - Low back pain Is this a current diagnosis for this admission?: Yes Plan: Patient presents with severe back pain Likely due to metastatic bone lesions from unknown primary Work-up started as stated above Control pain with morphine 2 mg IV every 4 hourly as needed Consider PT/OT consult (3) Urinary tract infection Qualifiers: Urinary tract infection type: site unspecified Hematuria presence: without hematuria Qualified Code(s): N39.0 - Urinary tract infection, site not specified Is this a current diagnosis for this admission?: Yes Plan: Patient reports dysuria and increased frequency of urination UA was significant for positive leukocyte esterase and 15 WBC per high-power field Patient was given ceftriaxone at the ED Started him on ciprofloxacin 500 mg p.o. twice daily Follow-up with urine culture - Time Time Spent with patient: 35 or more minutes Total Critical Time (Minutes): 40 Medications reviewed and adjusted accordingly: Yes Anticipated Discharge Disposition: Home, Self Care Anticipated Discharge Timeframe: within 48 hours - Inpatient Certification Based on my medical assessment, after consideration of the patient's comorbidities, presenting symptoms, or acuity I expect that the services needed warrant INPATIENT care.: Yes I certify that my determination is in accordance with my understanding of Medicare's requirements for reasonable and necessary INPATIENT services [42 CFR 412.3e].: Yes Medical Necessity: Need Close Monitoring Due to Risk of Patient Decompensation, Need for Pain Control Post Hospital Care: D/C or Transfer Summary
[2020-08-21] MEDS: CIPROFLOXACIN HCL 500 MG TABLET PO SCH (22:58)
[2020-08-21] MEDS: FAMOTIDINE 20 MG TABLET PO SCH (22:58)
[2020-08-22] MEDS: MORPHINE SULFATE 10 MG/ML INJ IV PRN (01:20)
[2020-08-22] MEDS: LEVOTHYROXINE SODIUM 0.025 MG TABLET PO SCH (05:33)
[2020-08-22] MEDS: ENOXAPARIN SODIUM INJ 40 MG/0.4 ML DISP.SYRIN SUBCUT SCH (10:51)
[2020-08-22] MEDS: CIPROFLOXACIN HCL 500 MG TABLET PO SCH ×2 (10:51→21:29)
[2020-08-22] MEDS: FAMOTIDINE 20 MG TABLET PO SCH ×2 (10:51→21:29)
--- NOTE | 2020-08-22 11:34 | PDOC CONSULTATION ---
Consultation Consult Date: 08/22/20 Attending physician:: CINDY RASHID Provider Consulted: BRIAN BAHENA Consult reason:: Multiple bone metastasis, severe pain History of Present Illness Admission Date/PCP: 08/21/20 23:16 JUAREZ AVENDAÑO PA-C Patient complains of: Severe back pain, inability to walk History of Present Illness: JORDYN PADRON is a 70 year old male now with a 1 year history of worsening back pain. Over the last 2 weeks it is worsened to a point where it was very severe and he could not walk, therefore he presented to the ER. Here he had CT of the chest abdomen pelvis along with x-rays done, x-rays initially indicated concern of bone metastasis, so CTs were done and there is multiple osseous metastasis noted. But no other findings. He did have a PSA drawn which was 992. In severe pain this morning, and has some numbness in the legs. Interestingly, he had been seeing a urologist by the name of Dr. Pascual. He is with [facility]. But he does not remember having anything done to his prostate. We will plan to try and get a hold of them. Past Medical History Medical History: None Psychiatric Medical History: Denies: Depression Past Surgical History Past Surgical History: Reports: None Social History Information Source: Patient Lives with: Family Smoking Status: Former Smoker Electronic Cigarette use?: No Frequency of Alcohol Use: None Hx Recreational Drug Use: No Drugs: None Hx Prescription Drug Abuse: No - Advance Directive Resuscitation Status: Full Code Family History Family History: None, Reviewed & Not Pertinent Parental Family History Reviewed: Yes Children Family History Reviewed: Yes Sibling(s) Family History Reviewed.: Yes Medication/Allergy Home Medications: Finasteride [Proscar 5 mg Tablet] 5 mg PO QHS 30 Days #30 tablet 12/31/19 Ferrous Sulfate [Feosol 325 mg Tablet] 325 mg PO DAILY 08/22/20 Levothyroxine Sodium [Synthroid 0.025 mg Tablet] 0.025 mg PO QAM 08/22/20 Magnesium Oxide [Mag-Ox 400 mg Tablet] 400 mg PO DAILY 08/22/20 Mirtazapine [Remeron 15 mg Tablet] 7.5 mg PO QHS 08/22/20 Allergies/Adverse Reactions: No Known Allergies Allergy (Verified 12/14/19 15:43) Review of Systems Constitutional: ABSENT: chills, fever(s), headache(s), weight gain, weight loss Eyes: ABSENT: visual disturbances Ears: ABSENT: hearing changes Cardiovascular: ABSENT: chest pain, dyspnea on exertion, edema, orthropnea, palpitations Respiratory: ABSENT: cough, hemoptysis Gastrointestinal: ABSENT: abdominal pain, constipation, diarrhea, hematemesis, hematochezia, nausea, vomiting Genitourinary: ABSENT: dysuria, hematuria Musculoskeletal: ABSENT: joint swelling Integumentary: ABSENT: rash, wounds Neurological: ABSENT: abnormal gait, abnormal speech, confusion, dizziness, focal weakness, syncope Psychiatric: ABSENT: anxiety, depression, homidical ideation, suicidal ideation Endocrine: ABSENT: cold intolerance, heat intolerance, polydipsia, polyuria Hematologic/Lymphatic: ABSENT: easy bleeding, easy bruising Physical Exam Vital Signs: Temp Pulse Resp BP Pulse Ox 98.2 F 88 17 115/61 98 08/22/20 08:35 08/22/20 08:35 08/22/20 08:35 08/22/20 08:35 08/22/20 08:35 Intake & Output 08/21/20 08/22/20 08/23/20 06:59 06:59 06:59 Intake Total 550 Output Total 1000 Balance -450 Weight 66.4 kg General appearance: PRESENT: no acute distress, well-developed, well-nourished Head exam: PRESENT: atraumatic, normocephalic Eye exam: PRESENT: conjunctiva pink, EOMI, PERRLA. ABSENT: scleral icterus Ear exam: PRESENT: normal external ear exam Mouth exam: PRESENT: moist, tongue midline Neck exam: ABSENT: carotid bruit, JVD, lymphadenopathy, thyromegaly Respiratory exam: PRESENT: clear to auscultation aldair. ABSENT: rales, rhonchi, wheezes Cardiovascular exam: PRESENT: RRR. ABSENT: diastolic murmur, rubs, systolic murmur Pulses: PRESENT: normal dorsalis pedis pul Vascular exam: PRESENT: normal capillary refill GI/Abdominal exam: PRESENT: normal bowel sounds, soft. ABSENT: distended, guar ding, mass, organolmegaly, rebound, tenderness Rectal exam: PRESENT: deferred Extremities exam: PRESENT: full ROM. ABSENT: calf tenderness, clubbing, pedal edema Neurological exam: PRESENT: alert, awake, oriented to person, oriented to place, oriented to time, oriented to situation, CN II-XII grossly intact. ABSENT: motor sensory deficit Psychiatric exam: PRESENT: appropriate affect, normal mood. ABSENT: homicidal ideation, suicidal ideation Skin exam: PRESENT: dry, intact, warm. ABSENT: cyanosis, rash Results Laboratory Results: 08/21/20 16:00 08/21/20 16:00 08/21/20 08/21/20 08/21/20 16:00 16:00 16:00 WBC 7.1 RBC 3.74 L Hgb 11.8 L Hct 34.9 L MCV 93 MCH 31.7 MCHC 34.0 RDW 14.9 H Plt Count 176 Seg Neutrophils % 59.8 Sodium 136.3 L Potassium 3.8 Chloride 99 Carbon Dioxide 28 Anion Gap 9 BUN 11 Creatinine 0.70 Est GFR ( Amer) > 60 Glucose 97 Calcium 9.4 Total Bilirubin 0.8 AST 50 Alkaline Phosphatase 2965 H Total Protein 7.7 Albumin 4.1 Prostate Specific Ag Urine Color YELLOW Urine Appearance SLIGHTLY-CLOUDY Urine pH 6.0 Ur Specific Kim 1.010 Urine Protein NEGATIVE Urine Glucose (UA) NEGATIVE Urine Ketones NEGATIVE Urine Blood SMALL H Urine Nitrite NEGATIVE Ur Leukocyte Esterase SMALL H Urine WBC (Auto) 15 Urine RBC (Auto) 0 08/21/20 16:00 WBC RBC Hgb Hct MCV MCH MCHC RDW Plt Count Seg Neutrophils % Sodium Potassium Chloride Carbon Dioxide Anion Gap BUN Creatinine Est GFR ( Amer) Glucose Calcium Total Bilirubin AST Alkaline Phosphatase Total Protein Albumin Prostate Specific Ag 992.000 H Urine Color Urine Appearance Urine pH Ur Specific Kim Urine Protein Urine Glucose (UA) Urine Ketones Urine Blood Urine Nitrite Ur Leukocyte Esterase Urine WBC (Auto) Urine RBC (Auto) Impressions: Lumbar Spine X-Ray 08/21/20 15:38 IMPRESSION: Sclerotic appearance of the osseous structures - does the patient have a history of malignancy? - without a superimposed acute fracture or malalignment of the lumbar spine. Abdomen/Pelvis CT 08/21/20 18:04 IMPRESSION: Extensive osseous metastases. Partial colectomy. No other significant finding in the abdomen or pelvis. Chest CT 08/21/20 18:04 IMPRESSION: Osseous metastases. No acute findings within the chest. Status: Image reviewed by me Assessment & Plan - Diagnosis (1) Osseous metastasis Is this a current diagnosis for this admission?: Yes Plan: Likely secondary to prostate cancer, ultimately he will need a prostate biopsy but we will do this as an outpatient. He has symptoms concerning for cord compression so I have ordered MRI of the thoracic and lumbar spine. I have also contacted radiation oncology who will be seeing them on Monday. I will start him on dexamethasone IV 10 mg now then 4 mg every 6 hours. (2) Prostate cancer Is this a current diagnosis for this admission?: Yes Plan: Likely prostate cancer with a PSA of 992, I will start him on Casodex today. Plan as above for radiation. (3) Pain, neoplasm-related Is this a current diagnosis for this admission?: Yes Plan: I will start him on fentanyl patch today, continue with IV morphine. - Time Time Spent: Greater than 70 Minutes - Inpatient Certification Based on my medical assessment, after consideration of the patient's comorbidities, presenting symptoms, or acuity I expect that the services needed warrant INPATIENT care.: Yes I certify that my determination is in accordance with my understanding of Medicare's requirements for reasonable and necessary INPATIENT services [42 CFR 412.3e].: Yes Medical Necessity: Need for Pain Control, Risk of Complication if Not Cared For in Hospital
[2020-08-22] MEDS ORDERED: DEXAMETHASONE SOD PHOS INJ 10 MG/1 ML VIAL IV ONE (12:00)
[2020-08-22] MEDS ORDERED: ZOLEDRONIC ACID 4 MG/100 ML RTU IV ONE (13:00)
[2020-08-22] MEDS: FENTANYL 12 MCG/HR PATCH.TD72 TD SCH (13:10)
[2020-08-22] MEDS: BICALUTAMIDE 50 MG TABLET PO SCH (14:50)
[2020-08-22] MEDS ORDERED: LORAZEPAM INJ 2 MG/1 ML VIAL IV PRN (16:15)
[2020-08-22] MEDS ORDERED: LORAZEPAM INJ 2 MG/1 ML VIAL ONE (16:22)
--- NOTE | 2020-08-22 18:41 | PDOC PROGRESS REPORT ---
Subjective Date:: 08/22/20 Subjective:: c/o back pain, leg weakness and bilateral lower extremities. He also has some s addle numbness. Numbness in his feet. He has not had any fecal incontinence but he also has a colectomy and a blind pouch so does not pass feces to his anus. Denies any history of prostate cancer or any type of malignancy. Patient does not know why he had a partial colectomy previously. Endorses nocturia, polyuria and difficulty voiding for which he takes finasteride. Reason For Visit: LOW BACK PAIN,BONE METASTASIS WITH UNKNOWN PRIMARY Physical Exam Vital Signs: Temp Pulse Resp BP Pulse Ox 98.2 F 88 17 115/61 98 08/22/20 08:35 08/22/20 08:35 08/22/20 08:35 08/22/20 08:35 08/22/20 08:35 Intake & Output 08/21/20 08/22/20 08/23/20 06:59 06:59 06:59 Intake Total 550 1280 Output Total 1000 900 Balance -450 380 Weight 66.4 kg General appearance: PRESENT: no acute distress, cooperative Neck exam: ABSENT: JVD Respiratory exam: PRESENT: clear to auscultation aldair, symmetrical, unlabored. ABSENT: tachypnea, wheezes Cardiovascular exam: PRESENT: RRR, +S1, +S2. ABSENT: tachycardia GI/Abdominal exam: PRESENT: soft. ABSENT: rebound, rigid, tenderness Rectal exam: PRESENT: normal rectal tone, prostate enlargement. ABSENT: decreased rectal tone, prostate tenderness Extremities exam: ABSENT: pedal edema Neurological exam: PRESENT: alert, awake, oriented to person, oriented to place, oriented to situation Psychiatric exam: ABSENT: agitated, anxious Skin exam: ABSENT: jaundice Results Laboratory Results: 08/21/20 16:00 08/21/20 16:00 08/21/20 16:00 Prostate Specific Ag 992.000 H Impressions: Lumbar Spine X-Ray 08/21/20 15:38 IMPRESSION: Sclerotic appearance of the osseous structures - does the patient have a history of malignancy? - without a superimposed acute fracture or malalignment of the lumbar spine. Abdomen/Pelvis CT 08/21/20 18:04 IMPRESSION: Extensive osseous metastases. Partial colectomy. No other significant finding in the abdomen or pelvis. Chest CT 08/21/20 18:04 IMPRESSION: Osseous metastases. No acute findings within the chest. Assessment and Plan - Diagnosis (1) Osseous metastasis Is this a current diagnosis for this admission?: Yes (2) Prostate cancer Is this a current diagnosis for this admission?: Yes (3) Urinary tract infection Qualifiers: Urinary tract infection type: site unspecified Hematuria presence: without hematuria Qualified Code(s): N39.0 - Urinary tract infection, site not specified Is this a current diagnosis for this admission?: Yes (4) Lumbosacral radiculopathy Is this a current diagnosis for this admission?: Yes (5) Back pain Qualifiers: Back pain location: low back pain Chronicity: unspecified Back pain laterality: midline Sciatica presence: without sciatica Qualified Code(s): M54.5 - Low back pain Is this a current diagnosis for this admission?: Yes (6) Bilateral leg weakness Is this a current diagnosis for this admission?: Yes - Plan Summary Summary: Patient likely has prostate cancer given his PSA over 900. On rectal exam, his rectal tone is normal but his leg weakness, radiculopathy and numbness with concern for cord compression. Patient was seen by oncologist who has started patient on bucalitamide and dexamethasone MRI of the lumbar spine was ordered but patient has refused it today stating that he will do tomorrow. He complains that he feels very anxious and cla ustrophobic even despite receiving 2 mg of Ativan IV prior to the procedure. I have conversed with him and emphasized on the emergency of making this diagnosis and risk of delay and even offered more anxiolytic medication but he continues to decline stating that he is not mentally prepared to do it now and that he will do it tomorrow. We will try again tomorrow morning. PT/OT Pain control Continue ceftriaxone for UTI - Time Time Spent with patient: 25-34 minutes Anticipated Discharge Disposition: Home, Self Care Anticipated Discharge Timeframe: within 36 hours
[2020-08-22] MEDS: DEXAMETHASONE SOD PHOSPHATE INJ 4 MG/1 ML VIAL IV SCH ×2 (18:42→23:29)
[2020-08-22] MEDS: MIRTAZAPINE 15 MG TABLET PO SCH (21:28)
[2020-08-22] MEDS: FINASTERIDE 5 MG TABLET PO SCH (21:29)
[2020-08-22] MEDS: ACETAMINOPHEN 325 MG TABLET PO PRN (21:32)
[2020-08-23] MEDS: LEVOTHYROXINE SODIUM 0.025 MG TABLET PO SCH (05:44)
[2020-08-23] MEDS: DEXAMETHASONE SOD PHOSPHATE INJ 4 MG/1 ML VIAL IV SCH ×4 (05:44→23:35)
[2020-08-23] MEDS ORDERED: INFLUENZA QUAD (6MOS+) 2020-21 VAC 0.5 ML SYR IM ONE (08:00)
[2020-08-23] MEDS: ENOXAPARIN SODIUM INJ 40 MG/0.4 ML DISP.SYRIN SUBCUT SCH (11:25)
[2020-08-23] MEDS: BICALUTAMIDE 50 MG TABLET PO SCH (11:26)
[2020-08-23] MEDS: MAGNESIUM OXIDE 400 MG TABLET PO SCH (11:26)
[2020-08-23] MEDS: FAMOTIDINE 20 MG TABLET PO SCH ×2 (11:26→21:07)
[2020-08-23] MEDS: FERROUS SULFATE 325 MG TABLET PO SCH (11:26)
--- NOTE | 2020-08-23 11:55 | PDOC PROGRESS REPORT ---
Subjective Date:: 08/23/20 Subjective:: Patient states that his back pain is actually improved. He remains reluctant to doing an MRI of his back. I have explained to him twice today as well as yesterday evening elaborately about the reason and the risks of paralysis and cord compression if he declines procedure but he continues to decline. I have also offered to give any more anxiolytics to help but he is still reluctant and declines procedure. I discussed the physical therapist who noted that he was not able to get far with physical therapy yesterday as he only got up and stayed up for about 30 seconds before falling back on several attempts. Reason For Visit: LOW BACK PAIN,BONE METASTASIS WITH UNKNOWN PRIMARY Physical Exam Vital Signs: Temp Pulse Resp BP Pulse Ox 97.8 F 91 14 117/56 L 98 08/23/20 07:14 08/23/20 07:14 08/23/20 07:14 08/23/20 07:14 08/23/20 07:14 Intake & Output 08/22/20 08/23/20 08/24/20 06:59 06:59 06:59 Intake Total 550 1620 Output Total 1000 2600 Balance -450 -980 Weight 66.4 kg 69.1 kg General appearance: PRESENT: no acute distress, cooperative, well-nourished, other - soft spoken Head exam: PRESENT: normocephalic Mouth exam: ABSENT: moist Neck exam: ABSENT: JVD Respiratory exam: PRESENT: symmetrical, unlabored. ABSENT: accessory muscle use, retraction, tachypnea Cardiovascular exam: PRESENT: RRR, +S1, +S2. ABSENT: tachycardia GI/Abdominal exam: PRESENT: soft, other - has ostomy present which I watched patient changing ostomy bag himself adequately. ABSENT: rebound, rigid, tenderness Neurological exam: PRESENT: alert, awake, oriented to person, oriented to place, oriented to time, oriented to situation - Showed understanding of his current situation and diagnoses and able to explain back adequately to me the consequences of foregoing MRI Results Laboratory Results: 08/21/20 16:00 08/21/20 16:00 08/21/20 16:00 Clean Catch Midstream Urine Culture - Final Escherichia Coli Klebsiella Pneumoniae Impressions: Lumbar Spine X-Ray 08/21/20 15:38 IMPRESSION: Sclerotic appearance of the osseous structures - does the patient have a history of malignancy? - without a superimposed acute fracture or m alalignment of the lumbar spine. Abdomen/Pelvis CT 08/21/20 18:04 IMPRESSION: Extensive osseous metastases. Partial colectomy. No other significant finding in the abdomen or pelvis. Chest CT 08/21/20 18:04 IMPRESSION: Osseous metastases. No acute findings within the chest. Assessment and Plan - Diagnosis (1) Prostate cancer metastatic to bone Is this a current diagnosis for this admission?: Yes Plan: PSA of 992 with osseous metastasis. Despite multiple conversations regarding importance of MRI to evaluate for cord compression and offering anxiolytics pre-MRI, patient has declined MRI due to anxiety/claustrophobia and other worries. On dexamethasone and bicalutamide Oncology is following and is planning for radiation therapy starting tomorrow (2) Pain, neoplasm-related Is this a current diagnosis for this admission?: Yes Plan: Fentanyl patch. Reports improvement in pain today. Still has as needed morphine. (3) Complicated UTI (urinary tract infection) Is this a current diagnosis for this admission?: Yes (4) Bilateral leg weakness Is this a current diagnosis for this admission?: Yes Plan: Suspected secondary to bone mets. As noted MRI was declined. He has significant ambulatory dysfunction and only able to get up with PT yesterday. Physical therapy will continue to see in-house to see if any improvement. SW consulted for Rehab. (5) Lumbosacral radiculopathy Is this a current diagnosis for this admission?: Yes Plan: Bilateral lower extremities. Likely secondary to osseous metastasis. (6) Urinary retention Is this a current diagnosis for this admission?: Yes Plan: Chronic. Follows a urologist. Continue finasteride. - Time Time Spent with patient: 35 or more minutes Anticipated Discharge Disposition: [facility] Facility Anticipated Discharge Timeframe: when bed available
[2020-08-23] MEDS: CEPHALEXIN 500 MG CAPSULE PO SCH ×3 (13:21→23:35)
[2020-08-23] MEDS: ACETAMINOPHEN 325 MG TABLET PO PRN (18:57)
[2020-08-23] MEDS: MIRTAZAPINE 15 MG TABLET PO SCH (21:07)
[2020-08-23] MEDS: FINASTERIDE 5 MG TABLET PO SCH (21:07)
[2020-08-24] MEDS: CEPHALEXIN 500 MG CAPSULE PO SCH ×4 (06:14→23:14)
[2020-08-24] MEDS: LEVOTHYROXINE SODIUM 0.025 MG TABLET PO SCH (06:14)
[2020-08-24] MEDS: DEXAMETHASONE SOD PHOSPHATE INJ 4 MG/1 ML VIAL IV SCH ×4 (06:15→23:13)
--- NOTE | 2020-08-24 08:05 | PDOC PROGRESS REPORT ---
Subjective Date:: 08/24/20 Subjective:: Pt refused MRI, is very claustrophobic, we could not convince him to do under sedation. But he is interested in pursuing xrt so he will be seen today. Started on casodex. Spoke w/ rad onc who notes pt can be treated w/out MRI. Reason For Visit: METASTASIS PROSTATE CANCER Physical Exam Vital Signs: Temp Pulse Resp BP Pulse Ox 98.0 F 75 18 122/66 99 08/23/20 23:48 08/23/20 23:48 08/23/20 23:48 08/23/20 23:48 08/23/20 23:48 Intake & Output 08/23/20 08/24/20 08/25/20 06:59 06:59 06:59 Intake Total 1620 Output Total 2600 1720 Balance -980 -1720 Weight 69.1 kg 69.1 kg General appearance: PRESENT: no acute distress, well-developed, well-nourished Head exam: PRESENT: atraumatic, normocephalic Eye exam: PRESENT: conjunctiva pink, EOMI, PERRLA. ABSENT: scleral icterus Ear exam: PRESENT: normal external ear exam Mouth exam: PRESENT: moist, tongue midline Neck exam: ABSENT: carotid bruit, JVD, lymphadenopathy, thyromegaly Respiratory exam: PRESENT: clear to auscultation aldair. ABSENT: rales, rhonchi, wheezes Cardiovascular exam: PRESENT: RRR. ABSENT: diastolic murmur, rubs, systolic murmur Pulses: PRESENT: normal dorsalis pedis pul Vascular exam: PRESENT: normal capillary refill GI/Abdominal exam: PRESENT: normal bowel sounds, soft. ABSENT: distended, g uarding, mass, organolmegaly, rebound, tenderness Rectal exam: PRESENT: deferred Extremities exam: PRESENT: full ROM. ABSENT: calf tenderness, clubbing, pedal edema Neurological exam: PRESENT: alert, awake, oriented to person, oriented to place, oriented to time, oriented to situation, CN II-XII grossly intact. ABSENT: mo tor sensory deficit Psychiatric exam: PRESENT: appropriate affect, normal mood. ABSENT: homicidal ideation, suicidal ideation Skin exam: PRESENT: dry, intact, warm. ABSENT: cyanosis, rash Results Laboratory Results: 08/21/20 16:00 08/21/20 16:00 08/21/20 16:00 Clean Catch Midstream Urine Culture - Final Escherichia Coli Klebsiella Pneumoniae Impressions: Lumbar Spine X-Ray 08/21/20 15:38 IMPRESSION: Sclerotic appearance of the osseous structures - does the patient have a history of malignancy? - without a superimposed acute fracture or malalignment of the lumbar spine. Abdomen/Pelvis CT 08/21/20 18:04 IMPRESSION: Extensive osseous metastases. Partial colectomy. No other significant finding in the abdomen or pelvis. Chest CT 08/21/20 18:04 IMPRESSION: Osseous metastases. No acute findings within the chest. Assessment & Plan - Diagnosis (1) Osseous metastasis Is this a current diagnosis for this admission?: Yes Plan: Bone mets related to prostate ca. Zometa and Casodex given. Will start further ADT as outpt most likely. XRT will see pt today. (2) Prostate cancer Is this a current diagnosis for this admission?: Yes Plan: Started rx and plan as above (3) Pain, neoplasm-related Is this a current diagnosis for this admission?: Yes Plan: Cont current regimen for now - Time Time Spent with patient: 35 or more minutes
[2020-08-24] MEDS: FERROUS SULFATE 325 MG TABLET PO SCH (10:12)
[2020-08-24] MEDS: FAMOTIDINE 20 MG TABLET PO SCH ×2 (10:12→21:35)
[2020-08-24] MEDS: MAGNESIUM OXIDE 400 MG TABLET PO SCH (10:13)
[2020-08-24] MEDS: BICALUTAMIDE 50 MG TABLET PO SCH (10:14)
--- NOTE | 2020-08-24 12:40 | PDOC PROGRESS REPORT ---
Subjective Date:: 08/24/20 Subjective:: Patient feels better today. He states that the pain is a lot better. Still has not been able to do much in terms of ambulation. Still refusing to have an MRI of his L-spine. Reason For Visit: METASTASIS PROSTATE CANCER Physical Exam Vital Signs: Temp Pulse Resp BP Pulse Ox 98.0 F 94 19 127/68 H 100 08/23/20 23:48 08/24/20 08:00 08/24/20 08:00 08/24/20 08:00 08/24/20 08:00 Intake & Output 08/23/20 08/24/20 08/25/20 06:59 06:59 06:59 Intake Total 1620 Output Total 2600 1720 Balance -980 -1720 Weight 69.1 kg 69.1 kg General appearance: PRESENT: no acute distress, cooperative Neck exam: ABSENT: JVD Respiratory exam: PRESENT: symmetrical, unlabored. ABSENT: accessory muscle use, tachypnea GI/Abdominal exam: PRESENT: soft, other - Ostomy present. ABSENT: rebound, rigid, tenderness Extremities exam: ABSENT: pedal edema Musculoskeletal exam: ABSENT: ambulatory Neurological exam: PRESENT: alert, awake, oriented to person, oriented to place, oriented to time, oriented to situation Psychiatric exam: ABSENT: agitated, anxious Focused psych exam: ABSENT: pressured speech Skin exam: ABSENT: jaundice Results Laboratory Results: 08/21/20 16:00 08/21/20 16:00 08/21/20 16:00 Clean Catch Midstream Urine Culture - Final Escherichia Coli Klebsiella Pneumoniae Impressions: Lumbar Spine X-Ray 08/21/20 15:38 IMPRESSION: Sclerotic appearance of the osseous structures - does the patient have a history of malignancy? - without a superimposed acute fracture or malalignment of the lumbar spine. Abdomen/Pelvis CT 08/21/20 18:04 IMPRESSION: Extensive osseous metastases. Partial colectomy. No other significant finding in the abdomen or pelvis. Chest CT 08/21/20 18:04 IMPRESSION: Osseous metastases. No acute findings within the chest. Assessment and Plan - Diagnosis (1) Prostate cancer metastatic to bone Is this a current diagnosis for this admission?: Yes Plan: PSA of 992 with osseous metastasis. Despite multiple conversations regarding importance of MRI to evaluate for cord compression and offering anxiolytics pre-MRI, patient has declined MRI due to anxiety/claustrophobia, lack of trust in medical claims specialist and other worries. On dexamethasone and bicalutamide Oncology is arranging for radiation oncology to see patient to initiate radiation therapy. (2) Pain, neoplasm-related Is this a current diagnosis for this admission?: Yes Plan: Significantly better. Fentanyl patch. Still has as needed morphine. (3) Complicated UTI (urinary tract infection) Is this a current diagnosis for this admission?: Yes Plan: Klebsiella and Ecoli UTI. c/W Keflex. Day 3 abx. (4) Bilateral leg weakness Is this a current diagnosis for this admission?: Yes Plan: Suspected secondary to bone mets. As noted MRI was declined. He has significant ambulatory dysfunction. This is the limiting factor to discharging patient. Physical therapy will continue to see in-house to see if any improvement. We will order wheelchair for patient as patient is unable to ambulate using a c ane or walker and is able to use a wheelchair to get himself around to perform ADLs. Discussed with patient's sister whom he lives with and there will be some barriers that may make it difficult for patient going home on home health. I have discussed with SW to coordinate with his sister to see if we can possibly work through some of these barriers [including transportation and wheelchair capabilitis] especially as it will be difficult getting patient into SNF now that he is planned for radiation therapy possibly for the next 10 days. (5) Lumbosacral radiculopathy Is this a current diagnosis for this admission?: Yes Plan: Bilateral lower extremities. Likely secondary to osseous metastasis. (6) Urinary retention Is this a current diagnosis for this admission?: Yes Plan: Chronic. Follows a urologist. Continue finasteride. - Time Time Spent with patient: 15-24 minutes Anticipated Discharge Disposition: SNF vs Anticipated Discharge Timeframe: when bed available
[2020-08-24] MEDS: ENOXAPARIN SODIUM INJ 40 MG/0.4 ML DISP.SYRIN SUBCUT SCH (13:04)
[2020-08-24] MEDS: FINASTERIDE 5 MG TABLET PO SCH (21:35)
[2020-08-24] MEDS: MIRTAZAPINE 15 MG TABLET PO SCH (21:35)
[2020-08-24] MEDS: ACETAMINOPHEN 325 MG TABLET PO PRN (23:13)
[2020-08-25] MEDS: CEPHALEXIN 500 MG CAPSULE PO SCH ×4 (05:07→23:48)
[2020-08-25] MEDS: LEVOTHYROXINE SODIUM 0.025 MG TABLET PO SCH ×2 (05:07→05:16)
[2020-08-25] MEDS: DEXAMETHASONE SOD PHOSPHATE INJ 4 MG/1 ML VIAL IV SCH ×4 (05:08→23:48)
--- NOTE | 2020-08-25 07:59 | PDOC PROGRESS REPORT ---
Subjective Date:: 08/25/20 Subjective:: Patient noted that when he tried to lay flat on the radiation bed, had a lot of pain. But did not get any pain medication before he went down. I discussed that with him that he must except getting IV morphine before he goes to radiation and that will help him get through the radiation. He agrees to this. Reason For Visit: METASTASIS PROSTATE CANCER Physical Exam Vital Signs: Temp Pulse Resp BP Pulse Ox 98.0 F 94 17 136/73 H 96 08/24/20 23:49 08/24/20 23:49 08/24/20 23:49 08/24/20 23:49 08/24/20 23:49 Intake & Output 08/24/20 08/25/20 08/26/20 06:59 06:59 06:59 Intake Total 1410 Output Total 1720 2650 Balance -1720 -1240 Weight 69.1 kg 69.1 kg General appearance: PRESENT: no acute distress, well-developed, well-nourished Head exam: PRESENT: atraumatic, normocephalic Eye exam: PRESENT: conjunctiva pink, EOMI, PERRLA. ABSENT: scleral icterus Ear exam: PRESENT: normal external ear exam Mouth exam: PRESENT: moist, tongue midline Neck exam: ABSENT: carotid bruit, JVD, lymphadenopathy, thyromegaly Respiratory exam: PRESENT: clear to auscultation aldair. ABSENT: rales, rhonchi, wheezes Cardiovascular exam: PRESENT: RRR. ABSENT: diastolic murmur, rubs, systolic murmur Pulses: PRESENT: normal dorsalis pedis pul Vascular exam: PRESENT: normal capillary refill GI/Abdominal exam: PRESENT: normal bowel sounds, soft. ABSENT: distended, guarding, mass, organolmegaly, rebound, tenderness Rectal exam: PRESENT: deferred Extremities exam: PRESENT: full ROM. ABSENT: calf tenderness, clubbing, pedal edema Neurological exam: PRESENT: alert, awake, oriented to person, oriented to place, oriented to time, oriented to situation, CN II-XII grossly intact. ABSENT: motor sensory deficit Psychiatric exam: PRESENT: appropriate affect, normal mood. ABSENT: homicidal ideation, suicidal ideation Skin exam: PRESENT: dry, intact, warm. ABSENT: cyanosis, rash Results Laboratory Results: 08/21/20 16:00 08/21/20 16:00 Impressions: Lumbar Spine X-Ray 08/21/20 15:38 IMPRESSION: Sclerotic appearance of the osseous structures - does the patient have a history of malignancy? - without a superimposed acute fracture or malalignment of the lumbar spine. Abdomen/Pelvis CT 08/21/20 18:04 IMPRESSION: Extensive osseous metastases. Partial colectomy. No other significant finding in the abdomen or pelvis. Chest CT 08/21/20 18:04 IMPRESSION: Osseous metastases. No acute findings within the chest. Assessment & Plan - Diagnosis (1) Osseous metastasis Is this a current diagnosis for this admission?: Yes Plan: Retry XRT today. Hopefully that will work for him. (2) Prostate cancer Is this a current diagnosis for this admission?: Yes Plan: Casodex continued, XRT today (3) Pain, neoplasm-related Is this a current diagnosis for this admission?: Yes Plan: Continue with current pain control but I have encouraged more use of morphine, increase fentanyl to 25 mcg. - Time Time Spent with patient: 35 or more minutes
[2020-08-25] MEDS: FERROUS SULFATE 325 MG TABLET PO SCH (10:17)
[2020-08-25] MEDS: FAMOTIDINE 20 MG TABLET PO SCH ×2 (10:17→21:48)
[2020-08-25] MEDS: MAGNESIUM OXIDE 400 MG TABLET PO SCH (10:17)
[2020-08-25] MEDS: FENTANYL 12 MCG/HR PATCH.TD72 TD SCH (10:17)
[2020-08-25] MEDS: ENOXAPARIN SODIUM INJ 40 MG/0.4 ML DISP.SYRIN SUBCUT SCH (10:19)
[2020-08-25] MEDS: BICALUTAMIDE 50 MG TABLET PO SCH (10:19)
[2020-08-25] MEDS ORDERED: MORPHINE SULFATE 10 MG/ML INJ IV PRN (10:30)
[2020-08-25] MEDS: MORPHINE SULFATE 10 MG/ML INJ IV PRN (11:33)
[2020-08-25] MEDS: FENTANYL 25 MCG/HR PATCH.TD72 TD SCH (11:49)
--- NOTE | 2020-08-25 13:22 | PDOC PROGRESS REPORT ---
Subjective Date:: 08/25/20 Subjective:: Patient seen in his bed waiting transport to radiation oncology. He has been en couraged to take his medication as prescribed. I will also place him on oral narcotic as this may be more palatable to him. He states that he is comfortable. Reason For Visit: METASTASIS PROSTATE CANCER Physical Exam Vital Signs: Temp Pulse Resp BP Pulse Ox 97.5 F 89 16 117/52 L 96 08/25/20 11:36 08/25/20 11:36 08/25/20 11:36 08/25/20 11:36 08/25/20 11:36 Intake & Output 08/24/20 08/25/20 08/26/20 06:59 06:59 06:59 Intake Total 1410 818 Output Total 1720 2650 400 Balance -1720 -1240 418 Weight 69.1 kg 69.1 kg General appearance: PRESENT: no acute distress Head exam: PRESENT: atraumatic, normocephalic Eye exam: PRESENT: conjunctiva pink, EOMI, PERRLA. ABSENT: scleral icterus Ear exam: PRESENT: normal external ear exam Mouth exam: PRESENT: moist, tongue midline Neck exam: ABSENT: carotid bruit, JVD, lymphadenopathy, thyromegaly Respiratory exam: PRESENT: clear to auscultation aldair. ABSENT: rales, rhonchi, wheezes Cardiovascular exam: PRESENT: RRR, +S1, +S2. ABSENT: diastolic murmur, rubs, systolic murmur Pulses: PRESENT: normal dorsalis pedis pul Vascular exam: PRESENT: normal capillary refill GI/Abdominal exam: PRESENT: normal bowel sounds, soft. ABSENT: distended, guarding, mass, organolmegaly, rebound, tenderness Rectal exam: PRESENT: deferred Extremities exam: PRESENT: full ROM. ABSENT: calf tenderness, clubbing, pedal edema Neurological exam: PRESENT: alert, awake, oriented to person, oriented to place, oriented to time, oriented to situation, CN II-XII grossly intact. ABSENT: motor sensory deficit Psychiatric exam: PRESENT: appropriate affect, normal mood. ABSENT: homicidal ideation, suicidal ideation Skin exam: PRESENT: dry, intact, warm. ABSENT: cyanosis, rash Results Laboratory Results: 08/21/20 16:00 08/21/20 16:00 Impressions: Lumbar Spine X-Ray 08/21/20 15:38 IMPRESSION: Sclerotic appearance of the osseous structures - does the patient have a history of malignancy? - without a superimposed acute fracture or malalignment of the lumbar spine. Abdomen/Pelvis CT 08/21/20 18:04 IMPRESSION: Extensive osseous metastases. Partial colectomy. No other significant finding in the abdomen or pelvis. Chest CT 08/21/20 18:04 IMPRESSION: Osseous metastases. No acute findings within the chest. Assessment and Plan - Diagnosis (1) Osseous metastasis Is this a current diagnosis for this admission?: Yes Plan: Patient presents with back pain Alk phosphatase was elevated [place] 2965 CT abdomen and pelvis were done and showed multiple extensive osseous metastatic lesions but no primary was identified Kidney function is normal and no significant anemia to consider multiple myeloma Will manage pain with morphine Ordered PSA Oncology consult placed 08/26 appreciate oncology input. Patient scheduled for radiation therapy today (2) Pain, neoplasm-related Is this a current diagnosis for this admission?: Yes Plan: Significantly better. Fentanyl patch. Still has as needed morphine. 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 Despite multiple conversations regarding importance of MRI to evaluate for cord compression and offering anxiolytics pre-MRI, patient has declined MRI due to anxiety/claustrophobia, lack of trust in medical sociologist and other worries. On dexamethasone and bicalutamide Oncology is arranging for radiation oncology to see patient to initiate radiation therapy. 08/25 further management as per oncology (4) Debility Is this a current diagnosis for this admission?: Yes (5) Complicated UTI (urinary tract infection) Is this a current diagnosis for this admission?: Yes Plan: Klebsiella and Ecoli UTI. c/W Keflex. Day 4 abx. (6) Lumbosacral radiculopathy Is this a current diagnosis for this admission?: Yes Plan: Bilateral lower extremities. Likely secondary to osseous metastasis. Continue with pain management - Time Time Spent with patient: 15-24 minutes Medications reviewed and adjusted accordingly: Yes Anticipated Discharge Disposition: Home with Home Health Anticipated Discharge Timeframe: within 72 hours
[2020-08-25] MEDS: OXYCODONE-ACETAMINOPHEN 5-325 MG TABLET PO PRN (21:46)
[2020-08-25] MEDS: FINASTERIDE 5 MG TABLET PO SCH (21:48)
[2020-08-25] MEDS: MIRTAZAPINE 15 MG TABLET PO SCH (21:49)
[2020-08-26] MEDS: LEVOTHYROXINE SODIUM 0.025 MG TABLET PO SCH (05:25)
[2020-08-26] MEDS: OXYCODONE-ACETAMINOPHEN 5-325 MG TABLET PO PRN (05:25)
[2020-08-26] MEDS: CEPHALEXIN 500 MG CAPSULE PO SCH ×3 (05:26→17:37)
[2020-08-26] MEDS: DEXAMETHASONE SOD PHOSPHATE INJ 4 MG/1 ML VIAL IV SCH ×3 (05:26→17:37)
--- NOTE | 2020-08-26 08:40 | PDOC PROGRESS REPORT ---
Subjective Date:: 08/26/20 Subjective:: Unfortunately, patient was unable again to lay flat for radiation even with pain medication. He did work with physical therapy yesterday and felt better after he worked with physical therapy. I discussed the possibility of rehab placement to get him stronger before we consider any further therapy. At this point, he does not want to pursue radiation. Reason For Visit: METASTASIS PROSTATE CANCER Physical Exam Vital Signs: Temp Pulse Resp BP Pulse Ox 97.4 F 93 16 121/65 97 08/26/20 07:53 08/26/20 07:53 08/26/20 07:53 08/26/20 07:53 08/26/20 07:53 Intake & Output 08/25/20 08/26/20 08/27/20 06:59 06:59 06:59 Intake Total 1410 2018 Output Total 2650 1400 Balance -1240 618 Weight 69.1 kg 69.1 kg General appearance: PRESENT: no acute distress, well-developed, well-nourished Head exam: PRESENT: atraumatic, normocephalic Eye exam: PRESENT: conjunctiva pink, EOMI, PERRLA. ABSENT: scleral icterus Ear exam: PRESENT: normal external ear exam Mouth exam: PRESENT: moist, tongue midline Neck exam: ABSENT: carotid bruit, JVD, lymphadenopathy, thyromegaly Respiratory exam: PRESENT: clear to auscultation aldair. ABSENT: rales, rhonchi, wheezes Cardiovascular exam: PRESENT: RRR. ABSENT: diastolic murmur, rubs, systolic murmur Pulses: PRESENT: normal dorsalis pedis pul Vascular exam: PRESENT: normal capillary refill GI/Abdominal exam: PRESENT: normal bowel sounds, soft. ABSENT: distended, guarding, mass, organolmegaly, rebound, tenderness Rectal exam: PRESENT: deferred Extremities exam: PRESENT: full ROM. ABSENT: calf tenderness, clubbing, pedal edema Neurological exam: PRESENT: alert, awake, oriented to person, oriented to place, oriented to time, oriented to situation, CN II-XII grossly intact. ABSENT: motor sensory deficit Psychiatric exam: PRESENT: appropriate affect, normal mood. ABSENT: homicidal ideation, suicidal ideation Skin exam: PRESENT: dry, intact, warm. ABSENT: cyanosis, rash Results Laboratory Results: 08/21/20 16:00 08/21/20 16:00 Impressions: Lumbar Spine X-Ray 08/21/20 15:38 IMPRESSION: Sclerotic appearance of the osseous structures - does the patient have a history of malignancy? - without a superimposed acute fracture or malalignment of the lumbar spine. Abdomen/Pelvis CT 08/21/20 18:04 IMPRESSION: Extensive osseous metastases. Partial colectomy. No other significant finding in the abdomen or pelvis. Chest CT 08/21/20 18:04 IMPRESSION: Osseous metastases. No acute findings within the chest. Assessment & Plan - Diagnosis (1) Osseous metastasis Is this a current diagnosis for this admission?: Yes Plan: No further radiation plan for now. His pain seems controlled with current pain regimen. I believe it is the bone mets that has caused his weakness, and hopefully a rehab stay could improve that. (2) Prostate cancer Is this a current diagnosis for this admission?: Yes Plan: Ultimately he will need further work-up but for now he will continue on oral Casodex alone. This is a relatively inexpensive medication so he should be able to continue that in rehab. We would not initiate any further work-up or treatment until after rehab stay is completed. (3) Pain, neoplasm-related Is this a current diagnosis for this admission?: Yes Plan: Continue current pain regimen - Time Time Spent with patient: 35 or more minutes
[2020-08-26] MEDS: MAGNESIUM OXIDE 400 MG TABLET PO SCH (11:26)
[2020-08-26] MEDS: FERROUS SULFATE 325 MG TABLET PO SCH (11:27)
[2020-08-26] MEDS: FAMOTIDINE 20 MG TABLET PO SCH ×2 (11:27→22:31)
[2020-08-26] MEDS: BICALUTAMIDE 50 MG TABLET PO SCH (11:27)
[2020-08-26] MEDS: ENOXAPARIN SODIUM INJ 40 MG/0.4 ML DISP.SYRIN SUBCUT SCH (11:27)
--- NOTE | 2020-08-26 13:40 | PDOC PROGRESS REPORT ---
Subjective Date:: 08/26/20 Subjective:: Patient seen in his bed waiting transport to radiation oncology. He has been en couraged to take his medication as prescribed. I will also place him on oral narcotic as this may be more palatable to him. He states that he is comfortable. Patient still unable to tolerate radiation therapy. Plan is for him to go to rehab. I did reemphasized to patient that he has the choice to decide on what kind of management he wants including stopping his treatment if that is his choice. Reason For Visit: METASTASIS PROSTATE CANCER Physical Exam Vital Signs: Temp Pulse Resp BP Pulse Ox 97.4 F 93 16 121/65 97 08/26/20 09:16 08/26/20 07:53 08/26/20 07:53 08/26/20 07:53 08/26/20 07:53 Intake & Output 08/25/20 08/26/20 08/27/20 06:59 06:59 06:59 Intake Total 1410 2018 596 Output Total 2650 1400 Balance -1240 618 596 Weight 69.1 kg 69.1 kg General appearance: PRESENT: no acute distress, well-developed Head exam: PRESENT: atraumatic, normocephalic Eye exam: PRESENT: conjunctiva pink, EOMI, PERRLA. ABSENT: scleral icterus Ear exam: PRESENT: normal external ear exam Mouth exam: PRESENT: moist, tongue midline Neck exam: ABSENT: carotid bruit, JVD, lymphadenopathy, thyromegaly Respiratory exam: PRESENT: clear to auscultation aldair. ABSENT: rales, rhonchi, wheezes Cardiovascular exam: PRESENT: RRR, +S1, +S2. ABSENT: diastolic murmur, rubs, systolic murmur Pulses: PRESENT: normal dorsalis pedis pul Vascular exam: PRESENT: normal capillary refill GI/Abdominal exam: PRESENT: normal bowel sounds, soft. ABSENT: distended, guarding, mass, organolmegaly, rebound, tenderness Rectal exam: PRESENT: deferred Extremities exam: PRESENT: full ROM. ABSENT: calf tenderness, clubbing, pedal edema Neurological exam: PRESENT: alert, awake, oriented to person, oriented to place, oriented to time, oriented to situation, CN II-XII grossly intact. ABSENT: motor sensory deficit Psychiatric exam: PRESENT: appropriate affect, normal mood. ABSENT: homicidal ideation, suicidal ideation Skin exam: PRESENT: dry, intact, warm. ABSENT: cyanosis, rash Results Laboratory Results: 08/21/20 16:00 08/21/20 16:00 Impressions: Lumbar Spine X-Ray 08/21/20 15:38 IMPRESSION: Sclerotic appearance of the osseous structures - does the patient have a history of malignancy? - without a superimposed acute fracture or malalignment of the lumbar spine. Abdomen/Pelvis CT 08/21/20 18:04 IMPRESSION: Extensive osseous metastases. Partial colectomy. No other significant finding in the abdomen or pelvis. Chest CT 08/21/20 18:04 IMPRESSION: Osseous metastases. No acute findings within the chest. Assessment and Plan - Diagnosis (1) Osseous metastasis Is this a current diagnosis for this admission?: Yes Plan: Patient presents with back pain Alk phosphatase was elevated [place] 2965 CT abdomen and pelvis were done and showed multiple extensive osseous metastatic lesions but no primary was identified Kidney function is normal and no significant anemia to consider multiple myeloma Will manage pain with morphine Ordered PSA Oncology consult placed 08/25 appreciate oncology input. Patient scheduled for radiation therapy today 08/26 appears relatively comfortable. We will continue with pain control and adjust medications as needed (2) Pain, neoplasm-related Is this a current diagnosis for this admission?: Yes Plan: Significantly better. Fentanyl patch. Still has as needed morphine. 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 Despite multiple conversations regarding importance of MRI to evaluate for cord compression and offering anxiolytics pre-MRI, patient has declined MRI due to anxiety/claustrophobia, lack of trust in medical billing specialist and other worries. On dexamethasone and bicalutamide Oncology is arranging for radiation oncology to see patient to initiate radiation therapy. 08/25 further management as per oncology 08/26 further management on hold for now (4) Debility Is this a current diagnosis for this admission?: Yes (5) Complicated UTI (urinary tract infection) Is this a current diagnosis for this admission?: Yes Plan: Klebsiella and Ecoli UTI. c/W Keflex. Day 5 abx. (6) Lumbosacral radiculopathy Is this a current diagnosis for this admission?: Yes - Time Time Spent with patient: 15-24 minutes Anticipated Discharge Disposition: [facility] Anticipated Discharge Timeframe: within 72 hours
[2020-08-26] MEDS: MIRTAZAPINE 15 MG TABLET PO SCH (22:31)
[2020-08-26] MEDS: FINASTERIDE 5 MG TABLET PO SCH (22:31)
[2020-08-27] MEDS: CEPHALEXIN 500 MG CAPSULE PO SCH ×5 (00:02→23:22)
[2020-08-27] MEDS: DEXAMETHASONE SOD PHOSPHATE INJ 4 MG/1 ML VIAL IV SCH ×5 (00:02→23:22)
[2020-08-27] MEDS: LEVOTHYROXINE SODIUM 0.025 MG TABLET PO SCH (05:54)
--- NOTE | 2020-08-27 07:57 | PDOC PROGRESS REPORT ---
Subjective Date:: 08/27/20 Subjective:: Pain controlled w/ current fentanyl patch, not taking b/t meds Reason For Visit: METASTASIS PROSTATE CANCER Physical Exam Vital Signs: Temp Pulse Resp BP Pulse Ox 98.6 F 88 16 110/59 L 96 08/27/20 00:00 08/27/20 00:00 08/27/20 00:00 08/27/20 00:00 08/27/20 00:00 Intake & Output 08/26/20 08/27/20 08/28/20 06:59 06:59 06:59 Intake Total 2017 2011 Output Total 1400 2800 Balance 618 -788 Weight 69.1 kg 69.1 kg General appearance: PRESENT: no acute distress, well-developed, well-nourished Head exam: PRESENT: atraumatic, normocephalic Eye exam: PRESENT: conjunctiva pink, EOMI, PERRLA. ABSENT: scleral icterus Ear exam: PRESENT: normal external ear exam Mouth exam: PRESENT: moist, tongue midline Neck exam: ABSENT: carotid bruit, JVD, lymphadenopathy, thyromegaly Respiratory exam: PRESENT: clear to auscultation aldair. ABSENT: rales, rhonchi, wheezes Cardiovascular exam: PRESENT: RRR. ABSENT: diastolic murmur, rubs, systolic murmur Pulses: PRESENT: normal dorsalis pedis pul Vascular exam: PRESENT: normal capillary refill GI/Abdominal exam: PRESENT: normal bowel sounds, soft. ABSENT: distended, guarding, mass, organolmegaly, rebound, tenderness Rectal exam: PRESENT: deferred Extremities exam: PRESENT: full ROM. ABSENT: calf tenderness, clubbing, pedal edema Neurological exam: PRESENT: alert, awake, oriented to person, oriented to place, oriented to time, oriented to situation, CN II-XII grossly intact. ABSENT: motor sensory deficit Psychiatric exam: PRESENT: appropriate affect, normal mood. ABSENT: homicidal ideation, suicidal ideation Skin exam: PRESENT: dry, intact, warm. ABSENT: cyanosis, rash Results Laboratory Results: 08/21/20 16:00 08/21/20 16:00 08/21/20 21:50 Blood Blood Culture - Final NO GROWTH IN 5 DAYS 08/21/20 21:31 Blood Blood Culture - Final NO GROWTH IN 5 DAYS Impressions: Lumbar Spine X-Ray 08/21/20 15:38 IMPRESSION: Sclerotic appearance of the osseous structures - does the patient have a history of malignancy? - without a superimposed acute fracture or malalignment of the lumbar spine. Abdomen/Pelvis CT 08/21/20 18:04 IMPRESSION: Extensive osseous metastases. Partial colectomy. No other significant finding in the abdomen or pelvis. Chest CT 08/21/20 18:04 IMPRESSION: Osseous metastases. No acute findings within the chest. Assessment & Plan - Diagnosis (1) Osseous metastasis Is this a current diagnosis for this admission?: Yes Plan: on pain control, working w/ PT, hopeful rehab placement soon (2) Prostate cancer Is this a current diagnosis for this admission?: Yes Plan: cont casodex, start more rx after rehab stay completed (3) Pain, neoplasm-related Is this a current diagnosis for this admission?: Yes Plan: cont current meds - Time Time Spent with patient: 15-24 minutes
[2020-08-27] MEDS: BICALUTAMIDE 50 MG TABLET PO SCH (10:49)
[2020-08-27] MEDS: FAMOTIDINE 20 MG TABLET PO SCH ×2 (10:49→21:56)
[2020-08-27] MEDS: ENOXAPARIN SODIUM INJ 40 MG/0.4 ML DISP.SYRIN SUBCUT SCH (10:49)
[2020-08-27] MEDS: FERROUS SULFATE 325 MG TABLET PO SCH (10:49)
[2020-08-27] MEDS: MAGNESIUM OXIDE 400 MG TABLET PO SCH (10:49)
--- NOTE | 2020-08-27 16:16 | PDOC PROGRESS REPORT ---
Subjective Date:: 08/27/20 Subjective:: Patient seen in his bed waiting transport to radiation oncology. He has been en couraged to take his medication as prescribed. I will also place him on oral narcotic as this may be more palatable to him. He states that he is comfortable. Patient still unable to tolerate radiation therapy. Plan is for him to go to rehab. I did reemphasized to patient that he has the choice to decide on what kind of management he wants including stopping his treatment if that is his choice. 08/27 Patient offers no new complaints. He says his pain is much better tolerated Reason For Visit: METASTASIS PROSTATE CANCER Physical Exam Vital Signs: Temp Pulse Resp BP Pulse Ox 98.2 F 77 16 120/56 L 97 08/27/20 11:12 08/27/20 11:12 08/27/20 11:12 08/27/20 11:12 08/27/20 11:12 Intake & Output 08/26/20 08/27/20 08/28/20 06:59 06:59 06:59 Intake Total 2017 Output Total 1400 2800 225 Balance 618 -788 -225 Weight 69.1 kg 69.1 kg General appearance: PRESENT: no acute distress Head exam: PRESENT: atraumatic, normocephalic Eye exam: PRESENT: conjunctiva pink, EOMI, PERRLA. ABSENT: scleral icterus Ear exam: PRESENT: normal external ear exam Mouth exam: PRESENT: moist, tongue midline Neck exam: ABSENT: carotid bruit, JVD, lymphadenopathy, thyromegaly Respiratory exam: PRESENT: clear to auscultation aldair. ABSENT: rales, rhonchi, wheezes Cardiovascular exam: PRESENT: RRR, +S1, +S2. ABSENT: diastolic murmur, rubs, systolic murmur Pulses: PRESENT: normal dorsalis pedis pul Vascular exam: PRESENT: normal capillary refill GI/Abdominal exam: PRESENT: normal bowel sounds, soft. ABSENT: distended, guarding, mass, organolmegaly, rebound, tenderness Rectal exam: PRESENT: deferred Extremities exam: PRESENT: full ROM. ABSENT: calf tenderness, clubbing, pedal edema Neurological exam: PRESENT: alert, awake, oriented to person, oriented to place, oriented to time, oriented to situation, CN II-XII grossly intact. ABSENT: motor sensory deficit Psychiatric exam: PRESENT: appropriate affect, normal mood. ABSENT: homicidal ideation, suicidal ideation Skin exam: PRESENT: dry, intact, warm. ABSENT: cyanosis, rash Results Laboratory Results: 08/21/20 16:00 08/21/20 16:00 08/21/20 21:50 Blood Blood Culture - Final NO GROWTH IN 5 DAYS 08/21/20 21:31 Blood Blood Culture - Final NO GROWTH IN 5 DAYS Impressions: Lumbar Spine X-Ray 08/21/20 15:38 IMPRESSION: Sclerotic appearance of the osseous structures - does the patient have a history of malignancy? - without a superimposed acute fracture or malalignment of the lumbar spine. Abdomen/Pelvis CT 08/21/20 18:04 IMPRESSION: Extensive osseous metastases. Partial colectomy. No other significant finding in the abdomen or pelvis. Chest CT 08/21/20 18:04 IMPRESSION: Osseous metastases. No acute findings within the chest. Assessment and Plan - Diagnosis (1) Osseous metastasis Is this a current diagnosis for this admission?: Yes Plan: Patient presents with back pain Alk phosphatase was elevated [place] 2965 CT abdomen and pelvis were done and showed multiple extensive osseous metastatic lesions but no primary was identified Kidney function is normal and no significant anemia to consider multiple myeloma Will manage pain with morphine Ordered PSA Oncology consult placed 08/25 appreciate oncology input. Patient scheduled for radiation therapy today 08/26 appears relatively comfortable. We will continue with pain control and adjust medications as needed 08/27 Plan is for rehab once bed available (2) Pain, neoplasm-related Is this a current diagnosis for this admission?: Yes Plan: Significantly better. Fentanyl patch. Still has as needed morphine. 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 Despite multiple conversations regarding importance of MRI to evaluate for cord compression and offering anxiolytics pre-MRI, patient has declined MRI due to anxiety/claustrophobia, lack of trust in medical superintendent and other worries. On dexamethasone and bicalutamide Oncology is arranging for radiation oncology to see patient to initiate radiation therapy. 08/25 further management as per oncology 08/26 further management on hold for now Follow-up with oncology as outpatient (4) Debility Is this a current diagnosis for this admission?: Yes (5) Complicated UTI (urinary tract infection) Is this a current diagnosis for this admission?: Yes Plan: Klebsiella and Ecoli UTI. c/W Keflex. Day 6 abx. Likely stop antibiotics after 7 days (6) Lumbosacral radiculopathy Is this a current diagnosis for this admission?: Yes - Time Time Spent with patient: 15-24 minutes Medications reviewed and adjusted accordingly: Yes Anticipated Discharge Disposition: [facility] Facility Anticipated Discharge Timeframe: within 48 hours
[2020-08-27] MEDS: FINASTERIDE 5 MG TABLET PO SCH (21:56)
[2020-08-27] MEDS: MIRTAZAPINE 15 MG TABLET PO SCH (21:56)
[2020-08-28] MEDS: DEXAMETHASONE SOD PHOSPHATE INJ 4 MG/1 ML VIAL IV SCH ×3 (05:29→17:23)
[2020-08-28] MEDS: LEVOTHYROXINE SODIUM 0.025 MG TABLET PO SCH (05:29)
[2020-08-28] MEDS: CEPHALEXIN 500 MG CAPSULE PO SCH ×4 (05:29→23:19)
[2020-08-28 06:03] LABS: HEMATOCRIT 33.8 % (37.9-51.0); HEMOGLOBIN 11.5 g/dL (13.5-17.0); MEAN CORPUSCULAR HEMOGLOBIN 32.1 pg (27.0-33.4); MEAN CORPUSCULAR HGB CONC 33.9 g/dL (32.0-36.0); MEAN CORPUSCULAR VOLUME 95 fl (80-97); PLATELET COUNT 190 10^3/uL (150-450); RED BLOOD COUNT 3.57 10^6/uL (4.35-5.55)
[2020-08-28 06:20] LABS: ANION GAP 6 (5-19); BLOOD UREA NITROGEN 19 mg/dL (7-20); CARBON DIOXIDE 26 mmol/L (22-30); CHLORIDE 105 mmol/L (98-107); GLUCOSE 105 mg/dL (75-110); POTASSIUM 3.5 mmol/L (3.6-5.0)
[2020-08-28 06:25] LABS: ABSOLUTE LYMPHOCYTES# (MANUAL) 3.5 10^3/uL (0.5-4.7); ABSOLUTE MONOCYTES # (MANUAL) 0.6 10^3/uL (0.1-1.4); BAND NEUTROPHILS % (MANUAL) 2 % (3-5); BASOPHILS % (MANUAL) 0 % (0-2); EOSINOPHILS % (MANUAL) 1 % (0-6); LYMPHOCYTES % (MANUAL) 39 % (13-45); MONOCYTES % (MANUAL) 7 % (3-13); NUCLEATED RED BLOOD CELLS 2 /100 WBC (0); SEGMENTED NEUTROPHILS % (MAN) 51 % (42-78); TOTAL CELLS COUNTED 100
[2020-08-28 06:28] LABS: ANISOCYTOSIS SLIGHT; PLATELET COMMENT ADEQUATE; POLYCHROMASIA SLIGHT
[2020-08-28 06:29] LABS: CALCIUM 6.9 mg/dL (8.4-10.2)
--- NOTE | 2020-08-28 07:43 | PDOC PROGRESS REPORT ---
Subjective Date:: 08/28/20 Subjective:: No acute events overnight and patient seems comfortable on current pain regimen. However he did not work with PT yesterday because of ostomy issues, but today pressed that he had to work with physical therapy in order to qualify appropriately for rehab. I believe he can work with physical therapy, and I do believe he does have the ability to receive appropriate rehabilitation. Reason For Visit: METASTASIS PROSTATE CANCER Physical Exam Vital Signs: Temp Pulse Resp BP Pulse Ox 98.6 F 92 16 109/46 L 97 08/28/20 00:10 08/28/20 00:10 08/28/20 00:10 08/28/20 00:10 08/28/20 00:10 Intake & Output 08/27/20 08/28/20 08/29/20 06:59 06:59 06:59 Intake Total 2011 580 Output Total 2806 7400 Balance -788 -2434 Weight 69.1 kg 73.5 kg General appearance: PRESENT: no acute distress, well-developed, well-nourished Head exam: PRESENT: atraumatic, normocephalic Eye exam: PRESENT: conjunctiva pink, EOMI, PERRLA. ABSENT: scleral icterus Ear exam: PRESENT: normal external ear exam Mouth exam: PRESENT: moist, tongue midline Neck exam: ABSENT: carotid bruit, JVD, lymphadenopathy, thyromegaly Respiratory exam: PRESENT: clear to auscultation aldair. ABSENT: rales, rhonchi, wheezes Cardiovascular exam: PRESENT: RRR. ABSENT: diastolic murmur, rubs, systolic murmur Pulses: PRESENT: normal dorsalis pedis pul Vascular exam: PRESENT: normal capillary refill GI/Abdominal exam: PRESENT: normal bowel sounds, soft. ABSENT: distended, guarding, mass, organolmegaly, rebound, tenderness Rectal exam: PRESENT: deferred Extremities exam: PRESENT: full ROM. ABSENT: calf tenderness, clubbing, pedal edema Neurological exam: PRESENT: alert, awake, oriented to person, oriented to place, oriented to time, oriented to situation, CN II-XII grossly intact. ABSENT: motor sensory deficit Psychiatric exam: PRESENT: appropriate affect, normal mood. ABSENT: homicidal ideation, suicidal ideation Skin exam: PRESENT: dry, intact, warm. ABSENT: cyanosis, rash Results Laboratory Results: 08/28/20 04:38 08/28/20 04:38 08/28/20 08/28/20 08/28/20 04:38 04:38 04:38 WBC 9.0 RBC 3.57 L Hgb 11.5 L Hct 33.8 L MCV 95 MCH 32.1 MCHC 33.9 RDW 15.0 H Plt Count 190 Seg Neutrophils % Not Reportable Sodium 136.8 L Potassium 3.5 L Chloride 105 Carbon Dioxide 26 Anion Gap 6 BUN 19 Creatinine 0.66 Est GFR ( Amer) > 60 Glucose 105 Calcium 6.9 L* Albumin 3.2 L Impressions: Lumbar Spine X-Ray 08/21/20 15:38 IMPRESSION: Sclerotic appearance of the osseous structures - does the patient have a history of malignancy? - without a superimposed acute fracture or mal alignment of the lumbar spine. Abdomen/Pelvis CT 08/21/20 18:04 IMPRESSION: Extensive osseous metastases. Partial colectomy. No other significant finding in the abdomen or pelvis. Chest CT 08/21/20 18:04 IMPRESSION: Osseous metastases. No acute findings within the chest. Assessment & Plan - Diagnosis (1) Osseous metastasis Is this a current diagnosis for this admission?: Yes Plan: Continue current pain regimen, optimize as needed (2) Prostate cancer Is this a current diagnosis for this admission?: Yes Plan: Continue Casodex, needs to be on for about 2 to 4 weeks before we would initiate Lupron. (3) Pain, neoplasm-related Is this a current diagnosis for this admission?: Yes Plan: Continue current pain regimen - Time Time Spent with patient: 25-34 minutes
[2020-08-28] MEDS: ENOXAPARIN SODIUM INJ 40 MG/0.4 ML DISP.SYRIN SUBCUT SCH (09:49)
[2020-08-28] MEDS: MAGNESIUM OXIDE 400 MG TABLET PO SCH (09:54)
[2020-08-28] MEDS: FAMOTIDINE 20 MG TABLET PO SCH ×2 (09:54→21:10)
[2020-08-28] MEDS: FENTANYL 25 MCG/HR PATCH.TD72 TD SCH (09:54)
[2020-08-28] MEDS: BICALUTAMIDE 50 MG TABLET PO SCH (09:54)
[2020-08-28] MEDS: FERROUS SULFATE 325 MG TABLET PO SCH (09:54)
--- NOTE | 2020-08-28 13:34 | PDOC PROGRESS REPORT ---
Subjective Date:: 08/28/20 Subjective:: Patient seen in his bed waiting transport to radiation oncology. He has been en couraged to take his medication as prescribed. I will also place him on oral narcotic as this may be more palatable to him. He states that he is comfortable. Patient still unable to tolerate radiation therapy. Plan is for him to go to rehab. I did reemphasized to patient that he has the choice to decide on what kind of management he wants including stopping his treatment if that is his choice. 08/27 Patient offers no new complaints. He says his pain is much better tolerated 08/28 Patient's condition remains the same. He states his pain is controlled Reason For Visit: METASTASIS PROSTATE CANCER Physical Exam Vital Signs: Temp Pulse Resp BP Pulse Ox 98.1 F 83 16 91/40 L 99 08/28/20 11:23 08/28/20 11:23 08/28/20 11:23 08/28/20 11:23 08/28/20 11:23 Intake & Output 08/27/20 08/28/20 08/29/20 06:59 06:59 06:59 Intake Total 2011 580 480 Output Total 2800 2275 550 Balance -788 -1695 -70 Weight 69.1 kg 73.5 kg General appearance: PRESENT: no acute distress, well-nourished Head exam: PRESENT: atraumatic, normocephalic Eye exam: PRESENT: conjunctiva pink, EOMI, PERRLA. ABSENT: scleral icterus Ear exam: PRESENT: normal external ear exam Mouth exam: PRESENT: moist, tongue midline Neck exam: ABSENT: carotid bruit, JVD, lymphadenopathy, thyromegaly Respiratory exam: PRESENT: clear to auscultation aldair. ABSENT: rales, rhonchi, wheezes Cardiovascular exam: PRESENT: RRR, +S1, +S2. ABSENT: diastolic murmur, rubs, systolic murmur Pulses: PRESENT: normal dorsalis pedis pul Vascular exam: PRESENT: normal capillary refill GI/Abdominal exam: PRESENT: normal bowel sounds, soft. ABSENT: distended, guarding, mass, organolmegaly, rebound, tenderness Rectal exam: PRESENT: deferred Extremities exam: PRESENT: full ROM. ABSENT: calf tenderness, clubbing, pedal edema Neurological exam: PRESENT: alert, awake, oriented to person, oriented to place, oriented to time, oriented to situation, CN II-XII grossly intact. ABSENT: motor sensory deficit Psychiatric exam: PRESENT: appropriate affect, normal mood. ABSENT: homicidal ideation, suicidal ideation Skin exam: PRESENT: dry, intact, warm. ABSENT: cyanosis, rash Results Laboratory Results: 08/28/20 04:38 08/28/20 04:38 08/28/20 08/28/20 08/28/20 04:38 04:38 04:38 WBC 9.0 RBC 3.57 L Hgb 11.5 L Hct 33.8 L MCV 95 MCH 32.1 MCHC 33.9 RDW 15.0 H Plt Count 190 Seg Neutrophils % Not Reportable Sodium 136.8 L Potassium 3.5 L Chloride 105 Carbon Dioxide 26 Anion Gap 6 BUN 19 Creatinine 0.66 Est GFR ( Amer) > 60 Glucose 105 Calcium 6.9 L* Albumin 3.2 L Impressions: Lumbar Spine X-Ray 08/21/20 15:38 IMPRESSION: Sclerotic appearance of the osseous structures - does the patient have a history of malignancy? - without a superimposed acute fracture or malalignment of the lumbar spine. Abdomen/Pelvis CT 08/21/20 18:04 IMPRESSION: Extensive osseous metastases. Partial colectomy. No other significant finding in the abdomen or pelvis. Chest CT 08/21/20 18:04 IMPRESSION: Osseous metastases. No acute findings within the chest. Assessment and Plan - Diagnosis (1) Osseous metastasis Is this a current diagnosis for this admission?: Yes (2) Pain, neoplasm-related Is this a current diagnosis for this admission?: Yes (3) Prostate cancer metastatic to bone Is this a current diagnosis for this admission?: Yes (4) Debility Is this a current diagnosis for this admission?: Yes (5) Complicated UTI (urinary tract infection) Is this a current diagnosis for this admission?: Yes (6) Lumbosacral radiculopathy Is this a current diagnosis for this admission?: Yes - Plan Summary Summary: Patient is currently awaiting placement in a assisted facility. His pain appears to be relatively well controlled on his current regimen. He can be discharged once a bed is available - Time Time Spent with patient: Less than 15 minutes Medications reviewed and adjusted accordingly: Yes Anticipated Discharge Disposition: Snf Facility Anticipated Discharge Timeframe: when bed available
--- NOTE | 2020-08-28 15:16 | PDOC TRANSFER SUMMARY ---
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 His pain appears to be relatively well controlled on his current regimen. He can be discharged once a bed is available - Additional Information Resuscitation Status: Full Code Referrals: JUAREZ AVENDAÑO PA-C [Primary Care Provider] - Follow up as needed BRIAN BAHENA MD [ACTIVE STAFF] - (Call and make appointmnt) Prescriptions: Dexamethasone [Decadron 4 Mg Tablet] 4 mg PO Q12 #14 tablet Fentanyl [Duragesic 25 mcg/hr Transdermal Patch] 1 each TD Q3D@1000 #1 patch.[id number] Home Medications: Finasteride [Proscar 5 mg Tablet] 5 mg PO QHS 30 Days #30 tablet 12/31/19 Ferrous Sulfate [Feosol 325 mg Tablet] 325 mg PO DAILY 08/22/20 Levothyroxine Sodium [Synthroid 0.025 mg Tablet] 0.025 mg PO QAM 08/22/20 Magnesium Oxide [Mag-Ox 400 mg Tablet] 400 mg PO DAILY 08/22/20 Mirtazapine [Remeron 15 mg Tablet] 7.5 mg PO QHS 08/22/20 Bicalutamide [Casodex 50 mg Tablet] 50 mg PO DAILY tablet 08/28/20 Dexamethasone [Decadron 4 Mg Tablet] 4 mg PO Q12 #14 tablet 08/28/20 Fentanyl [Duragesic 25 mcg/hr Transdermal Patch] 1 each TD Q3D@1000 #1 patch.[id number] 08/28/20 History of Present Illiness History of Present Illness: JORDYN PADRON is a 70 year old male Patient was admitted with low back pain with radiation down to his lower extremities. Hospital Course Hospital Course: Patient was admitted with low back pain with radiation down to his lower extremities. Work-up done in the emergency room revealed elevated alkaline phosphatase as well as CT abdomen and pelvis which showed extensive osseous metastasis. The back pain was felt to be secondary to metastatic lesion. Patient was also found to have a urinary tract infection for which he was treated. Oncology consult was obtained and it was felt that patient likely has prostate cancer. His PSA was 992 and he was started on Casodex as well as. Attempts were made still start patient on radiation therapy but he was unable to tolerate these. Patient is being transferred to rehabilitation hopefully short-term to get stronger and he will follow up with oncology as outpatient Physical Exam Vital Signs: Temp Pulse Resp BP Pulse Ox 98.1 F 83 16 100/46 L 99 08/28/20 11:23 08/28/20 11:23 08/28/20 11:23 08/28/20 11:23 08/28/20 11:23 Intake & Output 08/27/20 08/28/20 08/29/20 06:59 06:59 06:59 Intake Total 2011 580 480 Output Total 2800 2275 550 Balance -788 -1695 -70 Weight 69.1 kg 73.5 kg General appearance: PRESENT: no acute distress Head exam: PRESENT: atraumatic, normocephalic Eye exam: PRESENT: conjunctiva pink, EOMI, PERRLA. ABSENT: scleral icterus Mouth exam: PRESENT: moist, tongue midline Neck exam: ABSENT: carotid bruit, JVD, lymphadenopathy, thyromegaly Respiratory exam: PRESENT: clear to auscultation aldair, unlabored. ABSENT: rales, rhonchi, wheezes Cardiovascular exam: PRESENT: RRR, +S1, +S2. ABSENT: diastolic murmur, rubs, systolic murmur Pulses: PRESENT: normal dorsalis pedis pul Vascular exam: PRESENT: normal capillary refill GI/Abdominal exam: PRESENT: normal bowel sounds, soft. ABSENT: distended, guarding, mass, organolmegaly, rebound, tenderness Rectal exam: PRESENT: deferred Extremities exam: ABSENT: calf tenderness, clubbing, pedal edema Neurological exam: PRESENT: alert, awake, oriented to person, oriented to place, oriented to time, oriented to situation, CN II-XII grossly intact. ABSENT: motor sensory deficit Psychiatric exam: PRESENT: appropriate affect, normal mood. ABSENT: homicidal ideation, suicidal ideation Skin exam: PRESENT: dry, intact, warm. ABSENT: cyanosis, rash Results Laboratory Results: WBC 9.0 10^3/uL (4.0-10.5) 08/28/20 04:38 RBC 3.57 10^6/uL (4.35-5.55) L 08/28/20 04:38 Hgb 11.5 g/dL (13.5-17.0) L 08/28/20 04:38 Hct 33.8 % (37.9-51.0) L 08/28/20 04:38 MCV 95 fl (80-97) 08/28/20 04:38 MCH 32.1 pg (27.0-33.4) 08/28/20 04:38 MCHC 33.9 g/dL (32.0-36.0) 08/28/20 04:38 RDW 15.0 % (11.5-14.0) H 08/28/20 04:38 Plt Count 190 10^3/uL (150-450) 08/28/20 04:38 Lymph % (Auto) Not Reportable 08/28/20 04:38 [place] % (Auto) Not Reportable 08/28/20 04:38 Eos % (Auto) Not Reportable 08/28/20 04:38 Baso % (Auto) Not Reportable 08/28/20 04:38 Absolute Neuts (auto) Not Reportable 08/28/20 04:38 Absolute Lymphs (auto) Not Reportable 08/28/20 04:38 Absolute Monos (auto) Not Reportable 08/28/20 04:38 Absolute Eos (auto) Not Reportable 08/28/20 04:38 Absolute Basos (auto) Not Reportable 08/28/20 04:38 Total Counted 100 08/28/20 04:38 Seg Neutrophils % Not Reportable 08/28/20 04:38 Seg Neuts % (Manual) 51 % (42-78) 08/28/20 04:38 Band Neutrophils % 2 % (3-5) L 08/28/20 04:38 Lymphocytes % (Manual) 39 % (13-45) 08/28/20 04:38 Monocytes % (Manual) 7 % (3-13) 08/28/20 04:38 Eosinophils % (Manual) 1 % (0-6) 08/28/20 04:38 Basophils % (Manual) 0 % (0-2) 08/28/20 04:38 Abs Neuts (Manual) 4.8 10^3/uL (1.7-8.2) 08/28/20 04:38 Abs Lymphs (Manual) 3.5 10^3/uL (0.5-4.7) 08/28/20 04:38 Abs Monocytes (Manual) 0.6 10^3/uL (0.1-1.4) 08/28/20 04:38 Absolute Eos (Manual) 0.1 10^3/uL (0.0-0.6) 08/28/20 04:38 Abs Basophils (Manual) 0.0 10^3/uL (0.0-0.2) 08/28/20 04:38 Nucleated RBCs 2 /100 WBC (0) 08/28/20 04:38 Platelet Comment ADEQUATE 08/28/20 04:38 Polychromasia SLIGHT 08/28/20 04:38 Anisocytosis SLIGHT 08/28/20 04:38 Sodium 136.8 mmol/L (137-145) L 08/28/20 04:38 Potassium 3.5 mmol/L (3.6-5.0) L 08/28/20 04:38 Chloride 105 mmol/L (98-107) 08/28/20 04:38 Carbon Dioxide 26 mmol/L (22-30) 08/28/20 04:38 Anion Gap 6 (5-19) 08/28/20 04:38 BUN 19 mg/dL (7-20) 08/28/20 04:38 Creatinine 0.66 mg/dL (0.52-1.25) 08/28/20 04:38 Est GFR ( Amer) > 60 (>60) 08/28/20 04:38 Est GFR (MDRD) Non-Af > 60 (>60) 08/28/20 04:38 Glucose 105 mg/dL (75-110) 08/28/20 04:38 Calcium 6.9 mg/dL (8.4-10.2) L* 08/28/20 04:38 Total Bilirubin 0.8 mg/dL (0.2-1.3) 08/21/20 16:00 Direct Bilirubin 0.1 mg/dL (0.0-0.4) 08/21/20 16:00 Neonat Total Bilirubin Not Reportable 08/21/20 16:00 Neonat Direct Bilirubin Not Reportable 08/21/20 16:00 Neonat Indirect Bili Not Reportable 08/21/20 16:00 AST 50 U/L (17-59) 08/21/20 16:00 ALT 24 U/L (<50) 08/21/20 16:00 Alkaline Phosphatase 2965 U/L (38-126) H 08/21/20 16:00 Total Protein 7.7 g/dL (6.3-8.2) 08/21/20 16:00 Albumin 3.2 g/dL (3.5-5.0) L 08/28/20 04:38 Prostate Specific Ag 992.000 ng/mL (<4.00) H 08/21/20 16:00 Urine Color YELLOW 08/21/20 16:00 Urine Appearance SLIGHTLY-CLOUDY 08/21/20 16:00 Urine pH 6.0 (5.0-9.0) 08/21/20 16:00 Ur Specific [place] 1.010 08/21/20 16:00 Urine Protein NEGATIVE mg/dL (NEGATIVE) 08/21/20 16:00 Urine Glucose (UA) NEGATIVE mg/dL (NEGATIVE) 08/21/20 16:00 Urine Ketones NEGATIVE mg/dL (NEGATIVE) 08/21/20 16:00 Urine Blood SMALL (NEGATIVE) H 08/21/20 16:00 Urine Nitrite NEGATIVE (NEGATIVE) 08/21/20 16:00 Urine Bilirubin NEGATIVE (NEGATIVE) 08/21/20 16:00 Urine Urobilinogen NEGATIVE mg/dL (<2.0) 08/21/20 16:00 Ur Leukocyte Esterase SMALL (NEGATIVE) H 08/21/20 16:00 Urine WBC (Auto) 15 /HPF 08/21/20 16:00 Urine RBC (Auto) 0 /HPF 08/21/20 16:00 Urine Bacteria (Auto) 3+ /HPF 08/21/20 16:00 Urine Mucus (Auto) RARE /LPF 08/21/20 16:00 Urine Ascorbic Acid NEGATIVE (NEGATIVE) 08/21/20 16:00 COVID-19 Source See comment 08/26/20 13:20 Impressions: Lumbar Spine X-Ray 08/21/20 15:38 IMPRESSION: Sclerotic appearance of the osseous structures - does the patient have a history of malignancy? - without a superimposed acute fracture or malalignment of the lumbar spine. Abdomen/Pelvis CT 08/21/20 18:04 IMPRESSION: Extensive osseous metastases. Partial colectomy. No other significant finding in the abdomen or pelvis. Chest CT 08/21/20 18:04 IMPRESSION: Osseous metastases. No acute findings within the chest. Plan Health Concerns: Follow-up with oncologist as outpatient for further recommendations regarding treatment and management of his malignancy Time Spent: Greater than 30 Minutes Stroke Is this a Stroke Patient?: No Acute Heart Failure Is this a Heart Failure Patient?: No
[2020-08-28] MEDS: FINASTERIDE 5 MG TABLET PO SCH (21:10)
[2020-08-28] MEDS: MIRTAZAPINE 15 MG TABLET PO SCH (21:10)
[2020-08-29] MEDS: DEXAMETHASONE SOD PHOSPHATE INJ 4 MG/1 ML VIAL IV SCH ×3 (01:44→12:27)
[2020-08-29] MEDS: CEPHALEXIN 500 MG CAPSULE PO SCH ×2 (05:16→12:29)
[2020-08-29] MEDS: LEVOTHYROXINE SODIUM 0.025 MG TABLET PO SCH (05:16)
[2020-08-29] MEDS: ENOXAPARIN SODIUM INJ 40 MG/0.4 ML DISP.SYRIN SUBCUT SCH (10:10)
[2020-08-29] MEDS: FAMOTIDINE 20 MG TABLET PO SCH (10:15)
[2020-08-29] MEDS: MAGNESIUM OXIDE 400 MG TABLET PO SCH (10:15)
[2020-08-29] MEDS: FERROUS SULFATE 325 MG TABLET PO SCH (10:15)
[2020-08-29] MEDS: BICALUTAMIDE 50 MG TABLET PO SCH (10:16)
--- NOTE | 2020-08-29 12:04 | Progress Note ---
Provider Note Provider Note: Please see the discharge summary from August 28/2020. Vital signs have been updated an addendum added. Patient was not transferred yesterday due to technical reasons however she is medically stable for discharge and a discharge order is placed in chart
[2020-08-29 14:39] VITALS: BP 118/53
== END 2020-08-29 14:59 | DRG 723 ==
LOC: ER 14:37 → EH 23:16 → 4N 08-22 00:40 → OBSVTOIN 08-23 11:23
PROVIDERS: ADMIT Student in an Organized Health Care Education/Training Program; ATTEND Internal Medicine
DX: C61 Malignant neoplasm of prostate (principal); C79.51 Secondary malignant neoplasm of bone; N39.0 Urinary tract infection, site not specified; G89.3 Neoplasm related pain (acute) (chronic); R53.81 Other malaise; M54.17 Radiculopathy, lumbosacral region; E03.9 Hypothyroidism, unspecified; B96.20 Unspecified Escherichia coli [E. coli] as the cause of diseases classified elsewhere; B96.1 Klebsiella pneumoniae [K. pneumoniae] as the cause of diseases classified elsewhere; R33.9 Retention of urine, unspecified; F40.240 Claustrophobia; Z79.899 Other long term (current) drug therapy; Z87.891 Personal history of nicotine dependence; Z93.3 Colostomy status; Z11.59 Encounter for screening for other viral diseases
CPT/HCPCS: 36415; 71260; 72110; 74177; 80048; 80053; 81001; 82040; 84153; 85025; 87040; 87086; 87088; 87186; 87635; 96365; 96375; 99285; 0241U; C9803; G0378; J0696; J1100; J1650; J2270; J3489; J3490